=== PATIENT | male | born 1960 | race Caucasian/White ===

== ENCOUNTER 2024-03-30 17:10 | Inpatient (IN) | payer MEDICARE, SELFPAY ==
[2024-03-30] VITALS (12 sets, daily range): BP systolic 72–133; BP diastolic 36–103; PULSE 67–93; RESP 8–17; TEMP 36.3–37.6; O2SAT 93–99; BMI 24.1
--- NOTE | ~2024-03-30 | XR_ITS ---
CLINICAL HISTORY: hypotension sepsis? 1 view chest x-ray Comparison: None Findings: Consolidation within the left lower lung. Linear focus of atelectasis within the right infrahilar region. No gross evidence of pleural effusion. Normal size heart. No acute fracture. IMPRESSION: There is a focus of consolidation at the base of the left lung. This document has been electronically signed by: Nneka Ortiz MD on 03/30/2024 18:29:34
--- NOTE | 2024-03-30 17:25 | PC.NURSE ---
Addendum entered by Naida Rodriguez 03/30/24 17:28: POC rechecked 197 Original Note: poc found to be 37, IV established in left wrist d50 given.
--- NOTE | 2024-03-30 17:30 | ECG_ITS ---
Test Reason : AMS Blood Pressure : */* mmHG Vent. Rate : 79 BPM Atrial Rate : 79 BPM P-R Int : 130 ms QRS Dur : 68 ms QT Int : 396 ms P-R-T Axes : 9 -2 62 degrees QTcB Int : 454 ms Normal sinus rhythm Low voltage QRS Nonspecific T wave abnormality Abnormal ECG No previous ECGs available Referred By: Anjali Tsang Electronically Signed By: ASIF ELLISON
--- NOTE | 2024-03-30 17:31 | ED_ITS ---
HPI - Altered Mental Status General Chief Complaint: Altered Mental Status Stated Complaint: Hypotension Time Seen by Provider: 03/30/24 17:29 Source: EMS Mode of arrival: EMS Limitations: altered mental status History of Present Illness ED Provider: Dr. Anjali Tsang HPI narrative: Patient comes to the emergency room via ambulance from [facility]. According to EMS, the staff reported that at baseline, the patient is alert and oriented x3. Today, 20 minutes before EMS arrival, the patient was found unresponsive. Initially, EMS got a blood sugar of 87. When patient arrived to the ED, blood glucose was 37, patient unresponsive. Also, according to EMS, they initial blood pressure was in the 70s systolic. On arrival here was in the 110s systolic. Patient unresponsive, DNR DNI per molds form Related Data Allergies Allergy/AdvReac Type Severity Reaction Status Date / Time No Known Allergies Allergy Verified 03/30/24 17:23 Review of Systems 2 Review of Systems: Unresponsive Yes Unobtainable due to mental condition and Other PMFSH Past Medical History Medical History Hypertension Diabetes type 2 CVA (cerebral vascular accident) Social History Social History Smoked in Last 30 Days: No Use of substances other than those prescribed or required for medical reasons: No Advance Directives: Yes Advance Directives on File: Yes Advance Directives Date on File: 03/30/24 Do you have a plan to hurt others: No Plan Physical Exam ED Vital Signs: Vital Signs - 24 hr 03/30/24 17:20 03/30/24 18:02 03/30/24 19:08 Temperature 99.6 F 97.8 F Pulse Rate 93 79 71 Respiratory Rate 12 10 L 10 L Blood Pressure 119/103 H 76/45 L 91/53 L Pulse Oximetry 97 95 99 Oxygen Delivery Method Room Air Room Air Room Air 03/30/24 19:33 03/30/24 20:04 03/30/24 20:13 Temperature 97.5 F Pulse Rate 67 72 77 Respiratory Rate 8 L 12 Blood Pressure 106/65 90/51 L 101/64 Pulse Oximetry 99 Oxygen Delivery Method Room Air 03/30/24 20:21 03/30/24 20:45 03/30/24 21:20 Temperature 97.4 F 97.9 F Pulse Rate 72 72 75 Respiratory Rate 12 9 L Blood Pressure 105/36 L 104/66 111/70 Pulse Oximetry 97 Oxygen Delivery Method Room Air 03/30/24 21:45 03/30/24 23:26 03/30/24 23:43 Temperature 97.8 F 97.8 F 97.6 F Pulse Rate 68 72 69 Respiratory Rate 11 L 17 14 Blood Pressure 114/69 112/67 133/77 Pulse Oximetry 99 Oxygen Delivery Method Room Air BMI result Body Mass Index 24.1 Const Other: Appearance: Unresponsive, snoring Eyes: Pupils equal, round and reactive to light. ENT: Pharynx normal. Neck: Normal inspection. Neck supple. No lymph nodes noted. No crepitus CVS: Normal heart rate and rhythm. Pulses normal. Normal S1 and S2 Respiratory: No respiratory distress. Breath sounds normal. No Wheezing. No rales , oxygen saturation 99% on room air Abdomen: Soft and nontender. No rigidity. No distention. : Workman catheter in place Skin: Skin warm and dry. Dusky skin color. Normal skin turgor. Extremities: No lower extremity edema. No Lacerations. No Rash Neuro: Oriented X 3. No motor deficit. No sensory deficit. Moving all extremities. No slurred speech. CN 2 through 12 grossly intact Psych: calm, cooperative, normal affect Course Course Course Narrative: On arrival, patient's blood glucose 37. Patient unresponsive. Patient was given D50. Within a few minutes, patient woke up, started talking to us. Initial set of vitals: Patient's blood pressure 119/103, pulse 93, respirations 12, oxygen saturation 97% on room air All of patient's labs pending Medications Administered Discontinued Medications Generic Name Dose Route Start Last Admin Trade Name Osito PRN Reason Stop Dose Admin Ceftriaxone Sodium 1 gm 03/30/24 23:19 03/31/24 00:00 Ceftriaxone Sodium 1 Gm Vial IVPUSH 03/30/24 23:20 1 gm ONCE ONE Administration Sodium Chloride 200 mls @ 999 mls/hr 03/30/24 18:47 03/30/24 19:30 Ns IVCONT 03/30/24 18:59 Infused .Q13M ONE Infusion Magnesium Sulfate 2 gm in 50 mls @ 25 mls/hr 03/30/24 22:08 03/31/24 01:29 Magnesium Sulfate/H2o IV 03/31/24 00:07 Infused ONCE ONE Infusion Lactated Ringer's 1,000 mls @ 999 mls/hr 03/30/24 22:15 03/31/24 00:00 Lr IV 03/30/24 23:15 999 mls/hr .Q1H1M ANDREW Administration Medical Decision Making Medical Decision Making [facility] Narrative: -patient has had labile blood pressures. Patient had 2 blood pressures in the 70s, then went up to the 90s without any treatment. Chest x-ray shows consolidation of the left lower lung, patient is likely septic from pneumonia. At this time, 18:45, sepsis is suspected -patient was given a bolus of IV fluids, we are only doing a 200 mL bolus. Patient is anemic and will need blood as well, 2 units, total 1000mL of blood. Unfortunately, if we give any more fluids to the patient, this will result in hemodilution -patient's blood pressure keeps bouncing between 70s up to 90s systolic with a map of 65 I the patient becomes consistently hypotensive, we will start pressors. Patient's blood glucose improved to 98. Patient is completely awake, alert and oriented x3. I discussed with the patient that he has a low hemoglobin. Patient states that he has been told multiple times that his H and H drops. I discussed with the patient that ideally he should be getting a blood transfusion. Patient states that he has had it before, I discussed with the patient risks versus benefits, patient agreeable to proceed with the transfusion, sign the blood consent Chest x-ray shows that patient has pneumonia. However, patient has no upper respiratory symptoms. Patient is awake and alert, I discussed with the patient that he needs antibiotics and blood and antibiotics. Patient states that he only wants to receive blood. And states that he does not want to stay in the hospital. I discussed with the patient how sick he was earlier on arrival Dr. Jaeger from the Medicine team try to convince the patient to stay however patient states that he will accept the blood transfusion the antibiotics and then wants to leave, patient states that he refuses admission. We are trying to get in touch with the patient's facility to determine if patient has been assessed for capacity or if there is any healthcare proxy, there is no documentation in the papers that EMS brought. So far, patient has antibiotics and blood running. We will re-evaluate the patient in couple of hours after he gets his blood, hopefully convince him to stay. I discussed the patient with Dr. Jaeger , although the chest x-ray shows possible pneumonia. Patient has no upper respiratory symptoms at all. It is likely secondary to atelectasis rather than pneumonia. I was informed by the patient's nurses that his glucose dropped to 48. This is the 2nd time that his glucose drops. Patient is awake alert, eating. Patient was started on D5 W I discussed the above-mentioned with Dr. Jaeger, patient being admitted After taking to the patient, patient agreeable to stay Differential Diagnosis Differential Diagnoses: The differential diagnosis associated with the presentation includes (Sepsis, UTI, pneumonia) Admission/Observation Consideration of admission/observation: Escalation of care including admission/observation considered Consult Healthcare Provider Management of the patient was discussed with: Hospitalist Lab Data MDM Lab Attestation statement: I reviewed the patient's lab results. 03/30/24 17:37 03/30/24 18:26 Labs: Lab Results 03/30/24 03/30/24 03/30/24 Range/Units 17:19 17:26 17:28 WBC (4.8-10.8) X10*3/uL RBC (4.60-5.80) X10*6/uL Hgb (14.0-18.0) g/dl Hct (42.0-52.0) % MCV (80.0-98.0) fL MCH (27.0-33.0) pg MCHC (31.0-36.0) g/dl RDW (11.0-16.0) % Plt Count (160-400) X10*3/uL MPV (9.4-12.4) fL Immature Gran % (Auto) (0.0-0.4) % Neut % (Auto) (45-73) % Lymph % (Auto) (20-40) % [place] % (Auto) (2-11) % Eos % (Auto) (0-4) % Baso % (Auto) (0-2) % Lymph # (Auto) (1.2-4.9) X10*3/uL [place] # (Auto) (0.1-1.2) X10*3/uL Eos # (Auto) (0.0-0.4) X10*3/uL Baso # (Auto) (0.0-0.2) X10*3/uL Abs Immat Gran (auto) (0.00-0.03) X10*3/uL Absolute Neuts (auto) (2.0-8.3) x10*3/uL Absolute Nucleated RBC (0.0-0.012) X10*3/uL Nucleated RBC % (auto) (0.0-0.2) /100WBC Hold Purple Top Hold Blue Top Sodium (135-145) mmol/L Potassium (3.3-5.1) mmol/L Chloride (96-108) mmol/L Carbon Dioxide (22-29) mmol/L Anion Gap (12-20) BUN (9-16) mg/dL Creatinine (0.5-1.4) mg/dL Estim Creat Clear Calc Estimated GFR POC Glucose 37 L* 123 H 197 H (60-115) mg/dL Random Glucose (60-115) mg/dL Lactic Acid (0.5-2.0) mmol/L Lactic Acid F/U @ 2Hr (0.5-2.0) mmol/L Lactic Acid F/U @ 4Hr (0.5-2.0) mmol/L Calcium (8.4-10.2) mg/dL Magnesium (1.6-2.6) mg/dL Iron (45-160) mcg/dL TIBC (228-428) mcg/dL % Saturation (15-50) % Unsat Iron Binding ug/dL Total Bilirubin (0.0-1.0) mg/dL Direct Bilirubin (0.0-0.5) mg/dL AST (5-37) U/L ALT (0-40) U/L Alkaline Phosphatase (39-117) U/L Troponin I High Sens (<3.5-35.0) ng/L Total Protein (6.5-8.0) g/dL Albumin (3.5-5.0) g/dL Urine Color Urine Appearance Urine pH (5.0-9.0) Ur Specific [place] (1.005-1.025) Urine Protein (Neg-Trace) mg/dL Urine Glucose (UA) (Negative) mg/dL Urine Ketones (Negative) mg/dL Urine Blood (Negative) Urine Nitrite (Negative) Ur Leukocyte Esterase (Negative) Urine RBC (0-2) /HPF Urine WBC (0-5) /HPF Ur Squamous Epith Cells (0-2) /HPF Urine Bacteria (None Seen) Hyaline Casts (0-2) /LPF Urine Yeast Stool Occult Blood (NEGATIVE) Urine Opiates Screen (Not Detect) Ur Buprenorphine Scrn (Not Detect) ng/mL Ur Oxycodone Screen (Not Detect) ng/mL Urine Methadone Screen (Not Detect) ng/mL Urine Fentanyl Screen (Not Detect) Ur Barbiturates Screen (Not Detect) Ur Phencyclidine Scrn (Not Detect) Ur Amphetamines Screen (Not Detect) U Benzodiazepines Scrn (Not Detect) Urine Cocaine Screen (Not Detect) U Marijuana (THC) Screen (Not Detect) Ethyl Alcohol mg/dL Blood Type Antibody Screen Crossmatch 03/30/24 03/30/24 03/30/24 Range/Units 17:37 17:39 18:13 WBC 4.3 L (4.8-10.8) X10*3/uL RBC 2.16 L (4.60-5.80) X10*6/uL Hgb 7.2 L (14.0-18.0) g/dl Hct 20.8 L* (42.0-52.0) % MCV 96.3 (80.0-98.0) fL MCH 33.3 H (27.0-33.0) pg MCHC 34.6 (31.0-36.0) g/dl RDW 15.9 (11.0-16.0) % Plt Count 275 (160-400) X10*3/uL MPV 8.6 L (9.4-12.4) fL Immature Gran % (Auto) 0.5 H (0.0-0.4) % Neut % (Auto) 64.4 (45-73) % Lymph % (Auto) 24.6 (20-40) % [place] % (Auto) 9.8 (2-11) % Eos % (Auto) 0.5 (0-4) % Baso % (Auto) 0.2 (0-2) % Lymph # (Auto) 1.1 L (1.2-4.9) X10*3/uL [place] # (Auto) 0.4 (0.1-1.2) X10*3/uL Eos # (Auto) 0.0 (0.0-0.4) X10*3/uL Baso # (Auto) 0.0 (0.0-0.2) X10*3/uL Abs Immat Gran (auto) 0.02 (0.00-0.03) X10*3/uL Absolute Neuts (auto) 2.8 (2.0-8.3) x10*3/uL Absolute Nucleated RBC 0.000 (0.0-0.012) X10*3/uL Nucleated RBC % (auto) 0.0 (0.0-0.2) /100WBC Hold Purple Top SEE NOTE Hold Blue Top SEE NOTE Sodium (135-145) mmol/L Potassium (3.3-5.1) mmol/L Chloride (96-108) mmol/L Carbon Dioxide (22-29) mmol/L Anion Gap (12-20) BUN (9-16) mg/dL Creatinine (0.5-1.4) mg/dL Estim Creat Clear Calc Estimated GFR POC Glucose (60-115) mg/dL Random Glucose (60-115) mg/dL Lactic Acid 3.3 H* (0.5-2.0) mmol/L Lactic Acid F/U @ 2Hr (0.5-2.0) mmol/L Lactic Acid F/U @ 4Hr (0.5-2.0) mmol/L Calcium (8.4-10.2) mg/dL Magnesium (1.6-2.6) mg/dL Iron (45-160) mcg/dL TIBC (228-428) mcg/dL % Saturation (15-50) % Unsat Iron Binding ug/dL Total Bilirubin (0.0-1.0) mg/dL Direct Bilirubin (0.0-0.5) mg/dL AST (5-37) U/L ALT (0-40) U/L Alkaline Phosphatase (39-117) U/L Troponin I High Sens < 2.7 (<3.5-35.0) ng/L Total Protein (6.5-8.0) g/dL Albumin (3.5-5.0) g/dL Urine Color Yellow Urine Appearance Cloudy Urine pH 7.0 (5.0-9.0) Ur Specific [place] 1.020 (1.005-1.025) Urine Protein Trace (Neg-Trace) mg/dL Urine Glucose (UA) Negative (Negative) mg/dL Urine Ketones Negative (Negative) mg/dL Urine Blood Negative (Negative) Urine Nitrite Negative (Negative) Ur Leukocyte Esterase Large (3+) H (Negative) Urine RBC 0-2 (0-2) /HPF Urine WBC 6-10 (0-5) /HPF Ur Squamous Epith Cells 0-2 (0-2) /HPF Urine Bacteria None Seen (None Seen) Hyaline Casts 0-2 (0-2) /LPF Urine Yeast Present Stool Occult Blood (NEGATIVE) Urine Opiates Screen POSITIVE H (Not Detect) Ur Buprenorphine Scrn Not Detected (Not Detect) ng/mL Ur Oxycodone Screen Positive H (Not Detect) ng/mL Urine Methadone Screen Not Detected (Not Detect) ng/mL Urine Fentanyl Screen Not Detected (Not Detect) Ur Barbiturates Screen Not Detected (Not Detect) Ur Phencyclidine Scrn Not Detected (Not Detect) Ur Amphetamines Screen Not Detected (Not Detect) U Benzodiazepines Scrn Not Detected (Not Detect) Urine Cocaine Screen Not Detected (Not Detect) U Marijuana (THC) Screen POSITIVE H (Not Detect) Ethyl Alcohol mg/dL Blood Type A Negative Antibody Screen NEGATIVE Crossmatch See Detail 03/30/24 03/30/24 03/30/24 Range/Units 18:26 20:07 21:43 WBC (4.8-10.8) X10*3/uL RBC (4.60-5.80) X10*6/uL Hgb (14.0-18.0) g/dl Hct (42.0-52.0) % MCV (80.0-98.0) fL MCH (27.0-33.0) pg MCHC (31.0-36.0) g/dl RDW (11.0-16.0) % Plt Count (160-400) X10*3/uL MPV (9.4-12.4) fL Immature Gran % (Auto) (0.0-0.4) % Neut % (Auto) (45-73) % Lymph % (Auto) (20-40) % [place] % (Auto) (2-11) % Eos % (Auto) (0-4) % Baso % (Auto) (0-2) % Lymph # (Auto) (1.2-4.9) X10*3/uL [place] # (Auto) (0.1-1.2) X10*3/uL Eos # (Auto) (0.0-0.4) X10*3/uL Baso # (Auto) (0.0-0.2) X10*3/uL Abs Immat Gran (auto) (0.00-0.03) X10*3/uL Absolute Neuts (auto) (2.0-8.3) x10*3/uL Absolute Nucleated RBC (0.0-0.012) X10*3/uL Nucleated RBC % (auto) (0.0-0.2) /100WBC Hold Purple Top Hold Blue Top Sodium 138 (135-145) mmol/L Potassium 4.5 (3.3-5.1) mmol/L Chloride 103 (96-108) mmol/L Carbon Dioxide 27 (22-29) mmol/L Anion Gap 13 (12-20) BUN 24 H (9-16) mg/dL Creatinine 0.78 (0.5-1.4) mg/dL Estim Creat Clear Calc 94.4 Estimated GFR > 60 POC Glucose (60-115) mg/dL Random Glucose 98 (60-115) mg/dL Lactic Acid (0.5-2.0) mmol/L Lactic Acid F/U @ 2Hr 2.9 H* (0.5-2.0) mmol/L Lactic Acid F/U @ 4Hr (0.5-2.0) mmol/L Calcium 7.6 L (8.4-10.2) mg/dL Magnesium 1.5 L (1.6-2.6) mg/dL Iron (45-160) mcg/dL TIBC (228-428) mcg/dL % Saturation (15-50) % Unsat Iron Binding ug/dL Total Bilirubin 0.3 (0.0-1.0) mg/dL Direct Bilirubin 0.1 (0.0-0.5) mg/dL AST 32 (5-37) U/L ALT 13 (0-40) U/L Alkaline Phosphatase 115 (39-117) U/L Troponin I High Sens (<3.5-35.0) ng/L Total Protein 4.2 L (6.5-8.0) g/dL Albumin 1.6 L (3.5-5.0) g/dL Urine Color Urine Appearance Urine pH (5.0-9.0) Ur Specific [place] (1.005-1.025) Urine Protein (Neg-Trace) mg/dL Urine Glucose (UA) (Negative) mg/dL Urine Ketones (Negative) mg/dL Urine Blood (Negative) Urine Nitrite (Negative) Ur Leukocyte Esterase (Negative) Urine RBC (0-2) /HPF Urine WBC (0-5) /HPF Ur Squamous Epith Cells (0-2) /HPF Urine Bacteria (None Seen) Hyaline Casts (0-2) /LPF Urine Yeast Stool Occult Blood NEGATIVE (NEGATIVE) Urine Opiates Screen (Not Detect) Ur Buprenorphine Scrn (Not Detect) ng/mL Ur Oxycodone Screen (Not Detect) ng/mL Urine Methadone Screen (Not Detect) ng/mL Urine Fentanyl Screen (Not Detect) Ur Barbiturates Screen (Not Detect) Ur Phencyclidine Scrn (Not Detect) Ur Amphetamines Screen (Not Detect) U Benzodiazepines Scrn (Not Detect) Urine Cocaine Screen (Not Detect) U Marijuana (THC) Screen (Not Detect) Ethyl Alcohol < 10 mg/dL Blood Type Antibody Screen Crossmatch 03/30/24 03/31/24 Range/Units 22:50 01:42 WBC (4.8-10.8) X10*3/uL RBC (4.60-5.80) X10*6/uL Hgb (14.0-18.0) g/dl Hct (42.0-52.0) % MCV (80.0-98.0) fL MCH (27.0-33.0) pg MCHC (31.0-36.0) g/dl RDW (11.0-16.0) % Plt Count (160-400) X10*3/uL MPV (9.4-12.4) fL Immature Gran % (Auto) (0.0-0.4) % Neut % (Auto) (45-73) % Lymph % (Auto) (20-40) % [place] % (Auto) (2-11) % Eos % (Auto) (0-4) % Baso % (Auto) (0-2) % Lymph # (Auto) (1.2-4.9) X10*3/uL [place] # (Auto) (0.1-1.2) X10*3/uL Eos # (Auto) (0.0-0.4) X10*3/uL Baso # (Auto) (0.0-0.2) X10*3/uL Abs Immat Gran (auto) (0.00-0.03) X10*3/uL Absolute Neuts (auto) (2.0-8.3) x10*3/uL Absolute Nucleated RBC (0.0-0.012) X10*3/uL Nucleated RBC % (auto) (0.0-0.2) /100WBC Hold Purple Top Hold Blue Top Sodium (135-145) mmol/L Potassium (3.3-5.1) mmol/L Chloride (96-108) mmol/L Carbon Dioxide (22-29) mmol/L Anion Gap (12-20) BUN (9-16) mg/dL Creatinine (0.5-1.4) mg/dL Estim Creat Clear Calc Estimated GFR POC Glucose 48 L* (60-115) mg/dL Random Glucose (60-115) mg/dL Lactic Acid (0.5-2.0) mmol/L Lactic Acid F/U @ 2Hr (0.5-2.0) mmol/L Lactic Acid F/U @ 4Hr 2.3 H* (0.5-2.0) mmol/L Calcium (8.4-10.2) mg/dL Magnesium (1.6-2.6) mg/dL Iron 105 (45-160) mcg/dL TIBC 130 L (228-428) mcg/dL % Saturation 81 H (15-50) % Unsat Iron Binding < 25 ug/dL Total Bilirubin (0.0-1.0) mg/dL Direct Bilirubin (0.0-0.5) mg/dL AST (5-37) U/L ALT (0-40) U/L Alkaline Phosphatase (39-117) U/L Troponin I High Sens (<3.5-35.0) ng/L Total Protein (6.5-8.0) g/dL Albumin (3.5-5.0) g/dL Urine Color Urine Appearance Urine pH (5.0-9.0) Ur Specific [place] (1.005-1.025) Urine Protein (Neg-Trace) mg/dL Urine Glucose (UA) (Negative) mg/dL Urine Ketones (Negative) mg/dL Urine Blood (Negative) Urine Nitrite (Negative) Ur Leukocyte Esterase (Negative) Urine RBC (0-2) /HPF Urine WBC (0-5) /HPF Ur Squamous Epith Cells (0-2) /HPF Urine Bacteria (None Seen) Hyaline Casts (0-2) /LPF Urine Yeast Stool Occult Blood (NEGATIVE) Urine Opiates Screen (Not Detect) Ur Buprenorphine Scrn (Not Detect) ng/mL Ur Oxycodone Screen (Not Detect) ng/mL Urine Methadone Screen (Not Detect) ng/mL Urine Fentanyl Screen (Not Detect) Ur Barbiturates Screen (Not Detect) Ur Phencyclidine Scrn (Not Detect) Ur Amphetamines Screen (Not Detect) U Benzodiazepines Scrn (Not Detect) Urine Cocaine Screen (Not Detect) U Marijuana (THC) Screen (Not Detect) Ethyl Alcohol mg/dL Blood Type Antibody Screen Crossmatch Critical Care Time Critical Care Time Critical Care Time: Yes Total Critical Care Time: 60 Attestation: I have personally provided critical care time. Time includes review of lab data, radiology results, discussion with consultants, and monitoring for potential decompensation. Intervention performed as documented. Discharge Plan Discharge Clinical Impression: Altered mental status, Hypoglycemia, Acute hypotension, Anemia Patient Disposition: Admitted As Inpatient Print Language: Spanish Sepsis Bolus Exclusion Sepsis Bolus Exclusion CHF/Renal Failure This patient met severe sepsis criteria due to the following condition(s):: H ypotension In my clinical judgement the administration of 30 ml/kg of crystalloid would be detrimental to this patient due to the patient's following conditions:: Other (Hemodilution) Replace the 30 mls/kg with (Zero amount not acceptable and all fluids for severe sepsis must be given at GREATER than 125 mls/hr) Crystalloids amount given in mls: (rate must be at least 150cc/hr): 200 Colloids amount given in mls:: 200
[2024-03-30 17:41] LABS: MANUAL DIFF FLAG NO
[2024-03-30 17:46] LABS: Basophils Percent Auto 0.2 % (0-2); Eosinophils Percent Auto 0.5 % (0-4); Hemoglobin 7.2 g/dl (14.0-18.0); Imm Gran Abs Auto 0.02 X10*3/uL (0.00-0.03); Imm Gran Pct Auto 0.5 % (0.0-0.4); Lymphocytes Absolute Auto 1.1 X10*3/uL (1.2-4.9); Lymphocytes Percent Auto 24.6 % (20-40); Mean Corpuscular HGB Conc 34.6 g/dl (31.0-36.0); Mean Corpuscular Hemoglobin 33.3 pg (27.0-33.0); Mean Corpuscular Volume 96.3 fL (80.0-98.0); Mean Platelet Volume 8.6 fL (9.4-12.4); Monocytes Absolute Auto 0.4 X10*3/uL (0.1-1.2); Monocytes Percent Auto 9.8 % (2-11); Neutrophils Absolute Auto 2.8 x10*3/uL (2.0-8.3); Neutrophils Percent Auto 64.4 % (45-73); Platelet Count 275 X10*3/uL (160-400); Red Blood Count 2.16 X10*6/uL (4.60-5.80); Red Cell Distribution Width 15.9 % (11.0-16.0); White Blood Count 4.3 X10*3/uL (4.8-10.8)
[2024-03-30 17:50] LABS: Hematocrit 20.8 % (42.0-52.0)
[2024-03-30 17:51] LABS: Glucose, Whole Blood 123 mg/dL (60-115)
[2024-03-30 17:51] LABS: Glucose, Whole Blood 37 mg/dL (60-115)
[2024-03-30 17:52] LABS: Glucose, Whole Blood 197 mg/dL (60-115)
[2024-03-30 18:06] LABS: Troponin-I High Sensitivity < 2.7 ng/L (<3.5-35.0)
[2024-03-30 18:07] LABS: Lactic Acid 3.3 mmol/L (0.5-2.0)
--- NOTE | 2024-03-30 18:23 | PC.NURSE ---
coming from [facility] for ams, per EMS patient became hypotensive and tachycardic w/ not much other information provided from facility. upon arrival, patients poc was 37 - IV established w/ d50 pushed via IV. patient became awake and alert s/p medication. labs obtained and sent. afebrile. currently at this time patient is hypotensive however denies dizziness/shortness of breath. repeat cmp and second type and screen being obtained. patient states he has a history of blood transfusions. two IV in left arm.
[2024-03-30 18:25] LABS: Appearance Urine Cloudy; Color Urine Yellow; Glucose Urine UA Negative (Negative); Leukocyte Esterase Urine Large (3+) (Negative); Nitrite Urine Negative (Negative); UMIC TRIGGER UACC YES; Urine Blood Negative (Negative); Urine Ketones Negative (Negative); Urine Protein Trace mg/dL (Neg-Trace)
--- OUTSIDE RECORDS SUMMARY | 2024-03-30 18:28 | XMS_ITS ---
Author Name [facility] Organization Unknown History of Medication Use Medication Directions Dispensed Refills Start Date End Date Stat magnesium oxide 400 (240 Mg) MG Tab tablet Take 1 tablet (400 mg total) by mouth 2 (two) times a day. Take 2 hours apart from other medications; take with food 12/23/2023 active apixaban (ELIQUIS) 5 MG tablet Take 2 tablets (10 mg total) by mouth every 12 (twelve) hours around the clock. 12/23/2023 active senna-docusate (SENNA-S) 8.6-50 MG Take 2 tablets by mouth nightly. 12/23/2023 active cholecalciferol (VITAMIN D3) 00425 units capsule Take 1 capsule (50,000 Units total) by mouth once a week. 12/23/2023 active lisinopril (PRINIVIL,ZeSTRIL) 2.5 MG tablet Take 1 tablet (2.5 mg total) by mouth daily. 08/08/2023 active gabapentin (NEURONTIN) 400 MG capsule Take 1 capsule (400 mg total) by mouth 3 (three) times a day. 08/08/2023 active tamsulosin (FLOMAX) 0.4 MG capsule Take 1 capsule (0.4 mg total) by mouth daily. 08/08/2023 active HYDROmorphone (DILAUDID) 4 MG tablet Take 1 tablet (4 mg total) by mouth 3 times daily (every 8 hours) as needed for severe pain. Max Daily Amount: 12 mg 08/08/2023 active glipiZIDE (GLUCOTROL XL) 2.5 MG 24 hr tablet Take 1 tablet (2.5 mg total) by mouth every morning with breakfast. 08/08/2023 active PANTOprazole (PROTONIX) 40 MG EC tablet Take 1 tablet (40 mg total) by mouth every morning before breakfast. 08/08/2023 active levETIRAcetam (KEPPRA) 250 MG tablet Take 1 tablet (250 mg total) by mouth 2 (two) times a day. 08/08/2023 active apixaban (ELIQUIS) 5 MG tablet Take 1 tablet (5 mg total) by mouth every 12 (twelve) hours around the clock. Do not start before May 04, 2023. 08/08/2023 active aspirin 81 MG chewable tablet Chew 1 tablet (81 mg total) daily. 08/08/2023 active Problems Problem Status Onset Date Problem Type Date of Resoluti on Source Pulmonary embolism active 2023-04-23 ProblemAct [facility] Gastric outlet obstruction active 2023-04-23 ProblemAct [facility] Moderate malnutrition active 2023-04-27 ProblemAct [facility] Gastric mass active 2023-04-23 ProblemAct [facility] Mass of pancreas active 2023-04-23 ProblemAct [facility] DM (diabetes mellitus) active 2023-04-23 ProblemAct [facility] CHF (congestive heart failure) active 2023-04-23 ProblemAct [facility] Dyspepsia active 2023-04-23 ProblemAct [facility] Alcohol abuse active 2023-04-23 ProblemAct [facility] T CAD (coronary artery disease) active 2023-04-23 ProblemAct [facility]
[2024-03-30 18:35] LABS: Amphetamine Screen Urine Not Detected (Not Detect); Barbiturates, Urine Not Detected (Not Detect); Benzodiazepines Screen Urine Not Detected (Not Detect); Buprenorphine Scr Not Detected (Not Detect); Cannabinoid Screen Urine POSITIVE (Not Detect); Cocaine Screen Urine Not Detected (Not Detect); Fentanyl, urine Not Detected (Not Detect); Methadone Screen, Urine Not Detected (Not Detect); Opiate Screen Urine POSITIVE (Not Detect); Oxycodone Screen Urine Positive (Not Detect); Phencyclidine Screen Urine Not Detected (Not Detect)
[2024-03-30 18:50] LABS: Alanine Aminotransferase 13 U/L (0-40); Albumin Level 1.6 g/dL (3.5-5.0); Alkaline Phosphatase 115 U/L (39-117); Anion Gap 13 (12-20); Aspartate Amino Transferase 32 U/L (5-37); Bilirubin Direct 0.1 mg/dL (0.0-0.5); Bilirubin Total 0.3 mg/dL (0.0-1.0); Blood Urea Nitrogen 24 mg/dL (9-16); Calcium 7.6 mg/dL (8.4-10.2); Carbon Dioxide 27 mmol/L (22-29); Chloride 103 mmol/L (96-108); Creatinine Clr Calc Pharmacy 94.4; Estimated Glomerular Filt Rate > 60; Ethanol < 10 mg/dL; Glucose Random 98 mg/dL (60-115); Magnesium 1.5 mg/dL (1.6-2.6); Potassium 4.5 mmol/L (3.3-5.1); Sodium 138 mmol/L (135-145); Total Protein 4.2 g/dL (6.5-8.0)
[2024-03-30 18:58] LABS: Bacteria Urine None Seen (None Seen); Hyaline Casts Urine 0-2 /LPF (0-2); RBC Urine 0-2 /HPF (0-2); Squamous Epithelial Cell Urine 0-2 /HPF (0-2); UACC Culture Trigger YES
--- NOTE | 2024-03-30 19:30 | PC.NURSE ---
Dr. Tsang stated to this RN that pt will recieve 200 mL bolus of saline for sepsis protocol prior to blood transfusion
[2024-03-30 19:40] LABS: Reflex Lactate? Lactic Acid Added
--- NOTE | 2024-03-30 19:57 | PC.NURSE ---
Pts o2 sat 94% RA. During ambulation trial o2 sat dropped to 91-92%. Pt reports no discomfort and wishes to be discharged. made aware.
[2024-03-30 20:32] LABS: ~Lactic Acid-LAB USE ONLY 2.9 mmol/L (0.5-2.0)
[2024-03-30 21:53] LABS: OBS1 NEGATIVE (NEGATIVE)
[2024-03-30 21:54] LABS: OBS Int Ctl Valid YES
[2024-03-30 22:10] LABS: Reflex Lactate? 2 Y
[2024-03-30 23:16] LABS: Iron 105 mcg/dL (45-160); Percent Iron Saturation 81 % (15-50); Total Iron Binding Capacity 130 mcg/dL (228-428); Unsaturated Iron Binding < 25 ug/dL
[2024-03-30 23:19] LABS: ~Lactic Acid-LAB USE ONLY 2.3 mmol/L (0.5-2.0)
[2024-03-30] MEDS: Magnesium Sulfate/H2O 2 GM/50 ML PIGGYBACK IV (23:19)
[2024-03-30] MEDS: cefTRIAXone sodium 1 GM VIAL IVPUSH (23:46)
[2024-03-31] MEDS: Lactated Ringers 1,000 ML 999 ML IV
--- NOTE | 2024-03-31 00:05 | PC.NURSE ---
Called pts nursing facility and spoke to the nurse who states that pts health care proxy is not invoked and pt makes all of his own medical decisions at this time. made aware.
[2024-03-31 01:49] LABS: Glucose, Whole Blood 48 mg/dL (60-115)
--- NOTE | 2024-03-31 02:05 | PC.NURSE ---
at 0142 POC glucose found to be 48. pt awake, alert, no changes, pt denies complaints. MD Tsang aware. pt drank 8 oz juice and now eating tuna sandwich with breanna angel. call ferrer in reach, q1h glucose checks ordered
[2024-03-31 02:09] VITALS: BP 138/79; PULSE 57; RESP 13; TEMP 36.4
[2024-03-31 02:53] LABS: Glucose, Whole Blood 100 mg/dL (60-115)
[2024-03-31 03:02] LABS: MANUAL DIFF FLAG NO
[2024-03-31] MEDS: Dextrose 5 % and 0.9 % NaCl 1,000 ML 100 ML IVCONT ×2 (03:03→12:24)
[2024-03-31 03:05] LABS: Basophils Percent Auto 0.5 % (0-2); Eosinophils Absolute Auto 0.1 X10*3/uL (0.0-0.4); Eosinophils Percent Auto 1.1 % (0-4); Hematocrit 32.6 % (42.0-52.0); Hemoglobin 11.6 g/dl (14.0-18.0); Imm Gran Abs Auto 0.02 X10*3/uL (0.00-0.03); Imm Gran Pct Auto 0.3 % (0.0-0.4); Lymphocytes Absolute Auto 1.7 X10*3/uL (1.2-4.9); Lymphocytes Percent Auto 26.7 % (20-40); Mean Corpuscular HGB Conc 35.6 g/dl (31.0-36.0); Mean Corpuscular Hemoglobin 32.4 pg (27.0-33.0); Mean Corpuscular Volume 91.1 fL (80.0-98.0); Mean Platelet Volume 8.5 fL (9.4-12.4); Monocytes Absolute Auto 0.6 X10*3/uL (0.1-1.2); Monocytes Percent Auto 9.6 % (2-11); Neutrophils Percent Auto 61.8 % (45-73); Platelet Count 255 X10*3/uL (160-400); Red Blood Count 3.58 X10*6/uL (4.60-5.80); Red Cell Distribution Width 16.9 % (11.0-16.0); White Blood Count 6.5 X10*3/uL (4.8-10.8)
[2024-03-31] MEDS: Acetaminophen 325 MG TABLET 650 MG PO ×2 (03:07→12:22)
[2024-03-31 03:18] LABS: Anion Gap 10 (12-20); Blood Urea Nitrogen 22 mg/dL (9-16); Carbon Dioxide 30 mmol/L (22-29); Chloride 103 mmol/L (96-108); Creatinine Clr Calc Pharmacy 98.1; Estimated Glomerular Filt Rate > 60; Glucose Random 99 mg/dL (60-115); Potassium 4.9 mmol/L (3.3-5.1); Sodium 138 mmol/L (135-145)
--- NOTE | 2024-03-31 03:33 | PM.IMHP ---
History of Present Illness Date of Service: 03/31/24 <EVARISTO Colon Last Filed: 03/31/24 03:51> Attending physician on admission: Godfrey Jaeger <EVARISTO Colon Last Filed: 03/31/24 03:51> Chief Complaint: AMS, hypoglycemia <EVARISTO Colon Last Filed: 03/31/24 03:51> Patient is a 63-year-old male with a past medical history significant for HTN, T2DM and history CVA, resides at [facility] and was brought to the ED via EMS due to hypoglycemia and altered mental status. Upon arrival his point of care was 37 and he was hypotensive and lethargic. The patient reports he has not gotten any of his insulin today due to hypoglycemia. Recently did have a GI illness with significant diarrhea which he reports he was treated with antibiotics for, we do not have record of this. He denies any headache, chest pain, shortness breath, cough, fever chills, abdominal pain or urinary symptoms including dysuria, frequency or urgency. <EVARISTO Colon Last Filed: 03/31/24 03:51> Review of Systems Constitutional: Constitutional: Denies body ache(s), Denies chills, Denies fatigue, Denies fever(s) and Denies headache(s) <EVARISTO Colon Last Filed: 03/31/24 03:51> Eyes: Eyes: Denies change in vision <EVARISTO Colon Last Filed: 03/31/24 03:51> ENT: Denies headache(s), Denies nasal congestion, Denies nasal discharge and Denies sore throat <EVARISTO Colon Last Filed: 03/31/24 03:51> Cardiovascular: Cardiovascular: Denies chest pain, Denies rapid heart rate, Denies leg edema, Denies lightheadedness and Denies dyspnea <EVARISTO Colon Last Filed: 03/31/24 03:51> Respiratory: Respiratory: Denies chest congestion, Denies cough, Denies dyspnea and Denies wheezing <EVARISTO Colon Last Filed: 03/31/24 03:51> Gastrointestinal: Gastrointestinal: Denies melena, Denies hematochezia, Denies constipation, Reports diarrhea, Denies nausea and Denies vomiting <Kemi London PA-C Last Filed: 03/31/24 03:51> Genitourinary: Genitourinary: Denies dysuria, Denies urinary frequency and Denies urinary urgency <Kemi London PA-C Filed: 03/31/24 03:51> Musculoskeletal: Musculoskeletal: Denies myalgias and Denies arthralgias <JEANCARLOS Colon Filed: 03/31/24 03:51> Integumentary/Breasts: Skin/Breast: Denies rash <Kemi London PA-C Filed: 03/31/24 03:51> Neurologic: Reports as per HPI, Reports confusion and Denies headache(s) <JEANCARLOS Colon Filed: 03/31/24 03:51> Psychiatric: Psychiatric: Reports confusion <JEANCARLOS Colon Filed: 03/31/24 03:51> Endocrine: Endocrine: Denies fatigue <Kemi London PA-C Filed: 03/31/24 03:51> Hematologic/Lymphatic: Hematologic/Lymphatic: Denies easy bleeding and Denies easy bruising <JEANCARLOS Colon Last Filed: 03/31/24 03:51> Allergic/Immunologic: Allergic/Immunologic: Denies wheezing <JEANCARLOS Colon Last Filed: 03/31/24 03:51> [facility] Medical History: Medical History Hypertension Diabetes type 2 CVA (cerebral vascular accident) <Kemi London PA-C Last Filed: 03/31/24 03:51> Social History: Social History Smoked in Last 30 Days: No Use of substances other than those prescribed or required for medical reasons: No Advance Directives: Yes Advance Directives on File: Yes Advance Directives Date on File: 03/30/24 Do you have a plan to hurt others: No Plan <Kemi London PA-C - Last Filed: 03/31/24 03:51> Narrative: No smoking, alcohol or drug use, resides at [facility] <Kemi London PA-C - Last Filed: 03/31/24 03:51> Meds Allergies/Adverse reactions: Allergies Allergy/AdvReac Type Severity Reaction Status Date / Time No Known Allergies Allergy Verified 03/30/24 17:23 <Kemi London PA-C - Last Filed: 03/31/24 03:51> Active Medications: Current Medications Acetaminophen (Acetaminophen 325 Mg Tablet) 650 mg PO Q6H PRN PRN Reason: Pain, Mild 1-3,fever,headache Last Admin: 03/31/24 03:07 Dose: 650 mg Calcium Carbonate (Calcium Carbonate 750 Mg Tab.Chew) 750 mg PO Q4H PRN PRN Reason: Heartburn Glucose (Glucose Gel 15 Gm Gel..Gram.) 15 gm PO Q15M PRN; Protocol PRN Reason: per Hypoglycemia Standing Ord. Dextrose (D10) 250 mls @ 750 mls/hr IV Q15M PRN; Protocol PRN Reason: per Hypoglycemia Standing Ord. Dextrose/Sodium Chloride (D5ns) 1,000 mls @ 100 mls/hr IVCONT .Q10H ANDREW Last Admin: 03/31/24 03:03 Dose: 100 mls/hr Magnesium Hydroxide (Milk Of Magnesia 30 Ml Oral.Susp) 30 ml PO DAILY PRN PRN Reason: Constipation Melatonin (Melatonin 3 Mg Tablet) 6 mg PO BEDTIME PRN PRN Reason: Insomnia Ondansetron HCl (Ondansetron Hcl 4 Mg/2 Ml Vial) 4 mg IVPUSH Q8H PRN PRN Reason: Nausea and Vomiting Sodium Chloride (0.9 % Sodium Chloride Flush 3 Ml Syringe) 3 ml IVFLUSH QSHIFT [facility] <Kemi London PA-C - Last Filed: 03/31/24 03:51> Physical Exam Vital Signs and Narrative: Vital Signs: Last Vital Signs Temp 97.6 F 03/31/24 02:09 Pulse 57 03/31/24 02:09 Resp 13 03/31/24 02:09 BP 138/79 03/31/24 02:09 Pulse Ox 99 03/30/24 21:45 O2 Del Method Room Air 03/30/24 21:45 BMI result Body Mass Index 24.1 <Kemi London PA-C - Last Filed: 03/31/24 03:51> General: AOx3, no acute distress Resp: CTA bilaterally CVS: S1, S2, RRR GI: +BS, NT, no distention Skin: Warm, dry Neuro: Cranial nerves II-XII grossly intact bilaterally. Motor grossly intact bilaterally Extremities: No LE edema Psych: Appropriate affect <Kemi London PA-C - Last Filed: 03/31/24 03:51> Const: General: confusion <Kemi London PA-C - Last Filed: 03/31/24 03:51> Orientation/consciousness: confusion <Kemi London PA-C - Last Filed: 03/31/24 03:51> Neuro: General: confusion <Kemi London PA-C - Last Filed: 03/31/24 03:51> Results Labs CBC and Chem 7: 03/31/24 02:55 03/31/24 02:55 <Kemidmitry London PA-C - Last Filed: 03/31/24 03:51> Labs: Laboratory Results - last 24 hr 03/30/24 03/30/24 03/30/24 17:19 17:26 17:28 MCV MCH MCHC RDW Plt Count MPV Immature Gran % (Auto) Neut % (Auto) Lymph % (Auto) [place] % (Auto) Eos % (Auto) Baso % (Auto) Lymph # (Auto) [place] # (Auto) Eos # (Auto) Baso # (Auto) Abs Immat Gran (auto) Absolute Neuts (auto) Absolute Nucleated RBC Nucleated RBC % (auto) Hold Purple Top Hold Blue Top Anion Gap Estim Creat Clear Calc Estimated GFR POC Glucose 37 L* 123 H 197 H Random Glucose Lactic Acid Lactic Acid F/U @ 2Hr Lactic Acid F/U @ 4Hr Calcium Magnesium Iron TIBC % Saturation Unsat Iron Binding Total Bilirubin Direct Bilirubin AST ALT Alkaline Phosphatase Troponin I High Sens Total Protein Albumin Urine Color Urine Appearance Urine pH Ur Specific [place] Urine Protein Urine Glucose (UA) Urine Ketones Urine Blood Urine Nitrite Ur Leukocyte Esterase Urine RBC Urine WBC Ur Squamous Epith Cells Urine Bacteria Hyaline Casts Urine Yeast Stool Occult Blood Urine Opiates Screen Ur Buprenorphine Scrn Ur Oxycodone Screen Urine Methadone Screen Urine Fentanyl Screen Ur Barbiturates Screen Ur Phencyclidine Scrn Ur Amphetamines Screen U Benzodiazepines Scrn Urine Cocaine Screen U Marijuana (THC) Screen Ethyl Alcohol Blood Type Antibody Screen Crossmatch 03/30/24 03/30/24 03/30/24 17:37 17:39 18:13 MCV 96.3 MCH 33.3 H MCHC 34.6 RDW 15.9 Plt Count 275 MPV 8.6 L Immature Gran % (Auto) 0.5 H Neut % (Auto) 64.4 Lymph % (Auto) 24.6 [place] % (Auto) 9.8 Eos % (Auto) 0.5 Baso % (Auto) 0.2 Lymph # (Auto) 1.1 L [place] # (Auto) 0.4 Eos # (Auto) 0.0 Baso # (Auto) 0.0 Abs Immat Gran (auto) 0.02 Absolute Neuts (auto) 2.8 Absolute Nucleated RBC 0.000 Nucleated RBC % (auto) 0.0 Hold Purple Top SEE NOTE Hold Blue Top SEE NOTE Anion Gap Estim Creat Clear Calc Estimated GFR POC Glucose Random Glucose Lactic Acid 3.3 H* Lactic Acid F/U @ 2Hr Lactic Acid F/U @ 4Hr Calcium Magnesium Iron TIBC % Saturation Unsat Iron Binding Total Bilirubin Direct Bilirubin AST ALT Alkaline Phosphatase Troponin I High Sens < 2.7 Total Protein Albumin Urine Color Yellow Urine Appearance Cloudy Urine pH 7.0 Ur Specific [place] 1.020 Urine Protein Trace Urine Glucose (UA) Negative Urine Ketones Negative Urine Blood Negative Urine Nitrite Negative Ur Leukocyte Esterase Large (3+) H Urine RBC 0-2 Urine WBC 6-10 Ur Squamous Epith Cells 0-2 Urine Bacteria None Seen Hyaline Casts 0-2 Urine Yeast Present Stool Occult Blood Urine Opiates Screen POSITIVE H Ur Buprenorphine Scrn Not Detected Ur Oxycodone Screen Positive H Urine Methadone Screen Not Detected Urine Fentanyl Screen Not Detected Ur Barbiturates Screen Not Detected Ur Phencyclidine Scrn Not Detected Ur Amphetamines Screen Not Detected U Benzodiazepines Scrn Not Detected Urine Cocaine Screen Not Detected U Marijuana (THC) Screen POSITIVE H Ethyl Alcohol Blood Type A Negative Antibody Screen NEGATIVE Crossmatch See Detail 03/30/24 03/30/24 03/30/24 18:26 20:07 21:43 MCV MCH MCHC RDW Plt Count MPV Immature Gran % (Auto) Neut % (Auto) Lymph % (Auto) [place] % (Auto) Eos % (Auto) Baso % (Auto) Lymph # (Auto) [place] # (Auto) Eos # (Auto) Baso # (Auto) Abs Immat Gran (auto) Absolute Neuts (auto) Absolute Nucleated RBC Nucleated RBC % (auto) Hold Purple Top Hold Blue Top Anion Gap 13 Estim Creat Clear Calc 94.4 Estimated GFR > 60 POC Glucose Random Glucose 98 Lactic Acid Lactic Acid F/U @ 2Hr 2.9 H* Lactic Acid F/U @ 4Hr Calcium 7.6 L Magnesium 1.5 L Iron TIBC % Saturation Unsat Iron Binding Total Bilirubin 0.3 Direct Bilirubin 0.1 AST 32 ALT 13 Alkaline Phosphatase 115 Troponin I High Sens Total Protein 4.2 L Albumin 1.6 L Urine Color Urine Appearance Urine pH Ur Specific [place] Urine Protein Urine Glucose (UA) Urine Ketones Urine Blood Urine Nitrite Ur Leukocyte Esterase Urine RBC Urine WBC Ur Squamous Epith Cells Urine Bacteria Hyaline Casts Urine Yeast Stool Occult Blood NEGATIVE Urine Opiates Screen Ur Buprenorphine Scrn Ur Oxycodone Screen Urine Methadone Screen Urine Fentanyl Screen Ur Barbiturates Screen Ur Phencyclidine Scrn Ur Amphetamines Screen U Benzodiazepines Scrn Urine Cocaine Screen U Marijuana (THC) Screen Ethyl Alcohol < 10 Blood Type Antibody Screen Crossmatch 03/30/24 03/31/24 03/31/24 22:50 01:42 02:49 MCV MCH MCHC RDW Plt Count MPV Immature Gran % (Auto) Neut % (Auto) Lymph % (Auto) [place] % (Auto) Eos % (Auto) Baso % (Auto) Lymph # (Auto) [place] # (Auto) Eos # (Auto) Baso # (Auto) Abs Immat Gran (auto) Absolute Neuts (auto) Absolute Nucleated RBC Nucleated RBC % (auto) Hold Purple Top Hold Blue Top Anion Gap Estim Creat Clear Calc Estimated GFR POC Glucose 48 L* 100 Random Glucose Lactic Acid Lactic Acid F/U @ 2Hr Lactic Acid F/U @ 4Hr 2.3 H* Calcium Magnesium Iron 105 TIBC 130 L % Saturation 81 H Unsat Iron Binding < 25 Total Bilirubin Direct Bilirubin AST ALT Alkaline Phosphatase Troponin I High Sens Total Protein Albumin Urine Color Urine Appearance Urine pH Ur Specific [place] Urine Protein Urine Glucose (UA) Urine Ketones Urine Blood Urine Nitrite Ur Leukocyte Esterase Urine RBC Urine WBC Ur Squamous Epith Cells Urine Bacteria Hyaline Casts Urine Yeast Stool Occult Blood Urine Opiates Screen Ur Buprenorphine Scrn Ur Oxycodone Screen Urine Methadone Screen Urine Fentanyl Screen Ur Barbiturates Screen Ur Phencyclidine Scrn Ur Amphetamines Screen U Benzodiazepines Scrn Urine Cocaine Screen U Marijuana (THC) Screen Ethyl Alcohol Blood Type Antibody Screen Crossmatch 03/31/24 02:55 MCV 91.1 D MCH 32.4 MCHC 35.6 RDW 16.9 H Plt Count 255 MPV 8.5 L Immature Gran % (Auto) 0.3 Neut % (Auto) 61.8 Lymph % (Auto) 26.7 [place] % (Auto) 9.6 Eos % (Auto) 1.1 Baso % (Auto) 0.5 Lymph # (Auto) 1.7 [place] # (Auto) 0.6 Eos # (Auto) 0.1 Baso # (Auto) 0.0 Abs Immat Gran (auto) 0.02 Absolute Neuts (auto) 4.0 Absolute Nucleated RBC 0.000 Nucleated RBC % (auto) 0.0 Hold Purple Top Hold Blue Top Anion Gap 10 L Estim Creat Clear Calc 98.1 Estimated GFR > 60 POC Glucose Random Glucose 99 Lactic Acid Lactic Acid F/U @ 2Hr Lactic Acid F/U @ 4Hr Calcium 8.0 L Magnesium Iron TIBC % Saturation Unsat Iron Binding Total Bilirubin Direct Bilirubin AST ALT Alkaline Phosphatase Troponin I High Sens Total Protein Albumin Urine Color Urine Appearance Urine pH Ur Specific [place] Urine Protein Urine Glucose (UA) Urine Ketones Urine Blood Urine Nitrite Ur Leukocyte Esterase Urine RBC Urine WBC Ur Squamous Epith Cells Urine Bacteria Hyaline Casts Urine Yeast Stool Occult Blood Urine Opiates Screen Ur Buprenorphine Scrn Ur Oxycodone Screen Urine Methadone Screen Urine Fentanyl Screen Ur Barbiturates Screen Ur Phencyclidine Scrn Ur Amphetamines Screen U Benzodiazepines Scrn Urine Cocaine Screen U Marijuana (THC) Screen Ethyl Alcohol Blood Type Antibody Screen Crossmatch <EVARISTO Colon Last Filed: 03/31/24 03:51> Assessment and Plan (1) Acute metabolic encephalopathy due to hypoglycemia: Status: Acute <EVARISTO Colon Last Filed: 03/31/24 03:51> (2) Normocytic anemia: Status: Acute <EVARISTO Colon Last Filed: 03/31/24 03:51> (3) Diarrhea: Status: Acute <Kemi London PA-C - Last Filed: 03/31/24 03:51> (4) Lactic acidosis: Status: Acute <Kemi London PA-C - Last Filed: 03/31/24 03:51> (5) Wound of skin: Status: Acute <Kemi London PA-C - Last Filed: 03/31/24 03:51> (6) Hypomagnesemia: Status: Acute <EVARISTO Colon Last Filed: 03/31/24 03:51> Patient is a 63-year-old male with a past medical history significant for HTN, T2DM and history CVA, resides at [facility] and was brought to the ED via EMS due to hypoglycemia and altered mental status. Workup in ED significant for normocytic anemia, and patient received 2 units PRBC. Acute metabolic encephalopathy secondary to hypoglycemia improved however returned therefore patient will be admitted. Acute metabolic encephalopathy secondary to hypoglycemia, unknown source, insulin versus infection - initially patient improved while in the ED and was being monitored and hypoglycemia returned to 48 - pt now on D5NS - monitor POC Q1H - check AM coritisol - chest x-ray with possible consolidation left lower lung, patient without fever, cough or leukocytosis, unlikely pneumonia - stool testing: c diff and GI panel - monitor CBC and BMP Lactic acidosis - no sepsis - likely secondary to hypoglycemia Normocytic anemia - iron level normal, TIBC low, iron saturation increased - fecal occult blood negative - patient given 2 units PRBC with improvement of hemoglobin from 7.2 to 11.6 - monitor CBC - outpatient follow-up Hypomagnesemia - secondary to GI losses - Mag repleted - stool testing as above Coccyx wound - wound care consult HTN - continue home meds when appropriate T2DM - diabetic diet - monitor POC q.1h as above - add sliding scale insulin when appropriate DNR/DNI VTE prophylaxis: Pneumoboots as patient is anemic and received blood transfusion Patient with acute metabolic encephalopathy secondary to hypoglycemia with unknown source, complicated by normocytic anemia requiring blood transfusion, requiring admission for at least 2 midnights stay for further monitoring and workup. <Kemi London PA-C - Last Filed: 03/31/24 03:51> Patient is a 63-year-old male with a past medical history significant for HTN, T2DM and history CVA, resides at [facility] and was brought to the ED via EMS due to hypoglycemia and altered mental status. Workup in ED significant for normocytic anemia, and patient received 2 units PRBC. Acute metabolic encephalopathy secondary to hypoglycemia improved however returned therefore patient will be admitted. Acute metabolic encephalopathy secondary to hypoglycemia, unknown source, insulin versus infection - initially patient improved while in the ED and was being monitored and hypoglycemia returned to 48 - pt now on D5NS - monitor POC Q1H - check AM coritisol - chest x-ray with possible consolidation left lower lung, patient without fever, cough or leukocytosis, unlikely pneumonia - stool testing: c diff and GI panel - monitor CBC and BMP Lactic acidosis - no sepsis - likely secondary to hypoglycemia Normocytic anemia - iron level normal, TIBC low, iron saturation increased - fecal occult blood negative - patient given 2 units PRBC with improvement of hemoglobin from 7.2 to 11.6 - monitor CBC - outpatient follow-up Hypomagnesemia - secondary to GI losses - Mag repleted - stool testing as above Coccyx wound - wound care consult HTN - continue home meds when appropriate T2DM - diabetic diet - monitor POC q.1h as above - add sliding scale insulin when appropriate DNR/DNI VTE prophylaxis: lovenox Patient with acute metabolic encephalopathy secondary to hypoglycemia with unknown source, complicated by normocytic anemia requiring blood transfusion, requiring admission for at least 2 midnights stay for further monitoring and workup. <Godfrey Jaeger MD - Last Filed: 03/31/24 03:56> Quality Stroke Does the patient have a stroke diagnosis?: No <Kemi London PA-C - Last Filed: 03/31/24 03:51> VTE Prior VTE?: No <Kemi London PA-C - Last Filed: 03/31/24 03:51> VTE Risk Level:: Medical - moderate - high <Kemi London PA-C - Last Filed: 03/31/24 03:51> VTE Device Contraindication: Treatment Not Indicated <Kemi London PA-C - Last Filed: 03/31/24 03:51> VTE Drug Contraindication: N/A - Med Ordered <Kemi London PA-C - Last Filed: 03/31/24 03:51>
[2024-03-31 04:53] LABS: Glucose, Whole Blood 128 mg/dL (60-115)
[2024-03-31 05:46] VITALS: BP 140/84; PULSE 63; RESP 17; TEMP 36.6; O2SAT 100
[2024-03-31 05:51] LABS: Glucose, Whole Blood 117 mg/dL (60-115)
--- NOTE | 2024-03-31 06:15 | PC.NURSE ---
pharmacy was called to notify that patient current med list is in ED chart from [facility]. 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
[2024-03-31 06:28] LABS: Cortisol Random 9.1 ug/dL
--- NOTE | 2024-03-31 07:47 | PHA.MEDREC ---
Pharmacy Consult ? Medication Reconciliation Pharmacy has completed the medication reconciliation. Utilized list from [facility]
[2024-03-31 08:36] LABS: Glucose, Whole Blood 153 mg/dL (60-115)
[2024-03-31 08:38] VITALS: BP 140/84
[2024-03-31] MEDS: lisinopriL 2.5 MG TABLET PO (08:38)
[2024-03-31] MEDS: Gabapentin 600 MG TABLET PO ×3 (08:39→20:26)
[2024-03-31] MEDS: Multivitamin TABLET 1 TAB PO (08:39)
[2024-03-31] MEDS: Thiamine HCL 100 MG TABLET PO (08:39)
[2024-03-31] MEDS: Apixaban 5 MG TABLET PO ×2 (08:39→20:26)
[2024-03-31] MEDS: Folic Acid 1 MG TABLET PO (08:39)
[2024-03-31] MEDS: DULoxetine HCl 60 MG CAPSULE.DR PO (08:39)
[2024-03-31] MEDS: Tamsulosin HCL 0.4 MG CAPSULE PO ×2 (08:39→20:26)
[2024-03-31] MEDS: oxyCODONE HCl Immed Release 5 MG TABLET PO ×2 (08:39→15:11)
[2024-03-31 08:41] LABS: Estimated Average Glucose 143 mg/dL; Hemoglobin A1C 148.3859 umol/L; Hemoglobin A1c % 6.6 % (<6.0); Total Hemoglobin (HGBA1C) 3083.1928 umol/L
[2024-03-31 10:12] LABS: Glucose, Whole Blood 156 mg/dL (60-115)
--- NOTE | 2024-03-31 10:54 | PC.NURSE ---
PT arrived from ED. A&Ox Person and Date, States he was at [facility]. Lungs clear, weak legs bilaterally, no chest pain, States he has [employer] at time. F/C with clear yellow urine. POC to be done q2 hours per med for the first 4-6 hours. Stage II on coccyx with foam dressing. Call [facility].
[2024-03-31 11:00] VITALS: BP 141/72; PULSE 52; RESP 18; TEMP 36.6; O2SAT 97
[2024-03-31 11:00] LABS: Glucose, Whole Blood 151 mg/dL (60-115)
[2024-03-31 11:08] VITALS: BMI 24.4
--- NOTE | 2024-03-31 11:08 | PM.EVENT ---
Event Note Date of Service: 03/31/24 Event Note: Seen and evaluated this morning denies any cough, dyspnea fever or chills Glu stable in 100s since last night HbA1c kf 6.6 DC Insulin Start Metformin only at discharge if no contra monitor . Time Spent With Patient Time: Total time managing care of this patient today ____ minutes.
[2024-03-31 12:14] LABS: Glucose, Whole Blood 155 mg/dL (60-115)
--- NOTE | 2024-03-31 13:46 | HO.WOUND ---
Wound Consult: Initial 63yr old?male admitted to [facility] on 03/31/23 - See progress notes and H&P for detailed history.? Wound consult placed for Coccyx wound POA.? Chart review and Photo review below. Sacrum Etiology: ??Unstageable Pressure Injury Present on Admission Wound Bed: 4 lesions noted with adherent yellow slough obscuring wound bed full thickness tissue loss Drainage / Odor: unknown at this time Edges: ? irregular Donna wound: ? MASD - dark hyperpigmented tissue No Induration, Fluctuance or Warmth noted Goals of Treatment: ? Off Load Pressure and Triad to protect from friction and allow for autolytic debridement Recommendations: 1. Turn and Reposition every 2 hours and as needed for patient comfort.? Use pillows or wedges to support off loading positions. 2. Off Load all bony prominences with use of pillows and heel boots if needed.? Apply Preventative foams where needed. ? 3. Monitor for incontinence and moisture control, use barrier creams when needed for prevention and treatment. 4. Provide adequate and supplemental nutrition.? 5. Order low air loss mattress. 6. When applicable maintain blood glucose levels per Providers order. 7. Sacrum - Off Load Pressure with Q2hr turns? - Cleanse with PH balance spray or wipes, pat dry. ?Apply thin layer of Triad to wound bed. Do not remove all of paste between applications as this may cause further skin damage.? Cover with foam dressing to aid in off loading and protection from friction. Change every 3 days and PRN. Re-consult wound care Nurse for wound deterioration or wound changes.
--- NOTE | 2024-03-31 14:29 | P.CDIM_ITS ---
PROVIDER RESPONSE TEXT: To clarify, the appropriate diagnosis supported by the clinical indicators: Acute QUERY TEXT: PHYSICIAN'S DOCUMENTATION REQUEST Date of Query: 03/31/2024 11:20 AM EST Patient Name: Conner Templeton Admit Date: 03/31/2024 Dear Martinez Martins MD, A review of the medical record indicates additional documentation may be needed. Please review below and update the documentation accordingly. Clinical Indicators: H&P: Lactic acidosis no sepsis Likely secondary to hypoglycemia. LA 3.3 Clarify which of the following accurately represents the acuity of the Lactic acidosis: Possible options might include: Acute Acute on chronic Chronic stable condition Other (explain) Clinically unable to determine (explain) Thank you, Belén Pickett, CCS, CDIS Use of terms such as suspected, likely, concern for, or probable (associated with a specific diagnosi s that is being evaluated, monitored, or treated as if it exists) are acceptable and can be coded in the inpatient se tting, when documented at the time of discharge. Please use your independent medical judgment in providing your response. THIS QUERY IS PART OF THE PERMANENT MEDICAL RECORD
[2024-03-31 15:22] VITALS: BP 138/79; PULSE 78; RESP 18; TEMP 36.2; O2SAT 98
[2024-03-31 15:46] LABS: Glucose, Whole Blood 227 mg/dL (60-115)
[2024-03-31 20:00] VITALS: BP 131/78; PULSE 60; RESP 16; TEMP 36.2; O2SAT 99
[2024-03-31 20:15] LABS: Glucose, Whole Blood 193 mg/dL (60-115)
[2024-03-31] MEDS: Atorvastatin Calcium 80 MG TABLET PO (20:26)
[2024-03-31] MEDS: 0.9 % Sodium Chloride Flush 3 ML SYRINGE IVFLUSH (20:26)
[2024-03-31 23:34] LABS: Glucose, Whole Blood 150 mg/dL (60-115)
[2024-04-01 03:18] VITALS: BP 110/68; PULSE 84; RESP 18; TEMP 36.6; O2SAT 99
[2024-04-01 03:24] LABS: Glucose, Whole Blood 120 mg/dL (60-115)
[2024-04-01] MEDS: oxyCODONE HCl Immed Release 5 MG TABLET PO ×2 (05:22→11:28)
[2024-04-01 07:22] VITALS: BP 121/72; PULSE 70; RESP 14; TEMP 36.8; O2SAT 97
[2024-04-01 07:29] LABS: Glucose, Whole Blood 107 mg/dL (60-115)
[2024-04-01 07:46] LABS: Anion Gap 10 (12-20); Blood Urea Nitrogen 14 mg/dL (9-16); Calcium 7.2 mg/dL (8.4-10.2); Carbon Dioxide 24 mmol/L (22-29); Chloride 108 mmol/L (96-108); Creatinine Clr Calc Pharmacy 124.8; Estimated Glomerular Filt Rate > 60; Glucose Random 120 mg/dL (60-115); Potassium 4.8 mmol/L (3.3-5.1); Sodium 137 mmol/L (135-145)
[2024-04-01] MEDS: Gabapentin 600 MG TABLET PO (09:05)
[2024-04-01] MEDS: lisinopriL 2.5 MG TABLET PO (09:05)
[2024-04-01] MEDS: Multivitamin TABLET 1 TAB PO (09:05)
[2024-04-01] MEDS: Tamsulosin HCL 0.4 MG CAPSULE PO (09:06)
[2024-04-01] MEDS: Finasteride 5 MG TABLET PO (09:06)
[2024-04-01] MEDS: DULoxetine HCl 60 MG CAPSULE.DR PO (09:06)
[2024-04-01] MEDS: Apixaban 5 MG TABLET PO (09:06)
[2024-04-01] MEDS: Folic Acid 1 MG TABLET PO (09:06)
[2024-04-01] MEDS: Thiamine HCL 100 MG TABLET PO (09:06)
[2024-04-01 10:54] VITALS: BMI 24.4
--- NOTE | 2024-04-01 11:01 | MHC.CLN ---
NUTRITION DIET=DIABETIC 2000 KCAL. INCREASED NUTRITION NEEDS DUE TO UNSTAGEABLE AREA TO SACRUM. ADDING ENSURE MAX BID (300 KCALS, 60 G PROTEIN) TO PROMOTE WOUND HEALING. FOLLOW FOR PO INTAKE AND SKIN INTEGRITY. SEE CLINICAL NUTRITION ASSESSMENT 04/01/24.
--- NOTE | 2024-04-01 11:32 | PM.DS ---
DS: Providers Provider Date of Service: 04/01/24 Date of admission: 03/31/24 01:59 Date of discharge: 04/01/24 Primary care physician: Unknown Physician Consults: 03/31/24 03:31 Consult to Wound Care Routine Reason for consultation: Coccyx Pressure Injury Has provider been notified: Yes DS: Diagnosis Discharge Diagnosis (1) Acute metabolic encephalopathy due to hypoglycemia: Status: Acute (2) Normocytic anemia: Status: Acute (3) Diarrhea: Status: Acute (4) Lactic acidosis: Status: Acute (5) Wound of skin: Status: Acute (6) Hypomagnesemia: Status: Acute (7) Hypoglycemia: Status: Acute (8) Acute hypotension: Status: Acute (9) Pneumonia: Status: Acute DS: Summary Hospital Course Hospital Course: Admission note HPI Patient is a 63-year-old male with a past medical history significant for HTN, T2DM and history CVA, resides at [facility] and was brought to the ED via EMS due to hypoglycemia and altered mental status. Upon arrival his point of care was 37 and he was hypotensive and lethargic. The patient reports he has not gotten any of his insulin today due to hypoglycemia. Recently did have a GI illness with significant diarrhea which he reports he was treated with antibiotics for, we do not have record of this. He denies any headache, chest pain, shortness breath, cough, fever chills, abdominal pain or urinary symptoms including dysuria, frequency or urgency. Hospital course The patient was treated for the following: Acute metabolic encephalopathy secondary to hypoglycemia related to insulin usage and likely Pneumonia infection BLood sugar stabilized after IV fluids with dextrose and holding insulin. No recurrent episodes 24 hours after stopping the fluids as he tolerated diet well. Cortisol level within normal. He was started on Levofloxacin as antibiotics for possible pneumonia as reported on CXR with likely left lower lobe infiltrates. Blood cultures remains negative at time of discharge. To discontinue Insulin as HbA1c of 6.4. Start Metformin bid for now and monitor blood sugar as outpatient. He was found to have Lactic acidosis likely related to dehydration. responded well to IV fluids. Noted to have Normocytic anemia with iron level normal, TIBC low, iron saturation increased and fecal occult blood negative. given 2 units PRBC with improvement of hemoglobin from 7.2 to 11.6. To repeat CBC as outpatient and follow with PCP if any GI work up needed. start Omeprazole as well. Noted to have Hypomagnesemia secondary to GI losses. Mg repleted with good response. Diarrhea resolved. C.Diff negative. Likely associated with pneumonia. Coccyx wound evaluated by wound care nurse whose recommendations in discharge instructions. Discharge plan Continue Levaquin for 6 more days for pneumonia Start Metformin for diabetes control Discontinue Insulin Wound care for sacral wounds Increase physical activity as tolerated The patient made quicker than expected recovery and will not need 2 overnight hospital stay. Time Attestation Discharge Coordination Time (in mins): 39 Quality: Safe Use of Opioids Does Pt have an Active Cancer Diagnosis on the Problem List?: No Quality: Stroke Does the patient have a stroke diagnosis?: No Physical Exam Vital Signs: Vital Signs: Last Vital Signs Temp 98.3 F 04/01/24 07:22 Pulse 70 04/01/24 07:22 Resp 14 04/01/24 07:22 BP 121/72 04/01/24 07:22 Pulse Ox 97 04/01/24 07:22 O2 Del Method Room Air 04/01/24 07:22 BMI result Body Mass Index 24.4 Const: Other: Constitutional : Awake, interactive, not in distress Neck : Normal inspection, Supple Cardiovascular : RRR, no JVP, no lower extremity edema Respiratory : good bilateral air entry, no crackles, wheezes or rhonchi Gastrointestinal: soft, lax, Normal bowel sounds, Non tender Skin : Warm, Dry, unstagable coccyx wound Neurological : Alert & oriented to self and place, No focal deficit DS: Data Data Completed and Pending Labs on day of discharge: Laboratory Results - last 24 hr 03/31/24 03/31/24 03/31/24 12:08 15:41 20:09 Sodium Potassium Chloride Carbon Dioxide Anion Gap BUN Creatinine Estim Creat Clear Calc Estimated GFR POC Glucose 155 H 227 H 193 H Random Glucose Calcium 03/31/24 04/01/24 04/01/24 23:13 03:20 06:23 Sodium 137 Potassium 4.8 Chloride 108 Carbon Dioxide 24 Anion Gap 10 L BUN 14 Creatinine 0.59 Estim Creat Clear Calc 124.8 Estimated GFR > 60 POC Glucose 150 H 120 H Random Glucose 120 H Calcium 7.2 L D 04/01/24 07:25 Sodium Potassium Chloride Carbon Dioxide Anion Gap BUN Creatinine Estim Creat Clear Calc Estimated GFR POC Glucose 107 Random Glucose Calcium Preliminary micro results at discharge 03/30/24 17:37 Blood Culture - Preliminary Blood - Venous No growth after 24 hours. 03/30/24 17:37 Blood Culture - Preliminary Blood - Venous No growth after 24 hours. 03/30/24 18:13 Urine Culture - Preliminary Urine Catheterized - Workman Catheter Culture too young to evaluate. Imaging Chest x-ray: Radiologist's impression: IMPRESSION: There is a focus of consolidation at the base of the left lung. This document has been electronically signed by: Nneka Ortiz MD on 03/30/2024 18:29:34 Discharge Plan Discharge Anticipated Discharge Date/Time: 04/01/24 11:24 Patient Disposition: er [facility] Discharge Diagnosis: Hypoglycemia Diarrhea Referrals: Jose Mehta [place] [Outside] - 1 Week Physician,Olivia J [Physician] - 1 Week Discharge Medications: New metformin 500 mg tablet 500 mg PO BID Qty: 60 0RF levofloxacin 750 mg Tablet 750 mg PO Q24H Qty: 6 0RF omeprazole 20 mg capsule,delayed release(DR/EC) 20 mg PO DAILY Qty: 90 0RF Continued tamsulosin 0.4 mg capsule 0.4 mg PO BID finasteride 5 mg tablet 5 mg PO DAILY duloxetine 60 mg capsule,delayed release(DR/EC) 60 mg PO DAILY multivitamin Tablet 1 tab PO DAILY carisoprodol [Soma] 350 mg Tablet 350 mg PO QID PRN (Reason: Muscle Spasm) atorvastatin 80 mg Tablet 80 mg PO BEDTIME acetaminophen 325 mg Tablet 650 mg PO Q4H PRN (Reason: Fever Or Pain) gabapentin 600 mg Tablet 600 mg PO TID thiamine HCl (vitamin B1) 100 mg Tablet 100 mg PO DAILY folic acid 1 mg Tablet 1 mg PO DAILY lisinopril 2.5 mg Tablet 2.5 mg PO DAILY oxycodone 5 mg Tablet 5 mg PO Q6H PRN (Reason: Breakthrough Pain, Moderate) Creon 6,000-19,000 -30,000 unit Capsule,Delayed Release(Dr/Ec) 1 cap PO QIDWMHS apixaban 5 mg Tablet 5 mg PO BID Discontinued insulin lispro 100 unit/mL solution 0 sliding scale dose subcut TID insulin lispro [Humalog Pen] 100 unit/mL Insulin Pen 0 sliding scale dose SUBCUT USEASDIRECTD Rx Instructions: 180 - 209 = 3 UNITS 210 - 239 = 5 UNITS 240 - 239 = 7 UNITS 270 - 299 = 8 UNITS IF GREATER THAN 300 CALL No Action levofloxacin 500 mg tablet 500 mg PO DAILY Qty: 4 0RF Discharge Orders: Discharge Order (Routine); Ordered 04/01/24 Ordered By: Martinez Martins Diet: Advance to usual diet Activity on Discharge: As tolerated Stand Alone Forms: Patient Portal Discharge page Print Language: Australian Other Ambulatory Orders: Complete Blood Count Auto Diff (Routine) Timeframe: 1 Week Facility: [facility] - Location: Laboratory Ordered By: Martinez Martins Activity Restrictions/Additional Instructions: Wound care Recommendations: 1. Turn and Reposition every 2 hours and as needed for patient comfort.? Use pillows or wedges to support off loading positions. 2. Off Load all bony prominences with use of pillows and heel boots if needed.? Apply Preventative foams where needed. ? 3. Monitor for incontinence and moisture control, use barrier creams when needed for prevention and treatment. 4. Provide adequate and supplemental nutrition.? 5. Order low air loss mattress. 6. When applicable maintain blood glucose levels per Providers order. 7. Sacrum - Off Load Pressure with Q2hr turns? - Cleanse with PH balance spray or wipes, pat dry. ?Apply thin layer of Triad to wound bed. Do not remove all of paste between applications as this may cause further skin damage.? Cover with foam dressing to aid in off loading and protection from friction. Change every 3 days and PRN. Care Plan Goals: Continue Levaquin for 6 more days for pneumonia Start Metformin for diabetes control Discontinue Insulin Wound care for sacral wounds Increase physical activity as tolerated Health Concerns: Pneumonia Low blood sugar Plan of Treatment: Stop insulin Wound care Antibiotic Assessment: as above Discharge Date/Time: 04/01/24 12:29
[2024-04-01] MEDS: levoFLOXacin 750 MG TABLET PO (11:34)
[2024-04-01 11:35] LABS: Glucose, Whole Blood 188 mg/dL (60-115)
--- NOTE | 2024-04-01 11:51 | MHC.CM.PN ---
IMM 04/01/24 Patient from [facility] for STR. He will return to [facility] via BLS. 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
--- NOTE | 2024-04-01 12:22 | PC.NURSE ---
11:30 POC 191 sliding scale 2u given per MD - MD held scheduled 5U
== END 2024-04-01 12:29 | disposition skilled nursing facility (03) | DRG 637 ==
LOC: HO.ED 03-31 02:02 → HO.EDOVER 03-31 02:12 → HO.S3 03-31 09:31
PROVIDERS: Admitting Provider Student in an Organized Health Care Education/Training Program; Emergency Provider Emergency Medicine; PCP Family Medicine; Visit Provider Student in an Organized Health Care Education/Training Program
DX: E11.649 Type 2 diabetes mellitus with hypoglycemia without coma (principal); G93.41 Metabolic encephalopathy; J18.9 Pneumonia, unspecified organism; E87.21 Acute metabolic acidosis; D64.9 Anemia, unspecified; E83.42 Hypomagnesemia; Z66 Do not resuscitate; L89.150 Pressure ulcer of sacral region, unstageable; Z86.73 Personal history of transient ischemic attack (TIA), and cerebral infarction without residual deficits; Z87.891 Personal history of nicotine dependence; Z79.4 Long term (current) use of insulin; Z79.01 Long term (current) use of anticoagulants; Z79.899 Other long term (current) drug therapy
CPT/HCPCS: 36415; 71045; 80048; 80076; 80307; 81001; 82272; 82533; 82947; 83036; 83540; 83605; 83735; 84484; 84681; 85025; 86850; 86900; 86901; 86923; 87040; 87086; 87088; 93005; 99285; J0696; J3475; J7120; P9016

== ENCOUNTER → 2024-03-30 17:30 | Outpatient (BNV) | payer MEDICARE, SELFPAY | PROVIDERS: Admitting Provider Student in an Organized Health Care Education/Training Program; Emergency Provider Emergency Medicine; Visit Provider Internal Medicine | DX: R94.31 Abnormal electrocardiogram [ECG] [EKG] (principal) | CPT/HCPCS: 93010 ==

== ENCOUNTER → 2024-03-30 18:07 | Outpatient (BNV) | payer MEDICARE, MEDICAID, SELFPAY | PROVIDERS: Emergency Provider Emergency Medicine; Visit Provider Radiology Diagnostic Radiology | DX: I95.9 Hypotension, unspecified (principal) | CPT/HCPCS: 71045 ==

== ENCOUNTER → 2024-03-31 01:59 | Outpatient (BNV) | payer MEDICARE, MEDICAID, SELFPAY | PROVIDERS: Admitting Provider Student in an Organized Health Care Education/Training Program; Emergency Provider Emergency Medicine; Visit Provider Physician Assistant | DX: G93.41 Metabolic encephalopathy (principal); E16.2 Hypoglycemia, unspecified; D64.9 Anemia, unspecified; R19.7 Diarrhea, unspecified; E87.20 Acidosis, unspecified; T14.8XXA Other injury of unspecified body region, initial encounter; E83.42 Hypomagnesemia | CPT/HCPCS: 99223; 99499 ==

== ENCOUNTER 2024-04-02 23:06 | Emergency (ER) | payer MEDICARE, MEDICAID, SELFPAY ==
[2024-04-02 23:29] VITALS: BP 90/61; BP 96/62; PULSE 84; PULSE 98; RESP 12; O2SAT 100; BMI 22.0
[2024-04-02 23:32] LABS: Glucose, Whole Blood 109 mg/dL (60-115)
[2024-04-02 23:37] VITALS: BP 90/61; PULSE 76; RESP 14; TEMP 36.6; O2SAT 99
[2024-04-03 00:32] LABS: MANUAL DIFF FLAG NO
[2024-04-03 00:36] LABS: Basophils Percent Auto 0.1 % (0-2); Eosinophils Percent Auto 0.1 % (0-4); Hematocrit 30.9 % (42.0-52.0); Hemoglobin 10.9 g/dl (14.0-18.0); Imm Gran Abs Auto 0.02 X10*3/uL (0.00-0.03); Imm Gran Pct Auto 0.3 % (0.0-0.4); Lymphocytes Absolute Auto 0.7 X10*3/uL (1.2-4.9); Lymphocytes Percent Auto 8.5 % (20-40); Mean Corpuscular HGB Conc 35.3 g/dl (31.0-36.0); Mean Corpuscular Hemoglobin 32.8 pg (27.0-33.0); Mean Corpuscular Volume 93.1 fL (80.0-98.0); Mean Platelet Volume 8.5 fL (9.4-12.4); Monocytes Absolute Auto 0.4 X10*3/uL (0.1-1.2); Monocytes Percent Auto 4.7 % (2-11); Neutrophils Absolute Auto 6.7 x10*3/uL (2.0-8.3); Neutrophils Percent Auto 86.3 % (45-73); Platelet Count 235 X10*3/uL (160-400); Red Blood Count 3.32 X10*6/uL (4.60-5.80); Red Cell Distribution Width 16.6 % (11.0-16.0); White Blood Count 7.7 X10*3/uL (4.8-10.8)
[2024-04-03 00:55] LABS: Appearance Urine Turbid; Color Urine Yellow; Glucose Urine UA Negative (Negative); Leukocyte Esterase Urine Large (3+) (Negative); Nitrite Urine Negative (Negative); PH 5.5 (5.0-9.0); UMIC TRIGGER UACC YES; Urine Blood Moderate (2+) (Negative); Urine Ketones Negative (Negative); Urine Protein 100 (2+) mg/dL (Neg-Trace)
[2024-04-03 00:58] LABS: Alanine Aminotransferase 8 U/L (0-40); Albumin Level 1.5 g/dL (3.5-5.0); Anion Gap 10 (12-20); Aspartate Amino Transferase 28 U/L (5-37); Bilirubin Total 0.3 mg/dL (0.0-1.0); Blood Urea Nitrogen 15 mg/dL (9-16); Calcium 7.2 mg/dL (8.4-10.2); Carbon Dioxide 24 mmol/L (22-29); Chloride 107 mmol/L (96-108); Estimated Glomerular Filt Rate > 60; Glucose Random 80 mg/dL (60-115); Potassium 4.3 mmol/L (3.3-5.1); Sodium 137 mmol/L (135-145); Total Protein 4.2 g/dL (6.5-8.0)
[2024-04-03 01:10] LABS: Bacteria Urine None Seen (None Seen); RBC Urine >20 /HPF (0-2); Squamous Epithelial Cell Urine 0-2 /HPF (0-2); UACC Culture Trigger YES; WBC Urine >50 /HPF (0-5)
[2024-04-03 01:29] LABS: Glucose, Whole Blood 62 mg/dL (60-115)
--- NOTE | 2024-04-03 01:32 | PC.NURSE ---
Blood glucose continues to gradually decline. Current POC 62. Chicken sandwich and orange juice provided to pt. Pt encouraged to eat.
[2024-04-03 02:16] LABS: Alkaline Phosphatase 119 U/L (39-117)
[2024-04-03 02:21] LABS: Glucose, Whole Blood 55 mg/dL (60-115)
[2024-04-03] MEDS: Dextrose 50 % 25 GM/50 ML SYRINGE IVPUSH (03:02)
--- NOTE | 2024-04-03 03:26 | ED.GENADULT ---
HPI - General Adult General Chief complaint: General Medical Stated complaint: ams hypoglycemia Time Seen by Provider: 04/03/24 02:19 Source: patient Limitations: no limitations History of Present Illness ED Provider: Melanie Workman PA-C HPI narrative: 63-year-old male with a history of BPH with chronic indwelling Workman, diabetes, hypertension, prior CVA, hypothyroidism, prior alcohol abuse, presents from [facility] with the hypoglycemia. When EMS arrived patient's point of care was 44 he was administered 12.5 g of D10, his blood sugar improved to 1 70s. His current point of care is 110. The patient was mentating at his baseline he is not altered. Patient states he takes his metformin as directed. Related Data Home Medications ?Medication ?Instructions ?Recorded ?Confirmed acetaminophen 325 mg tablet 650 mg PO Q4H PRN Fever Or Pain 03/31/24 03/31/24 apixaban 5 mg tablet 5 mg PO BID 03/31/24 03/31/24 atorvastatin 80 mg tablet 80 mg PO BEDTIME 03/31/24 03/31/24 carisoprodol 350 mg tablet (Soma) 350 mg PO QID PRN Muscle Spasm 03/31/24 03/31/24 duloxetine 60 mg capsule,delayed 60 mg PO DAILY 03/31/24 03/31/24 release finasteride 5 mg tablet 5 mg PO DAILY 03/31/24 03/31/24 folic acid 1 mg tablet 1 mg PO DAILY 03/31/24 03/31/24 gabapentin 600 mg tablet 600 mg PO TID 03/31/24 03/31/24 oeywyx-zxkjtrag-xuzbaru 1 cap PO QIDWMHS 03/31/24 03/31/24 6,000-19,000-30,000 unit capsule,delayed rel (Creon) lisinopril 2.5 mg tablet 2.5 mg PO DAILY 03/31/24 03/31/24 multivitamin 1 tab PO DAILY 03/31/24 03/31/24 oxycodone 5 mg tablet 5 mg PO Q6H PRN Breakthrough Pain, 03/31/24 03/31/24 Moderate tamsulosin 0.4 mg capsule 0.4 mg PO BID 03/31/24 03/31/24 thiamine HCl (vitamin B1) 100 mg 100 mg PO DAILY 03/31/24 03/31/24 tablet Previous Rx's ?Medication ?Instructions ?Recorded levofloxacin 750 mg tablet 750 mg PO Q24H #6 tabs 04/01/24 metformin 500 mg tablet 500 mg PO BID #60 tabs 04/01/24 omeprazole 20 mg capsule,delayed 20 mg PO DAILY #90 caps 04/01/24 release levofloxacin 500 mg tablet 500 mg PO DAILY #4 tabs 04/03/24 Allergies Allergy/AdvReac Type Severity Reaction Status Date / Time No Known Allergies Allergy Verified 04/02/24 23:34 Review of Systems Review of Systems: Yes all other systems are reviewed and are negative Constitutional: Constitutional: Denies fatigue and Denies fever(s) ENT: Denies dizziness Cardiovascular: Cardiovascular: Denies chest pain, Denies syncope, Denies palpitations and Denies dyspnea Respiratory: Respiratory: Denies cough and Denies dyspnea Gastrointestinal: Gastrointestinal: Denies abdominal pain, Denies nausea and Denies vomiting Neurologic: Denies dizziness and Denies syncope Endocrine: Endocrine: Denies fatigue and Denies palpitations [facility] Past Medical History Attestation statement: The following information was validated with the patient. Medical History Hypertension Diabetes type 2 CVA (cerebral vascular accident) Social History Social History Household Members: Other Household Members Other:: facility Housing: [facility] Do you presently have visiting nurse or other home services: Yes Patient Tobacco Use Status: Former Tobacco user Smoked in Last 30 Days: No Use of substances other than those prescribed or required for medical reasons: No Advance Directives: Yes Advance Directives Information Provided: Yes Advance Directives on File: No Advance Directives Date on File: 03/30/24 Do you have a plan to hurt others: No Plan Physical Exam ED Vital Signs: Vital Signs - 24 hr 04/02/24 23:29 04/02/24 23:37 Temperature 97.8 F Pulse Rate 84 76 Respiratory Rate 12 14 Blood Pressure 90/61 90/61 Pulse Oximetry 100 99 Oxygen Delivery Method Room Air Room Air BMI result Body Mass Index 22.0 Const Other: Alert Orientation/consciousness: patient oriented x3 Resp Effort & Inspection: normal respiratory effort Cardio Other: Normal peripheral perfusion Skin Other: Warm dry no rash Neuro General: patient oriented x3, no focal motor deficits and CN's II-XI intact bilaterally Psych Other: Somewhat hostile Course Reevaluation(s) Reevaluation #1: Patient received 12.5 g of D10 IV via EMS prior to arrival, on arrival he was 44. He was alert and awake here he initially was 170, he ate and drank here, his sugars began to drop, then he was given 25 g of dex, patient declines admission Medications Administered Discontinued Medications Generic Name Dose Route Start Last Admin Trade Name Osito PRN Reason Stop Dose Admin Dextrose 25 gm 04/03/24 02:21 04/03/24 03:02 Dextrose 25 % 2.5 Gm/10 Ml Syringe IVPUSH 04/03/24 02:22 Not Given ONCE ONE Dextrose 25 gm 04/03/24 03:00 04/03/24 03:02 Dextrose 50 % 25 Gm/50 Ml Syringe IVPUSH 04/03/24 03:01 25 gm ONCE ONE Administration Levofloxacin 750 mg 04/03/24 03:42 04/03/24 04:12 Levofloxacin 750 Mg Tablet PO 04/03/24 03:43 750 mg ONCE ONE Administration Medical Decision Making Medical Decision Making MDM Narrative: 63-year-old male with a history of BPH with chronic indwelling Workman, diabetes, hypertension, prior CVA, hypothyroidism, prior alcohol abuse, presents from [facility] with the hypoglycemia. When EMS arrived patient's point of care was 44 he was administered 12.5 g of D10, his blood sugar improved to 1 70s. His current point of care is 110. The patient was mentating at his baseline he is not altered. Patient states he takes his metformin as directed. Problem: Diabetes, prior alcohol abuse History: Per patient I have considered the following differential diagnoses: Failure to thrive, poor nutrition, alteration in hepatic gluconeogenesis, medication reaction Plan: Patient has been seen with similar presentation recently he was admitted and released. His episodes of hypoglycemia are of undetermined etiology at this point. Given his prior alcohol abuse, it could be dysfunction of his gluconeogenesis. The patient ate and drank here he has also received IV dextrose, his sugars remain labile but are stable. I offered admission the patient declines. He is alert and oriented he can make his own decisions. I have independently reviewed the following tests: Labs: No leukocytosis, stable anemia, no electrolyte abnormality, urine infected Lab Data 04/03/24 00:29 04/03/24 00:29 Labs: Lab Results 04/02/24 04/03/24 04/03/24 Range/Units 23:21 00:29 00:49 WBC 7.7 (4.8-10.8) X10*3/uL RBC 3.32 L (4.60-5.80) X10*6/uL Hgb 10.9 L (14.0-18.0) g/dl Hct 30.9 L (42.0-52.0) % MCV 93.1 (80.0-98.0) fL MCH 32.8 (27.0-33.0) pg MCHC 35.3 (31.0-36.0) g/dl RDW 16.6 H (11.0-16.0) % Plt Count 235 (160-400) X10*3/uL MPV 8.5 L (9.4-12.4) fL Immature Gran % (Auto) 0.3 (0.0-0.4) % Neut % (Auto) 86.3 H (45-73) % Lymph % (Auto) 8.5 L (20-40) % [place] % (Auto) 4.7 (2-11) % Eos % (Auto) 0.1 (0-4) % Baso % (Auto) 0.1 (0-2) % Lymph # (Auto) 0.7 L (1.2-4.9) X10*3/uL [place] # (Auto) 0.4 (0.1-1.2) X10*3/uL Eos # (Auto) 0.0 (0.0-0.4) X10*3/uL Baso # (Auto) 0.0 (0.0-0.2) X10*3/uL Abs Immat Gran (auto) 0.02 (0.00-0.03) X10*3/uL Absolute Neuts (auto) 6.7 (2.0-8.3) x10*3/uL Absolute Nucleated RBC 0.000 (0.0-0.012) X10*3/uL Nucleated RBC % (auto) 0.0 (0.0-0.2) /100WBC Sodium 137 (135-145) mmol/L Potassium 4.3 (3.3-5.1) mmol/L Chloride 107 (96-108) mmol/L Carbon Dioxide 24 (22-29) mmol/L Anion Gap 10 L (12-20) BUN 15 (9-16) mg/dL Creatinine 0.73 (0.5-1.4) mg/dL Estim Creat Clear Calc 99.0 Estimated GFR > 60 POC Glucose 109 (60-115) mg/dL Random Glucose 80 (60-115) mg/dL Calcium 7.2 L (8.4-10.2) mg/dL Total Bilirubin 0.3 (0.0-1.0) mg/dL AST 28 (5-37) U/L ALT 8 (0-40) U/L Alkaline Phosphatase 119 H (39-117) U/L Total Protein 4.2 L (6.5-8.0) g/dL Albumin 1.5 L (3.5-5.0) g/dL Urine Color Yellow Urine Appearance Turbid Urine pH 5.5 (5.0-9.0) Ur Specific [place] 1.020 (1.005-1.025) Urine Protein 100 (2+) H (Neg-Trace) mg/dL Urine Glucose (UA) Negative (Negative) mg/dL Urine Ketones Negative (Negative) mg/dL Urine Blood Moderate (2+) H (Negative) Urine Nitrite Negative (Negative) Ur Leukocyte Esterase Large (3+) H (Negative) Urine RBC >20 H (0-2) /HPF Urine WBC >50 H (0-5) /HPF Ur Squamous Epith Cells 0-2 (0-2) /HPF Urine Bacteria None Seen (None Seen) Hyaline Casts 3-5 (0-2) /LPF Urine Yeast Present 04/03/24 04/03/24 04/03/24 Range/Units 01: 02:17 03:36 WBC (4.8-10.8) X10*3/uL RBC (4.60-5.80) X10*6/uL Hgb (14.0-18.0) g/dl Hct (42.0-52.0) % MCV (80.0-98.0) fL MCH (27.0-33.0) pg MCHC (31.0-36.0) g/dl RDW (11.0-16.0) % Plt Count (160-400) X10*3/uL MPV (9.4-12.4) fL Immature Gran % (Auto) (0.0-0.4) % Neut % (Auto) (45-73) % Lymph % (Auto) (20-40) % [place] % (Auto) (2-11) % Eos % (Auto) (0-4) % Baso % (Auto) (0-2) % Lymph # (Auto) (1.2-4.9) X10*3/uL [place] # (Auto) (0.1-1.2) X10*3/uL Eos # (Auto) (0.0-0.4) X10*3/uL Baso # (Auto) (0.0-0.2) X10*3/uL Abs Immat Gran (auto) (0.00-0.03) X10*3/uL Absolute Neuts (auto) (2.0-8.3) x10*3/uL Absolute Nucleated RBC (0.0-0.012) X10*3/uL Nucleated RBC % (auto) (0.0-0.2) /100WBC Sodium (135-145) mmol/L Potassium (3.3-5.1) mmol/L Chloride (96-108) mmol/L Carbon Dioxide (22-29) mmol/L Anion Gap (12-20) BUN (9-16) mg/dL Creatinine (0.5-1.4) mg/dL Estim Creat Clear Calc Estimated GFR POC Glucose 62 55 L* 182 H (60-115) mg/dL Random Glucose (60-115) mg/dL Calcium (8.4-10.2) mg/dL Total Bilirubin (0.0-1.0) mg/dL AST (5-37) U/L ALT (0-40) U/L Alkaline Phosphatase (39-117) U/L Total Protein (6.5-8.0) g/dL Albumin (3.5-5.0) g/dL Urine Color Urine Appearance Urine pH (5.0-9.0) Ur Specific [place] (1.005-1.025) Urine Protein (Neg-Trace) mg/dL Urine Glucose (UA) (Negative) mg/dL Urine Ketones (Negative) mg/dL Urine Blood (Negative) Urine Nitrite (Negative) Ur Leukocyte Esterase (Negative) Urine RBC (0-2) /HPF Urine WBC (0-5) /HPF Ur Squamous Epith Cells (0-2) /HPF Urine Bacteria (None Seen) Hyaline Casts (0-2) /LPF Urine Yeast Discharge Plan Discharge Clinical Impression: Urinary tract infection associated with indwelling urethral catheter, Hypoglycemia Patient Disposition: Home, Self-Care Instructions: Hypoglycemia in a Person with Diabetes (ED), Catheter-associated Urinary Tract Infection (ED) Additional Instructions: You were noted to have low blood sugar here in the emergency department, you were given IV dextrose, this is a sugar. You were also found to have a urinary tract infection. It was recommended that you stay for hospital admission. You declined admission. Take the Levaquin as directed, this is an antibiotic. You received your 1st dose in the emergency department, you do not require anymore antibiotic until tomorrow morning at 5:00 a.m.,04/04/2024. You need to monitor your blood sugar at home. You need to follow up with your primary care provider on Thursday. Prescriptions: New levofloxacin 500 mg tablet 500 mg PO DAILY Qty: 4 0RF No Action tamsulosin 0.4 mg capsule 0.4 mg PO BID finasteride 5 mg tablet 5 mg PO DAILY duloxetine 60 mg capsule,delayed release(DR/EC) 60 mg PO DAILY multivitamin Tablet 1 tab PO DAILY carisoprodol [Soma] 350 mg Tablet 350 mg PO QID PRN (Reason: Muscle Spasm) atorvastatin 80 mg Tablet 80 mg PO BEDTIME acetaminophen 325 mg Tablet 650 mg PO Q4H PRN (Reason: Fever Or Pain) gabapentin 600 mg Tablet 600 mg PO TID thiamine HCl (vitamin B1) 100 mg Tablet 100 mg PO DAILY folic acid 1 mg Tablet 1 mg PO DAILY lisinopril 2.5 mg Tablet 2.5 mg PO DAILY oxycodone 5 mg Tablet 5 mg PO Q6H PRN (Reason: Breakthrough Pain, Moderate) Creon 6,000-19,000 -30,000 unit Capsule,Delayed Release(Dr/Ec) 1 cap PO QIDWMHS apixaban 5 mg Tablet 5 mg PO BID metformin 500 mg tablet 500 mg PO BID Qty: 60 0RF levofloxacin 750 mg Tablet 750 mg PO Q24H Qty: 6 0RF omeprazole 20 mg capsule,delayed release(DR/EC) 20 mg PO DAILY Qty: 90 0RF Interventions: ED Discharge Assessment Last Done: 04/03/24 12:09 Discharge Date/Time: 04/03/24 12:09 Print Language: Amharic
[2024-04-03 03:40] LABS: Glucose, Whole Blood 182 mg/dL (60-115)
[2024-04-03] MEDS: levoFLOXacin 750 MG TABLET PO (04:12)
[2024-04-03 04:33] VITALS: BP 139/81; PULSE 88; RESP 20; TEMP 36.3; O2SAT 98
[2024-04-03 08:36] VITALS: BP 125/83; PULSE 96; RESP 20; TEMP 36.8; O2SAT 100
[2024-04-03 12:09] VITALS: BP 125/83; PULSE 96; RESP 20; TEMP 36.8; O2SAT 100
== END 2024-04-03 12:09 | disposition home or self-care (01) ==
PROVIDERS: Emergency Provider Emergency Medicine; PCP Family Medicine
DX: E11.649 Type 2 diabetes mellitus with hypoglycemia without coma (principal); T83.518A Infection and inflammatory reaction due to other urinary catheter, initial encounter; N39.0 Urinary tract infection, site not specified; Y73.8 Miscellaneous gastroenterology and urology devices associated with adverse incidents, not elsewhere classified; Y92.129 Unspecified place in nursing home as the place of occurrence of the external cause; I10 Essential (primary) hypertension; Z86.73 Personal history of transient ischemic attack (TIA), and cerebral infarction without residual deficits; Z87.891 Personal history of nicotine dependence; Z96.0 Presence of urogenital implants; Z79.84 Long term (current) use of oral hypoglycemic drugs; Z79.01 Long term (current) use of anticoagulants; Z79.02 Long term (current) use of antithrombotics/antiplatelets; Z79.899 Other long term (current) drug therapy
CPT/HCPCS: 36415; 80053; 81001; 82947; 85025; 87086; 87088; 96374; 99284

== ENCOUNTER 2024-04-11 13:25 | Inpatient (IN) | payer MEDICARE, MEDICAID, SELFPAY ==
[2024-04-11] VITALS (14 sets, daily range): BP systolic 73–126; BP diastolic 40–74; PULSE 109–121; RESP 21–28; TEMP 35.5–36.5; O2SAT 91–95; BMI 21.6
--- NOTE | ~2024-04-11 | XR_ITS ---
EXAMINATION: XR CHEST 1 VIEW HISTORY: Mental status change COMPARISON: Comparison is made with the prior examination dated 03/30/2024. FINDINGS: Two AP portable views of the chest performed at 3:44 PM is submitted. There are low lung volumes. Again seen is elevation of the left hemidiaphragm. There are airspace opacities throughout both lungs which may represent pulmonary edema, diffuse pneumonia, or ARDS. There are small bilateral pleural effusions. No pneumothorax. The heart is normal in size. There is degenerative disc disease of the spine. XR/XR chest 1V IMPRESSION: Low lung volumes. Airspace opacities throughout both lungs which may represent pulmonary edema, diffuse pneumonia, or ARDS. Small bilateral pleural effusions. Electronically signed by: Jose Davila MD 04/11/2024 04:01 PM ALEXANDRA
--- NOTE | ~2024-04-11 | CT_ITS ---
CLINICAL HISTORY: GI bleed, CT abdomen and pelvis without contrast Comparison: None Findings: Please same-day CT chest report for discussion of lung bases. There are multiple stones within the gallbladder. Spleen, adrenal glands, liver and kidneys are unremarkable. No hydronephrosis. There is atrophy of the distal pancreas. Diffuse calcifications in the pancreatic head suggesting previous episodes of pancreatitis /Chronic pancreatitis. Stomach is distended with fluid and gas. Small bowel loops are normal caliber. There are few scattered diverticula of the colon without evidence of diverticulitis. Appendix not visualized. Body wall anasarca is present. Circumferential wall thickening of the distal rectum present. There is a small amount of fecal material within the rectum. There is a Workman catheter within the urinary bladder which appears diffusely thick-walled and decompressed. The bones are intact. IMPRESSION: 1. Circumferential wall thickening of the distal rectum, which could be due to proctitis. 2. Cholelithiasis. 3. Thick-walled decompressed urinary bladder which may be artifact versus cystitis. Workman catheter present. This document has been electronically signed by: Rick Palacios MD on 04/11/2024 20:21:08
--- NOTE | ~2024-04-11 | CT_ITS ---
CLINICAL HISTORY: ards CT chest without contrast Comparison: CR/SR - XR CHEST 1V - 04/11/24 15:44 EST CR - XR CHEST 1V - 03/30/24 18:09 EST Findings: Heart size is normal. Coronary artery calcifications are present. The visualized thyroid and mediastinum are unremarkable. There are geographic areas of ground-glass opacity in the right upper lobe, right middle lobe and lingula. There is slight central predominance of the areas of opacity. There is complete collapse of the left lower lobe and partial collapse of the right lower lobe. Moderate bilateral pleural effusions present, left greater than right, and no pneumothorax. Asymmetric elevation of the left hemidiaphragm present. The upper abdomen is unremarkable. Diffuse idiopathic skeletal hyperostosis of the thoracic spine. No acute fracture deformity. IMPRESSION: 1. Geographic areas of ground-glass opacity in the right upper, right middle and left upper lobes, increased or new in comparison to 03/30/2024 Differential includes infection, pulmonary edema, hypersensitivity pneumonitis or cryptogenic organizing pneumonia. 2. Moderate bilateral pleural effusions with partial collapse of the right lower lobe and complete collapse of the left lower lobe. This document has been electronically signed by: Rick Palacios MD on 04/11/2024 20:17:05
--- NOTE | ~2024-04-11 | CT_ITS ---
CLINICAL HISTORY: Mental status change CT head without contrast Comparison: None Findings: No intracranial hemorrhage, midline shift or mass effect. Focal low-attenuation, likely encephalomalacia in the right frontal lobe Mild cerebral atrophy. There is focal encephalomalacia in the left parietal occipital lobe near the falx, with collection of high attenuation material and punctate calcifications centrally in the area of encephalomalacia, series 6, image 105. The visualized paranasal sinuses and mastoid air cells are normal. The orbits are within normal limits. There is no acute fracture. IMPRESSION: 1. No definite acute intracranial findings. 2. Focal low-attenuation in the subcortical white matter of the right frontal lobe, likely encephalomalacia. 3. Focal encephalomalacia in the medial left parietal occipital lobe, with collection high attenuation material and punctate calcification centrally, which may be residua from previous intracranial hemorrhage. This document has been electronically signed by: Rick Palacios MD on 04/11/2024 20:28:35
--- NOTE | 2024-04-11 13:38 | ECG_ITS ---
Test Reason : AMS Blood Pressure : */* mmHG Vent. Rate : 124 BPM Atrial Rate : 124 BPM P-R Int : 130 ms QRS Dur : 76 ms QT Int : 306 ms P-R-T Axes : 25 -1 135 degrees QTcB Int : 439 ms Sinus tachycardia Low voltage QRS Nonspecific T wave abnormality Abnormal ECG When compared with ECG of 30-Mar-2024 17:47, Vent. rate has increased by 45 bpm Nonspecific T wave abnormality now evident in Inferior leads Referred By: Jada Sims Electronically Signed By: WILLIAN FRAIRE MD
[2024-04-11] MEDS: SODIUM CHLORIDE 2103 ML IV (14:50)
[2024-04-11] MEDS: Hum Prothrombin Cplx(PCC)4Fact 2,000 UNIT in Container,Empty 0 ML 480 UNIT IV (14:55)
[2024-04-11 15:03] LABS: MANUAL DIFF FLAG NO
[2024-04-11 15:05] LABS: Basophils Percent Auto 0.1 % (0-2); Eosinophils Percent Auto 0.1 % (0-4); Hemoglobin 7.2 g/dl (14.0-18.0); Imm Gran Abs Auto 0.08 X10*3/uL (0.00-0.03); Imm Gran Pct Auto 0.9 % (0.0-0.4); Lymphocytes Absolute Auto 1.1 X10*3/uL (1.2-4.9); Lymphocytes Percent Auto 12.4 % (20-40); Mean Corpuscular HGB Conc 35.6 g/dl (31.0-36.0); Mean Corpuscular Hemoglobin 32.1 pg (27.0-33.0); Mean Corpuscular Volume 90.2 fL (80.0-98.0); Mean Platelet Volume 9.6 fL (9.4-12.4); Monocytes Absolute Auto 0.4 X10*3/uL (0.1-1.2); Monocytes Percent Auto 4.1 % (2-11); Neutrophils Absolute Auto 7.4 x10*3/uL (2.0-8.3); Neutrophils Percent Auto 82.4 % (45-73); Platelet Count 179 X10*3/uL (160-400); Red Blood Count 2.24 X10*6/uL (4.60-5.80); Red Cell Distribution Width 16.7 % (11.0-16.0)
--- NOTE | 2024-04-11 15:10 | PC.NURSE ---
Central line placed by MD Sims with good blood return. Labs obtained and sent to lab. Fluids started, refer to MAR for sepsis fluids. BP remains hypotensive, 80s/40s. BP cycling q5 min to monitor. 16fr ku replaced with 16fr temp sensing ku- core temp 96.2, pt placed on bare hugger d/t hypothermia. Pt remains only responsive to painful stimuli. Cleaned up and repositioned with techs at bedside. Stage 2 pressure ulcer noted to sacrum, red/blanchable, no drainage noted. Pt remains on 5L Oxymask d/t low O2 levels. Desat into mid 80s on 4L, placed back on 5L, tachypneic 23-27rr. 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 Type and screen obtained by tech- plan for 2 unit PRBCs. Call ferrer within reach, all needs met at this time.
[2024-04-11 15:18] LABS: Prothrombin Time 70.4 SEC (10.9-12.4)
[2024-04-11 15:19] LABS: Hematocrit 20.2 % (42.0-52.0)
[2024-04-11 15:24] LABS: Ethanol < 10 mg/dL
[2024-04-11 15:26] LABS: B Type Natriuretic Peptide 80 pg/mL (<100)
[2024-04-11 15:29] LABS: Troponin-I High Sensitivity 15.9 ng/L (<3.5-35.0)
[2024-04-11 15:32] LABS: Lactic Acid 6.6 mmol/L (0.5-2.0)
[2024-04-11 15:38] LABS: Alanine Aminotransferase 153 U/L (0-40); Albumin Level 1.3 g/dL (3.5-5.0); Anion Gap 20 (12-20); Aspartate Amino Transferase 1032 U/L (5-37); Bilirubin Direct 0.8 mg/dL (0.0-0.5); Bilirubin Total 0.9 mg/dL (0.0-1.0); Blood Urea Nitrogen 24 mg/dL (9-16); Calcium 6.5 mg/dL (8.4-10.2); Carbon Dioxide 17 mmol/L (22-29); Chloride 110 mmol/L (96-108); Creatinine Clr Calc Pharmacy 36.5; Estimated Glomerular Filt Rate 34; Glucose Random 67 mg/dL (60-115); Lipase 10 U/L (8-78); Potassium 4.6 mmol/L (3.3-5.1); Sodium 142 mmol/L (135-145); Total Protein 3.2 g/dL (6.5-8.0)
--- NOTE | 2024-04-11 16:22 | ED.GENADULT ---
HPI - General Adult General Chief complaint: General Medical Stated complaint: ?ALTERED (UNREADABLE CMED REPORT) Time Seen by Provider: 04/11/24 13:37 Source: EMS and old records reviewed Mode of arrival: EMS Limitations: altered mental status History of Present Illness ED Provider: DR. Sims HPI narrative: 63-year-old male from [facility] came in for evaluation of change mental status, increased lethargy after eating a chocolate bar contain mushroom was given to the patient by his family. On arrival patient is non historian, ill looking, pale, found to be hypotensive initially and it tachycardic. Patient was moved to bed 20 for further evaluation. MOLST form is accompanied by the patient and he is DNR/DNI/no use of noninvasive ventilation. Related Data Home Medications ?Medication ?Instructions ?Recorded ?Confirmed acetaminophen 325 mg tablet 650 mg PO Q4H PRN Fever Or Pain 03/31/24 03/31/24 apixaban 5 mg tablet 5 mg PO BID 03/31/24 03/31/24 atorvastatin 80 mg tablet 80 mg PO BEDTIME 03/31/24 03/31/24 carisoprodol 350 mg tablet (Soma) 350 mg PO QID PRN Muscle Spasm 03/31/24 03/31/24 duloxetine 60 mg capsule,delayed 60 mg PO DAILY 03/31/24 03/31/24 release finasteride 5 mg tablet 5 mg PO DAILY 03/31/24 03/31/24 folic acid 1 mg tablet 1 mg PO DAILY 03/31/24 03/31/24 gabapentin 600 mg tablet 600 mg PO TID 03/31/24 03/31/24 yfctop-efjwfuey-yzwxzjy 1 cap PO QIDWMHS 03/31/24 03/31/24 6,000-19,000-30,000 unit capsule,delayed rel (Creon) lisinopril 2.5 mg tablet 2.5 mg PO DAILY 03/31/24 03/31/24 multivitamin 1 tab PO DAILY 03/31/24 03/31/24 oxycodone 5 mg tablet 5 mg PO Q6H PRN Breakthrough Pain, 03/31/24 03/31/24 Moderate tamsulosin 0.4 mg capsule 0.4 mg PO BID 03/31/24 03/31/24 thiamine HCl (vitamin B1) 100 mg 100 mg PO DAILY 03/31/24 03/31/24 tablet Previous Rx's ?Medication ?Instructions ?Recorded levofloxacin 750 mg tablet 750 mg PO Q24H #6 tabs 04/01/24 metformin 500 mg tablet 500 mg PO BID #60 tabs 04/01/24 omeprazole 20 mg capsule,delayed 20 mg PO DAILY #90 caps 04/01/24 release levofloxacin 500 mg tablet 500 mg PO DAILY #4 tabs 04/03/24 Allergies Allergy/AdvReac Type Severity Reaction Status Date / Time No Known Allergies Allergy Verified 04/11/24 14:15 Review of Systems Review of Systems: Yes Unobtainable due to mental status [facility] Past Medical History Medical History Normocytic anemia Wound of skin Anemia Hypertension Diabetes type 2 CVA (cerebral vascular accident) Social History Social History Household Members: Other Household Members Other:: facility Housing: [facility] Do you presently have visiting nurse or other home services: Yes Patient Tobacco Use Status: Former Tobacco user Advance Directives: Yes Advance Directives on File: Yes Advance Directives Date on File: 03/30/24 Physical Exam ED Vital Signs: Vital Signs - 24 hr 04/11/24 14:14 04/11/24 15:15 04/11/24 16:00 Temperature 95.9 F L Pulse Rate 121 H 116 H Respiratory Rate 28 H 21 H Blood Pressure 73/40 L 126/74 91/52 L Pulse Oximetry 92 91 L Oxygen Delivery Method Nasal Cannula Nasal Cannula Oxygen Flow Rate 2 2 04/11/24 16:35 Temperature 96.4 F L Pulse Rate 116 H Respiratory Rate 25 H Blood Pressure 94/58 L Pulse Oximetry Oxygen Delivery Method Oxygen Flow Rate BMI result Body Mass Index 21.6 Vital signs have been reviewed and appear to be correct. Blood pressure low. Heart rate elevated. Respiratory rate normal. Temperature normal. Oxygen saturation normal. Appearance: Pale, ill-looking appearance Head: Normal external exam. Normocephalic. Atraumatic. No Hewitt signs noted. No raccoon eyes noted Eyes: PERRLA. EOMI. Conjunctiva and sclera normal. Eyelids normal. ENT: TM's Normal. Pharynx normal. Uvula midline. Moist mucous membranes. No trismus noted. No drooling noted. No muffled voice noted. Neck: Normal inspection. Neck supple. FROM. No adenopathy. Thyroid Normal. No meningeal signs. No neck mass noted. CVS: Normal heart rate and rhythm. Heart sound normal. No murmurs noted. Pulses normal throughout. Respiratory: No respiratory distress. Painless inspiration. Breath sounds normal. No wheezes/rales/rhonchi noted. Chest nontender. No accessory muscle usage noted or decreased air movement noted. Abdomen: Soft and nontender. Bowel sounds normal in all 4 quadrants. No distention noted. No organomegaly noted. No visible injury noted. Rectal exam: Black stool positive for melena. Back: No CVA tenderness. Full range of motion noted. Skin: Skin warm and dry. Normal skin color. Normal skin turgor. No rashes/lesions/lacerations noted. Extremities: No lower extremity edema. Extremities exhibit normal range of motion. Extremities nontender. Neuro: Oriented X 3. Cranial nerve exam: II-XII are grossly intact No motor deficit. No sensory deficit. Reflexes normal. Course Reevaluation(s) Reevaluation #1: This is a critically ill patient who presented with hypotension, GI bleed, coagulopathy, ZURDO after eating emotional chocolate bar offered by his family. 1. For hypotension: IV fluids, 2 units of RBCs transfusion (blood transfusion consent was obtained by 2 doctors consen patient is unable to sign a consent himself). 2. Consider CT of the abdomen pelvis without contrast. 3. Case discussed with Dr. Manrique since the patient is DNR/DNI we can keep the patient in the ED. 4. Patient had a very difficult IV access due to hypotension multiple attempts to insert IV access was unsuccessful I was able to insert right femoral catheter. Pressure was applied and the bleed is control. Because coagulopathy patient is having right groin hematoma that we will keep monitoring. 5. 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 6. Lactic acidosis is secondary to severe anemia/hypotension. and hypoperfusion no infection is suspected at this point. 7. ZURDO likely secondary to hypotension and hypovolemia. Case signed out to Dr. Smart. Time: 16:26 Medications Administered Discontinued Medications Generic Name Dose Route Start Last Admin Trade Name Freq PRN Reason Stop Dose Admin Prothrombin Complex Concent ( 80 mls @ 480 mls/hr 04/11/24 14:47 04/11/24 14:55 Human) 2,000 unit/ IV IV 04/11/24 14:56 480 mls/hr Miscellaneous Supplies .Q10M ONE Administration Sodium Chloride 2,103 mls @ 2,103 mls/hr 04/11/24 14:47 04/11/24 14:50 Ns 30 ml/kg infuse over 1 hr (2103 ml) 04/11/24 15:46 2,103 mls/hr IV Administration .Q1H STA Medical Decision Making Differential Diagnosis Differential Diagnoses: The differential diagnosis associated with the presentation includes (GI bleed, hypotension, coagulopathy, hepatic toxicity, severe anemia, electrolyte derangement.) Admission/Observation Consideration of admission/observation: Escalation of care including admission/observation considered Consult Healthcare Provider Management of the patient was discussed with: Setter Off (Dr. Green) Lab Data MDM Lab Attestation statement: I reviewed the patient's lab results. 04/11/24 14:52 04/11/24 14:52 Labs: Lab Results 04/11/24 04/11/24 04/11/24 Range/Units 14:52 14:53 14:58 WBC 9.0 (4.8-10.8) X10*3/uL RBC 2.24 L D (4.60-5.80) X10*6/uL Hgb 7.2 L D (14.0-18.0) g/dl Hct 20.2 L* D (42.0-52.0) % MCV 90.2 (80.0-98.0) fL MCH 32.1 (27.0-33.0) pg MCHC 35.6 (31.0-36.0) g/dl RDW 16.7 H (11.0-16.0) % Plt Count 179 (160-400) X10*3/uL MPV 9.6 (9.4-12.4) fL Immature Gran % (Auto) 0.9 H (0.0-0.4) % Neut % (Auto) 82.4 H (45-73) % Lymph % (Auto) 12.4 L (20-40) % [place] % (Auto) 4.1 (2-11) % Eos % (Auto) 0.1 (0-4) % Baso % (Auto) 0.1 (0-2) % Lymph # (Auto) 1.1 L (1.2-4.9) X10*3/uL [place] # (Auto) 0.4 (0.1-1.2) X10*3/uL Eos # (Auto) 0.0 (0.0-0.4) X10*3/uL Baso # (Auto) 0.0 (0.0-0.2) X10*3/uL Abs Immat Gran (auto) 0.08 H (0.00-0.03) X10*3/uL Absolute Neuts (auto) 7.4 (2.0-8.3) x10*3/uL Absolute Nucleated RBC 0.000 (0.0-0.012) X10*3/uL Nucleated RBC % (auto) 0.0 (0.0-0.2) /100WBC PT 70.4 H (10.9-12.4) SEC INR 6.0 H* (0.9-1.1) Sodium 142 (135-145) mmol/L Potassium 4.6 (3.3-5.1) mmol/L Chloride 110 H (96-108) mmol/L Carbon Dioxide 17 L (22-29) mmol/L Anion Gap 20 (12-20) BUN 24 H (9-16) mg/dL Creatinine 2.00 H (0.5-1.4) mg/dL Estim Creat Clear Calc 36.5 Estimated GFR 34 Random Glucose 67 (60-115) mg/dL Lactic Acid 6.6 H* (0.5-2.0) mmol/L Calcium 6.5 L D (8.4-10.2) mg/dL Total Bilirubin 0.9 (0.0-1.0) mg/dL Direct Bilirubin 0.8 H (0.0-0.5) mg/dL AST 1032 H (5-37) U/L ALT 153 H (0-40) U/L Troponin I High Sens 15.9 D (<3.5-35.0) ng/L B-Natriuretic Peptide 80 (<100) pg/mL Total Protein 3.2 L (6.5-8.0) g/dL Albumin 1.3 L (3.5-5.0) g/dL Lipase 10 (8-78) U/L Salicylates < 5.0 L (15-30) mg/dL Acetaminophen 8 (<30) mcg/mL Ethyl Alcohol < 10 mg/dL Influenza Type A (PCR) NEGATIVE (Negative) Influenza Type B (PCR) NEGATIVE (Negative) RSV RNA Qual (PCR) NEGATIVE (Negative) SARS-CoV-2 RNA (RT-PCR) NEGATIVE (Negative) Blood Type A Negative Antibody Screen NEGATIVE Crossmatch See Detail Radiology Impression Discussion of test interpretation with radiology: I have reviewed the radiologist's reading. Critical Care Time Critical Care Time Critical Care Time: Yes Total Critical Care Time: 60 Attestation: The patient was critically ill with a high probability of imminent or life-threatening deterioration. I spent greater than 30 minutes of discontinuous time evaluating the patient, delivering critical care at the bedside, discussing evaluating data with consultants. Critical care time does not include time spent performing separately billable procedures or teaching. Time spent performing critical care was 60 minutes. Discharge Plan Discharge Clinical Impression: Coagulopathy, Melena, Hypotension, Severe anemia, Acidosis, lactic, ZURDO (acute kidney injury) Patient Disposition: Still a Patient Prescriptions: No Action tamsulosin 0.4 mg capsule 0.4 mg PO BID finasteride 5 mg tablet 5 mg PO DAILY duloxetine 60 mg capsule,delayed release(DR/EC) 60 mg PO DAILY multivitamin Tablet 1 tab PO DAILY carisoprodol [Soma] 350 mg Tablet 350 mg PO QID PRN (Reason: Muscle Spasm) atorvastatin 80 mg Tablet 80 mg PO BEDTIME acetaminophen 325 mg Tablet 650 mg PO Q4H PRN (Reason: Fever Or Pain) gabapentin 600 mg Tablet 600 mg PO TID thiamine HCl (vitamin B1) 100 mg Tablet 100 mg PO DAILY folic acid 1 mg Tablet 1 mg PO DAILY lisinopril 2.5 mg Tablet 2.5 mg PO DAILY oxycodone 5 mg Tablet 5 mg PO Q6H PRN (Reason: Breakthrough Pain, Moderate) Creon 6,000-19,000 -30,000 unit Capsule,Delayed Release(Dr/Ec) 1 cap PO QIDWMHS apixaban 5 mg Tablet 5 mg PO BID metformin 500 mg tablet 500 mg PO BID Qty: 60 0RF levofloxacin 750 mg Tablet 750 mg PO Q24H Qty: 6 0RF omeprazole 20 mg capsule,delayed release(DR/EC) 20 mg PO DAILY Qty: 90 0RF levofloxacin 500 mg tablet 500 mg PO DAILY Qty: 4 0RF Print Language: Bots[place]an
[2024-04-11 16:24] LABS: Acetaminophen LAB 8 mcg/mL (<30); Salicylate < 5.0 mg/dL (15-30)
[2024-04-11 16:36] LABS: Influenza A PCR NEGATIVE (Negative); Influenza B PCR NEGATIVE (Negative); Resp Syncy Virus RNA Qual PCR NEGATIVE (Negative); SARS COV2 PCR INHOUSE NEGATIVE (Negative)
[2024-04-11] MEDS: Phytonadione (Vit K1) 10 MG in 0.9 % Sodium Chloride 50 ML 51 MG IV (16:40)
[2024-04-11 17:02] LABS: Reflex Lactate? Lactic Acid Added
[2024-04-11 17:50] LABS: Alkaline Phosphatase 139 U/L (39-117)
[2024-04-11] MEDS: Piperacillin Sodium/Tazobactam 3.375 GM in 0.9 % Sodium Chloride 50 ML IV (18:10)
[2024-04-11] MEDS: Pantoprazole Sodium 40 MG/10 ML VIAL 80 MG IVPUSH (18:32)
[2024-04-11] MEDS: vancomycin HCL 1,000 MG in 0.9 % Sodium Chloride 250 ML 270 MG IV (18:36)
[2024-04-11 18:51] LABS: Glucose, Whole Blood 70 mg/dL (60-115)
[2024-04-11 19:23] LABS: ~Lactic Acid-LAB USE ONLY 8.9 mmol/L (0.5-2.0)
[2024-04-11] MEDS: Dextrose 5 % and 0.9 % NaCl 1,000 ML 125 ML IVCONT (19:29)
[2024-04-11 19:48] LABS: VBG Base Excess -8.8 mmol/L; VBG HCO3 14 mmol/L (22-26); VBG pCO2 20 mmHg; VBG pH 7.44 (7.32-7.43); VBG pO2 100 mmHg
[2024-04-11 19:49] LABS: Venous Blood Gas Refer to POC result
[2024-04-11] MEDS: Pantoprazole Sodium 80 MG in 0.9 % Sodium Chloride 80 ML 10 MG IV (19:53)
[2024-04-11 19:56] LABS: Ammonia 260 umol/L (13-55)
[2024-04-11 20:14] LABS: Alanine Aminotransferase 138 U/L (0-40); Albumin Level 1.3 g/dL (3.5-5.0); Alkaline Phosphatase 134 U/L (39-117); Anion Gap 24 (12-20); Aspartate Amino Transferase 870 U/L (5-37); Blood Urea Nitrogen 24 mg/dL (9-16); Carbon Dioxide 14 mmol/L (22-29); Chloride 110 mmol/L (96-108); Creatinine Clr Calc Pharmacy 41.9; Estimated Glomerular Filt Rate 40; Glucose Random 98 mg/dL (60-115); Potassium 4.9 mmol/L (3.3-5.1); Sodium 143 mmol/L (135-145); Total Protein 3.1 g/dL (6.5-8.0)
--- NOTE | 2024-04-11 20:20 | MHC.EDTECH ---
This tech took over care of pt at 1900,patient is on the bear hugger at this time,core temp 97.2,vitals taken,RN aware,occult stool,and urine collected and sent to lab,family at bedside,call carissa in reach
[2024-04-11 20:26] LABS: Thyroid Stimulating Hormone 1.08 uIU/mL (0.32-4.0)
[2024-04-11 20:37] LABS: OBS Int Ctl Valid YES; OBS1 POSITIVE (NEGATIVE)
[2024-04-11 20:44] LABS: Appearance Urine Hazy; Color Urine Yellow; Glucose Urine UA 100 mg/dL (Negative); Leukocyte Esterase Urine Small (1+) (Negative); Nitrite Urine Positive (Negative); Specific Gravity - Urine >= 1.030 (1.005-1.025); UMIC TRIGGER UACC YES; Urine Blood Moderate (2+) (Negative); Urine Ketones 15 mg/dL (Negative); Urine Protein 100 (2+) mg/dL (Neg-Trace)
--- NOTE | 2024-04-11 20:49 | PC.NURSE ---
This RN assumed care of patient at 20:50.
[2024-04-11 20:57] LABS: Reflex Lactate? 2 Y
[2024-04-11 21:22] LABS: Amphetamine Screen Urine Not Detected (Not Detect); Barbiturates, Urine Not Detected (Not Detect); Benzodiazepines Screen Urine Not Detected (Not Detect); Buprenorphine Scr Not Detected (Not Detect); Cannabinoid Screen Urine Not Detected (Not Detect); Cocaine Screen Urine Not Detected (Not Detect); Fentanyl, urine Not Detected (Not Detect); Methadone Screen, Urine Not Detected (Not Detect); Opiate Screen Urine Not Detected (Not Detect); Oxycodone Screen Urine Positive (Not Detect); Phencyclidine Screen Urine Not Detected (Not Detect)
[2024-04-11 21:28] LABS: Bacteria Urine 3+ (None Seen); Hyaline Casts Urine 0-2 /LPF (0-2); RBC Urine 0-2 /HPF (0-2); Squamous Epithelial Cell Urine 0-2 /HPF (0-2); UACC Culture Trigger YES
--- NOTE | 2024-04-11 21:39 | PHA.MEDREC ---
Pharmacy Consult ? Medication Reconciliation Pharmacy has completed the medication reconciliation.Med rec complete, utilized shelter list from [facility]
[2024-04-11 21:43] LABS: ~Lactic Acid-LAB USE ONLY 6.4 mmol/L (0.5-2.0)
[2024-04-11] MEDS: Octreotide Acetate 100 MCG/ML AMPUL IVPUSH (21:48)
--- NOTE | 2024-04-11 22:08 | PC.NURSE ---
Dr. Arias at bedside, MD inserted 14 Fr NG tube, placement confirmed by MD-auscultation and black colored GI content, tube connected to intermittent suction with 1100 mL of immediate output. Patient opening his eyes when called by name during NG tube placement, head of the bed elevated, patient tolerating NG tube well. 1 unit of PRBC's started and infusing without issues. Per , RN to pause D5 NS for 2 hours to infuse Albumin.
--- NOTE | 2024-04-11 22:13 | PM.EVENT ---
Event Note Date of Service: 04/11/24 Event Note: GI Consult-Full note dictated-History via ER staff and EM 1. Elevated LfT's-probable component of shock liver---observe, supportive care, FFP/VitK for elevated PT/INR, avoid hepatotoxins, check Hep A, B, and C 2. UGI Bleed--probable gastritis, exacerbated by coagulopathy--IV PPI infusion, FFP/VitK as above, PRBC's as needed. Hold on EGD for now given his overall condition Thanks Time Spent With Patient Time: Total time managing care of this patient today ____ minutes.
[2024-04-11] MEDS: Albumin Human 25 % 100 ML IV ×2 (22:22→23:41)
[2024-04-11] MEDS: Lactulose 20 GM/30 ML SOLUTION 30 GM NG-TUBE (22:23)
--- NOTE | 2024-04-11 23:12 | PC.NURSE ---
this rn assumed care of pt @ 190 pt noted to be responding to painful stimuli only dr figueroa aware repeat blood work obttained from femoral line pt family meember at bedside pt medicated according to mar dr figueroa made this rn aware he would like pt to be moved out of 20 into rm 4 or 5 due to level of care needed for pt this rn made chargeback specialist and cc aware pt moved to ed 5 @ 2034
[2024-04-11] MEDS: Lactulose 320 GM/480 ML SOLUTION 200 GM PR (23:16)
[2024-04-11] MEDS: Octreotide Acetate 500 MCG in 0.9 % Sodium Chloride 500 ML 50.1 MCG IVCONT (23:56)
[2024-04-12] VITALS (10 sets, daily range): BP systolic 109–148; BP diastolic 57–85; PULSE 96–114; RESP 15–19; TEMP 34.9–36.6; O2SAT 5–99
[2024-04-12 00:31] LABS: Lactic Acid 4.5 mmol/L (0.5-2.0)
--- NOTE | 2024-04-12 01:25 | P.HPHOSP_ITS ---
History of Present Illness Date of Service: 04/12/24 Chief Complaint: AMS This is a 63-year-old male with pertinent history of CVA on Eliquis, alcohol use disorder, insulin-dependent diabetes mellitus with neuropathy, hypertension, mood disorder, BPH, chronic opioid use who was brought to the emergency department for evaluation of altered mentation. Patient is a resident [facility] and was sent for evaluation of altered mentation. Patient was seen eating a chocolate bar containing mushroom and initial thought was that altered mentation was due to that. Upon further history, family endorsed alcohol use and patient's ammonia level was checked which was elevated at 260. He was also found to be anemic and with elevated transaminases, kidney function. Stool occult tested positive for blood. Upon inserting of NG tube about 1 L bloody gastric content obtained. He was given empiric IV antibiotics, initiated on IV Protonix and IV octreotide and given 2 unit PRBC in the ER. Also received vitamin K and PCC in the ER. Was placed on 5 L supplemental oxygen and imaging was concerning for bilateral pneumonia. Case was discussed with poison control and did not think that chocolate containing mushroom mood cause encephalopathy and elevated transaminases. Patient only withdraws to painful stimulus at the time of my evaluation. Not responding to verbal stimulus. Unable to obtain history or review of systems. Review of Systems 2 Review of Systems: Yes Unobtainable due to mental status PMFSH Medical History Normocytic anemia Wound of skin Anemia Hypertension Diabetes type 2 CVA (cerebral vascular accident) Pertinent family history: Unable to obtain Social History Household Members: Other Household Members Other:: facility Housing: [facility] Do you presently have visiting nurse or other home services: Yes Patient Tobacco Use Status: Former Tobacco user Advance Directives: Yes Advance Directives on File: Yes Advance Directives Date on File: 03/30/24 Do you have a plan to hurt others: No Plan Meds Allergies Allergy/AdvReac Type Severity Reaction Status Date / Time No Known Allergies Allergy Verified 04/11/24 14:15 Active Medications: Current Medications Pantoprazole Sodium 80 mg/ (Sodium Chloride) 100 mls @ 10 mls/hr IV .Q10H [facility]RE[facility] Last Admin: 04/11/24 19:53 Dose: 8 mg/hr, 10 mls/hr Dextrose/Sodium Chloride (D5ns) 1,000 mls @ 125 mls/hr IVCONT .Q8H [facility] Last Admin: 04/11/24 19:29 Dose: 125 mls/hr Octreotide Acetate 500 mcg/ (Sodium Chloride) 501 mls @ 50.1 mls/hr IVCONT .Q10H [facility] Last Admin: 04/11/24 23:56 Dose: 50 mcg/hr, 50.1 mls/hr Home Medications ?Medication ?Instructions ?Recorded ?Confirmed ?Last Taken ?Type acetaminophen 325 mg tablet 975 mg PO Q6H PRN Pain (Scale 03/31/24 04/11/24 Unknown History Score 1-3) apixaban 5 mg tablet 5 mg PO BID 03/31/24 04/11/24 Unknown History atorvastatin 80 mg tablet 80 mg PO BEDTIME 03/31/24 04/11/24 Unknown History carisoprodol 350 mg tablet (Soma) 350 mg PO QID Muscle Spasm 03/31/24 04/11/24 Unknown History duloxetine 60 mg capsule,delayed 60 mg PO DAILY 03/31/24 04/11/24 Unknown History release finasteride 5 mg tablet 5 mg PO DAILY 03/31/24 04/11/24 Unknown History folic acid 1 mg tablet 1 mg PO DAILY 03/31/24 04/11/24 Unknown History gabapentin 600 mg tablet 600 mg PO TID 03/31/24 04/11/24 Unknown History cxqugd-[id number]-mjzycek 1 cap PO QIDWMHS 03/31/24 04/11/24 Unknown History 6,000-19,000-30,000 unit capsule,delayed rel (Creon) multivitamin 1 tab PO DAILY 03/31/24 04/11/24 Unknown History oxycodone 5 mg tablet 5 mg PO Q6H PRN Pain (Scale Score 03/31/24 04/11/24 Unknown History 4-6) tamsulosin 0.4 mg capsule 0.4 mg PO BID 03/31/24 04/11/24 Unknown History thiamine HCl (vitamin B1) 100 mg 100 mg PO DAILY 03/31/24 04/11/24 Unknown History tablet Saccharomyces boulardii 250 mg 250 mg PO BID 04/11/24 04/11/24 Unknown History capsule acetaminophen 650 mg rectal 650 mg KS Q4H PRN PAIN OR FEVER 04/11/24 04/11/24 Unknown History suppository bisacodyl 10 mg rectal suppository 10 mg KS DAILY PRN BOWEL MANAGEMENT 04/11/24 04/11/24 Unknown History insulin lispro 100 unit/mL 0 unit subcut QIDACHS 04/11/24 04/11/24 Unknown History subcutaneous cartridge (Humalog U-100 Insulin) loperamide 2 mg tablet 2 mg PO QID PRN Diarrhea 04/11/24 04/11/24 Unknown History magnesium hydroxide 400 mg/5 mL 30 ml PO DAILY PRN BOWEL MANAGEMENT 04/11/24 04/11/24 Unknown History oral suspension (Milk of Magnesia) metformin 500 mg tablet,extended 500 mg PO DAILY 04/11/24 04/11/24 Unknown History release 24 hr naloxone 4 mg/actuation nasal 4 mg intranasal Q3M PRN 04/11/24 04/11/24 Unknown History spray (Narcan) SEDATION/UNRESPONSIVE sodium phosphates 19 gram-7 118 ml KS DAILY PRN BOWEL 04/11/24 04/11/24 Unknown History gram/118 mL enema (Fleet Enema) MANAGEMENT Physical Exam 2 Vital Signs and Narrative: Vital Signs: Last Vital Signs Temp 97.5 F 04/12/24 00:48 Pulse 107 H 04/12/24 00:48 Resp 15 04/12/24 00:48 BP 114/57 L 04/12/24 00:48 Pulse Ox 5 L 04/12/24 00:48 O2 Del Method Oxymask 04/12/24 00:48 O2 Flow Rate 5 04/12/24 00:48 BMI result Body Mass Index 21.6 Middle-aged male lying in bed on supplemental oxygen Neck supple, no JVD Regular rate and rhythm, S1-S2 heard Bilateral crackles present Abdomen with distention Patient only moves to painful stimulus, not responding to verbal stimulus Results Labs 04/11/24 14:52 04/11/24 19:40 Labs: Laboratory Results - last 24 hr 04/11/24 04/11/24 04/11/24 14:52 14:53 14:58 MCV 90.2 MCH 32.1 MCHC 35.6 RDW 16.7 H Plt Count 179 MPV 9.6 Immature Gran % (Auto) 0.9 H Neut % (Auto) 82.4 H Lymph % (Auto) 12.4 L [place] % (Auto) 4.1 Eos % (Auto) 0.1 Baso % (Auto) 0.1 Lymph # (Auto) 1.1 L [place] # (Auto) 0.4 Eos # (Auto) 0.0 Baso # (Auto) 0.0 Abs Immat Gran (auto) 0.08 H Absolute Neuts (auto) 7.4 Absolute Nucleated RBC 0.000 Nucleated RBC % (auto) 0.0 PT 70.4 H INR 6.0 H* VBG pH VBG pCO2 VBG pO2 VBG HCO3 VBG O2 Saturation VBG Base Excess Anion Gap 20 Estim Creat Clear Calc 36.5 Estimated GFR 34 POC Glucose Random Glucose 67 Lactic Acid 6.6 H* Lactic Acid F/U @ 2Hr Lactic Acid F/U @ 4Hr Calcium 6.5 L D Total Bilirubin 0.9 Direct Bilirubin 0.8 H AST 1032 H ALT 153 H Alkaline Phosphatase 139 H Ammonia Total Creatine Kinase Troponin I High Sens 15.9 D B-Natriuretic Peptide 80 Total Protein 3.2 L Albumin 1.3 L Lipase 10 TSH Urine Color Urine Appearance Urine pH Ur Specific [place] Urine Protein Urine Glucose (UA) Urine Ketones Urine Blood Urine Nitrite Ur Leukocyte Esterase Urine RBC Urine WBC Ur Squamous Epith Cells Urine Bacteria Hyaline Casts Urine Yeast Stool Occult Blood Salicylates < 5.0 L Urine Opiates Screen Ur Buprenorphine Scrn Ur Oxycodone Screen Urine Methadone Screen Urine Fentanyl Screen Acetaminophen 8 Ur Barbiturates Screen Ur Phencyclidine Scrn Ur Amphetamines Screen U Benzodiazepines Scrn Urine Cocaine Screen U Marijuana (THC) Screen Ethyl Alcohol < 10 Influenza Type A (PCR) NEGATIVE Influenza Type B (PCR) NEGATIVE RSV RNA Qual (PCR) NEGATIVE SARS-CoV-2 RNA (RT-PCR) NEGATIVE Blood Type A Negative Antibody Screen NEGATIVE Crossmatch See Detail 04/11/24 04/11/24 04/11/24 18:35 18:44 19:40 MCV MCH MCHC RDW Plt Count MPV Immature Gran % (Auto) Neut % (Auto) Lymph % (Auto) [place] % (Auto) Eos % (Auto) Baso % (Auto) Lymph # (Auto) [place] # (Auto) Eos # (Auto) Baso # (Auto) Abs Immat Gran (auto) Absolute Neuts (auto) Absolute Nucleated RBC Nucleated RBC % (auto) PT INR VBG pH VBG pCO2 VBG pO2 VBG HCO3 VBG O2 Saturation VBG Base Excess Anion Gap 24 H Estim Creat Clear Calc 41.9 Estimated GFR 40 POC Glucose 70 Random Glucose 98 Lactic Acid Lactic Acid F/U @ 2Hr 8.9 H* Lactic Acid F/U @ 4Hr Calcium 6.0 L* D Total Bilirubin 1.0 Direct Bilirubin AST 870 H ALT 138 H Alkaline Phosphatase 134 H Ammonia 260 H Total Creatine Kinase 109 Troponin I High Sens B-Natriuretic Peptide Total Protein 3.1 L Albumin 1.3 L Lipase TSH 1.08 Urine Color Urine Appearance Urine pH Ur Specific [place] Urine Protein Urine Glucose (UA) Urine Ketones Urine Blood Urine Nitrite Ur Leukocyte Esterase Urine RBC Urine WBC Ur Squamous Epith Cells Urine Bacteria Hyaline Casts Urine Yeast Stool Occult Blood Salicylates Urine Opiates Screen Ur Buprenorphine Scrn Ur Oxycodone Screen Urine Methadone Screen Urine Fentanyl Screen Acetaminophen Ur Barbiturates Screen Ur Phencyclidine Scrn Ur Amphetamines Screen U Benzodiazepines Scrn Urine Cocaine Screen U Marijuana (THC) Screen Ethyl Alcohol Influenza Type A (PCR) Influenza Type B (PCR) RSV RNA Qual (PCR) SARS-CoV-2 RNA (RT-PCR) Blood Type Antibody Screen Crossmatch 04/11/24 04/11/24 04/11/24 19:44 20:20 21:12 MCV MCH MCHC RDW Plt Count MPV Immature Gran % (Auto) Neut % (Auto) Lymph % (Auto) [place] % (Auto) Eos % (Auto) Baso % (Auto) Lymph # (Auto) [place] # (Auto) Eos # (Auto) Baso # (Auto) Abs Immat Gran (auto) Absolute Neuts (auto) Absolute Nucleated RBC Nucleated RBC % (auto) PT INR VBG pH 7.44 H VBG pCO2 20 VBG pO2 100 VBG HCO3 14 L VBG O2 Saturation TNP VBG Base Excess -8.8 Anion Gap Estim Creat Clear Calc Estimated GFR POC Glucose Random Glucose Lactic Acid Lactic Acid F/U @ 2Hr Lactic Acid F/U @ 4Hr 6.4 H* Calcium Total Bilirubin Direct Bilirubin AST ALT Alkaline Phosphatase Ammonia Total Creatine Kinase Troponin I High Sens B-Natriuretic Peptide Total Protein Albumin Lipase TSH Urine Color Yellow Urine Appearance Hazy Urine pH 5.0 Ur Specific [place] >= 1.030 H Urine Protein 100 (2+) H Urine Glucose (UA) 100 H Urine Ketones 15 Urine Blood Moderate (2+) H Urine Nitrite Positive H Ur Leukocyte Esterase Small (1+) H Urine RBC 0-2 Urine WBC 11-20 H Ur Squamous Epith Cells 0-2 Urine Bacteria 3+ Hyaline Casts 0-2 Urine Yeast Present Stool Occult Blood POSITIVE Salicylates Urine Opiates Screen Not Detected Ur Buprenorphine Scrn Not Detected Ur Oxycodone Screen Positive H Urine Methadone Screen Not Detected Urine Fentanyl Screen Not Detected Acetaminophen Ur Barbiturates Screen Not Detected Ur Phencyclidine Scrn Not Detected Ur Amphetamines Screen Not Detected U Benzodiazepines Scrn Not Detected Urine Cocaine Screen Not Detected U Marijuana (THC) Screen Not Detected Ethyl Alcohol Influenza Type A (PCR) Influenza Type B (PCR) RSV RNA Qual (PCR) SARS-CoV-2 RNA (RT-PCR) Blood Type Antibody Screen Crossmatch 04/11/24 23:52 MCV MCH MCHC RDW Plt Count MPV Immature Gran % (Auto) Neut % (Auto) Lymph % (Auto) [place] % (Auto) Eos % (Auto) Baso % (Auto) Lymph # (Auto) [place] # (Auto) Eos # (Auto) Baso # (Auto) Abs Immat Gran (auto) Absolute Neuts (auto) Absolute Nucleated RBC Nucleated RBC % (auto) PT INR VBG pH VBG pCO2 VBG pO2 VBG HCO3 VBG O2 Saturation VBG Base Excess Anion Gap Estim Creat Clear Calc Estimated GFR POC Glucose Random Glucose Lactic Acid 4.5 H* Lactic Acid F/U @ 2Hr Lactic Acid F/U @ 4Hr Calcium Total Bilirubin Direct Bilirubin AST ALT Alkaline Phosphatase Ammonia Total Creatine Kinase Troponin I High Sens B-Natriuretic Peptide Total Protein Albumin Lipase TSH Urine Color Urine Appearance Urine pH Ur Specific [place] Urine Protein Urine Glucose (UA) Urine Ketones Urine Blood Urine Nitrite Ur Leukocyte Esterase Urine RBC Urine WBC Ur Squamous Epith Cells Urine Bacteria Hyaline Casts Urine Yeast Stool Occult Blood Salicylates Urine Opiates Screen Ur Buprenorphine Scrn Ur Oxycodone Screen Urine Methadone Screen Urine Fentanyl Screen Acetaminophen Ur Barbiturates Screen Ur Phencyclidine Scrn Ur Amphetamines Screen U Benzodiazepines Scrn Urine Cocaine Screen U Marijuana (THC) Screen Ethyl Alcohol Influenza Type A (PCR) Influenza Type B (PCR) RSV RNA Qual (PCR) SARS-CoV-2 RNA (RT-PCR) Blood Type Antibody Screen Crossmatch Imaging Radiologist's Impressions: Impressions Chest X-Ray 04/11/24 13:38 IMPRESSION: Low lung volumes. Airspace opacities throughout both lungs which may represent pulmonary edema, diffuse pneumonia, or ARDS. Small bilateral pleural effusions. Electronically signed by: Jose Davila MD 04/11/2024 04:01 PM [facility] Assessment and Plan (1) Acute hepatic encephalopathy: Status: Acute (2) ZURDO (acute kidney injury): Status: Acute (3) Acidosis, lactic: Status: Acute (4) Acute GI bleeding: Status: Acute (5) Acute blood loss anemia: Status: Acute Plan This is a 63-year-old male with pertinent history of CVA on Eliquis, alcohol use disorder, [id number] diabetes mellitus with neuropathy, hypertension, mood disorder, BPH, chronic opioid use who was brought to the emergency department for evaluation of altered mentation. #. Acute blood loss anemia due to GI bleed in a patient with supra therapeutic INR: Will admit patient with cardiac monitoring. Initiated on IV Protonix, IV octreotide in the ER. No cirrhosis or ascites on imaging. Consulted Gastroenterology, appreciate assistance. Patient given vitamin K, PCC and 2 unit PRBC in the ER. Monitor INR. Hold Eliquis. Closely monitoring H&H #. Acute hepatic encephalopathy: Initiated on p.o. lactulose via NG tube in the ER. Repeat ammonia in am. Monitor mentation #. Severe sepsis and acute hypoxemic respiratory failure due to multifocal pneumonia: Imaging with bilateral ground-glass opacity. Consulted pulmonology, appreciate assistance. ?Aspiration, initiated on IV Unasyn. Resuscitated with IV crystalloids. Blood culture obtained #. Acute lactic acidosis due to sepsis #. Elevated transaminases: ?shock liver/alcoholic hepatitis. Check hepatitis panel. GI on board. Steroids contraindicated in setting of GI bleed #. Acute kidney injury stage II: Monitor with crystalloid resuscitation. Avoid nephrotoxins #. History of CVA: Hold Eliquis and statin #. Wxo-jyzhonk-hoklcstle diabetes mellitus: Initiating Accu-Cheks with sliding scale insulin every 6 hours #. Hypertension: Hold antihypertensives in the setting of severe sepsis #. Mood disorder: Hold mood stabilizers in the setting of encephalopathy Med rec pending DVT prophylaxis: Mechanical DNR/DNI. MOLST form present on admission Admit as inpatient and will require two night minimum hospital stay for monitoring of H&H, INR, mentation, kidney function, IV antibiotics (as above), which is not possible in a lesser acute setting. Specialist consult pending Quality Stroke Does the patient have a stroke diagnosis?: No VTE Prior VTE?: No VTE Risk Level:: Medical - moderate - high VTE Device Contraindication: N/A - Device Ordered VTE Drug Contraindication: Treatment Not Indicated
[2024-04-12 02:08] LABS: Reflex Lactate? Lactic Acid Added
[2024-04-12 02:14] LABS: Bilirubin Direct 0.7 mg/dL (0.0-0.5)
[2024-04-12] MEDS: Lactulose 20 GM/30 ML SOLUTION NG-TUBE ×3 (02:59→16:00)
[2024-04-12] MEDS: Albumin Human 25 % 100 ML 133.33 ML IV (03:01)
[2024-04-12] MEDS: Ampicillin Sodium/Sulbactam Na 3 GM in 0.9 % Sodium Chloride 100 ML IV ×3 (03:09→15:53)
[2024-04-12 03:33] LABS: MANUAL DIFF FLAG NO
[2024-04-12 03:35] LABS: Basophils Percent Auto 0.1 % (0-2); Eosinophils Percent Auto 0.1 % (0-4); Hematocrit 21.9 % (42.0-52.0); Hemoglobin 7.6 g/dl (14.0-18.0); Imm Gran Abs Auto 0.07 X10*3/uL (0.00-0.03); Imm Gran Pct Auto 0.6 % (0.0-0.4); Lymphocytes Absolute Auto 0.8 X10*3/uL (1.2-4.9); Lymphocytes Percent Auto 7.3 % (20-40); Mean Corpuscular HGB Conc 34.7 g/dl (31.0-36.0); Mean Corpuscular Hemoglobin 32.2 pg (27.0-33.0); Mean Corpuscular Volume 92.8 fL (80.0-98.0); Mean Platelet Volume 9.2 fL (9.4-12.4); Monocytes Absolute Auto 0.4 X10*3/uL (0.1-1.2); Monocytes Percent Auto 3.5 % (2-11); Neutrophils Absolute Auto 9.9 x10*3/uL (2.0-8.3); Neutrophils Percent Auto 88.4 % (45-73); Platelet Count 104 X10*3/uL (160-400); Red Blood Count 2.36 X10*6/uL (4.60-5.80); Red Cell Distribution Width 16.1 % (11.0-16.0); White Blood Count 11.2 X10*3/uL (4.8-10.8)
[2024-04-12 03:39] LABS: ~Lactic Acid-LAB USE ONLY 1.9 mmol/L (0.5-2.0)
[2024-04-12 03:45] LABS: Glucose, Whole Blood 196 mg/dL (60-115)
[2024-04-12] MEDS: Insulin Lispro 100 UNIT/ML 3 ML VIAL SUBCUT ×3 (03:53→16:01)
[2024-04-12 03:59] LABS: Alanine Aminotransferase 99 U/L (0-40); Albumin Level 2.3 g/dL (3.5-5.0); Alkaline Phosphatase 101 U/L (39-117); Anion Gap 22 (12-20); Aspartate Amino Transferase 584 U/L (5-37); Bilirubin Total 1.4 mg/dL (0.0-1.0); Blood Urea Nitrogen 27 mg/dL (9-16); Calcium 6.7 mg/dL (8.4-10.2); Carbon Dioxide 14 mmol/L (22-29); Chloride 112 mmol/L (96-108); Creatinine Clr Calc Pharmacy 33.8; Estimated Glomerular Filt Rate 31; Glucose Random 243 mg/dL (60-115); Sodium 143 mmol/L (135-145); Total Protein 3.9 g/dL (6.5-8.0)
[2024-04-12] MEDS: Albumin Human 25 % 100 ML 133 ML IV (04:02)
[2024-04-12] MEDS: Pantoprazole Sodium 80 MG in 0.9 % Sodium Chloride 80 ML 100 MG IV (05:07)
[2024-04-12] MEDS: Dextrose 5 % and 0.9 % NaCl 1,000 ML 125 ML IVCONT (05:17)
--- NOTE | 2024-04-12 05:47 | PC.NURSE ---
Patient responding to verbal stimuli, opening his eyes and moaning when called by name. Patient appears comfortable, 16 Fr temp sensing F/C is in place, patent. Patient medicated per MAR, repositioned from back to right side and propped with pillows. VSS.
[2024-04-12 06:06] LABS: Ammonia 289 umol/L (13-55)
[2024-04-12 06:32] LABS: INTERNATIONAL NORM RATIO 2.3 (0.9-1.1); Prothrombin Time 26.3 SEC (10.9-12.4)
[2024-04-12 07:24] LABS: HBc Num1 0.04 S/CO (0.00-0.79); HBsAGNum1 0.38 S/CO (0.00-0.99); Hepatitis A Antibody IgM 0.15 Index (0-0.79); Hepatitis B Core Antibody Nonreactive (Nonreactive); Hepatitis B Surface Antigen Negative (Negative); ~HepC Num1 0.04 S/CO (0.00-0.79); ~Hepatitis A Antibody IgM Nonreactive (Nonreactive); ~Hepatitis B Surface Antibody NONREACTIVE (Nonreactive); ~Hepatitis C Antibody Nonreactive (Nonreactive)
--- NOTE | 2024-04-12 08:30 | PC.NURSE ---
Assumed care of pt at 0700. Pt resting in bed quietly, alert to painful stimui only, not responding to commands, respirations even and unlabored, pt remains at 5L on oxymask, maintaining O2 sat 92-94%, no signs of distress. NG tube aspirated with dark brown stomach contents, patent/flushes easily. Pt nsr on linseed oil order filler, tachycardic, HR- 100s. 16fr temp sensing ku intact, draining clear/yellow urine, 50ml output in drainage bag. Pt checked for incontinence, repositioned to left side. Medicated per MAR, refer to MAR for medications running/rates. Call ferrer within reach, all needs met at this time.
--- NOTE | 2024-04-12 09:16 | P.CONPL_ITS ---
History of Present Illness History of Present Illness Consult date: 04/12/24 Chief complaint: AMS Narrative: This is an inpatient pulmonary consultation. The patient is nonresponsive at this time all the information is gathered from the chart. This is a 63-year-old male with pertinent history of CVA on Eliquis, alcohol use disorder, insulin- dependent diabetes mellitus with neuropathy, hypertension, mood disorder, BPH, chronic opioid use who was brought to the emergency department for evaluation of altered mentation. Patient is a resident [facility] and was sent for evaluation of altered mentation. Patient was seen eating a chocolate bar containing mushroom and initial thought was that altered mentation was due to that. Upon further history, family endorsed alcohol use and patient's ammonia level was checked which was elevated at 260. He was also found to be anemic and with elevated transaminases, kidney function. Stool occult tested positive for blood. Upon inserting of NG tube about 1 L bloody gastric content obtained. He was given empiric IV antibiotics, initiated on IV Protonix and IV octreotide and given 2 unit PRBC in the ER. Also received vitamin K and PCC in the ER. Was placed on 5 L supplemental oxygen and imaging was concerning for bilateral pneumonia. Case was discussed with poison control and did not think that chocolate containing mushroom mood cause encephalopathy and elevated transaminases. Patient only withdraws to painful stimulus at the time of my evaluation. Not responding to verbal stimulus. Unable to obtain history or review of systems. I did personally review his CT scan of the chest demonstrating ground-glass opacities in the upper lung areas these are likely secondary to aspiration pneumonitis while in a supine position. Also has significant pleural effusions left more than right increased cardiac size with evidence of calcifications of the coronary arteries. Review of Systems 2 Review of Systems: Yes Unobtainable due to mental status PMFSH Past Medical History Medical History (Updated 04/12/24 @ 09:23 by Jeremiah Montanez MD) Pleural effusion, bacterial Aspiration pneumonitis Normocytic anemia Wound of skin Anemia Hypertension Diabetes type 2 CVA (cerebral vascular accident) Social History Social History Household Members: Other Household Members Other:: facility Housing: Snf Do you presently have visiting nurse or other home services: Yes Patient Tobacco Use Status: Former Tobacco user Advance Directives: Yes Advance Directives on File: Yes Advance Directives Date on File: 03/30/24 Do you have a plan to hurt others: No Plan Nutrition Risks: On aspiration precautions Meds Allergies Allergy/AdvReac Type Severity Reaction Status Date / Time No Known Allergies Allergy Verified 04/11/24 14:15 Active Medications: Current Medications Calcium Carbonate (Calcium Carbonate 750 Mg Tab.Chew) 750 mg PO Q4H PRN PRN Reason: Heartburn Glucose (Glucose Gel 15 Gm Gel..Gram.) 15 gm PO Q15M PRN; Protocol PRN Reason: per Hypoglycemia Standing Ord. Pantoprazole Sodium 80 mg/ (Sodium Chloride) 100 mls @ 10 mls/hr IV .Q10H [facility] Last Admin: 04/12/24 05:07 Dose: 80 mg/hr, 100 mls/hr Dextrose/Sodium Chloride (D5ns) 1,000 mls @ 125 mls/hr IVCONT .Q8H [facility] Last Admin: 04/12/24 05:17 Dose: 125 mls/hr Octreotide Acetate 500 mcg/ (Sodium Chloride) 501 mls @ 50.1 mls/hr IVCONT .Q10H [facility] Last Admin: 04/11/24 23:56 Dose: 50 mcg/hr, 50.1 mls/hr Ampicillin Sodium/Sulbactam (Sodium 3 gm/ Sodium Chloride) 100 mls @ 200 mls/hr IV Q6H [facility] Last Admin: 04/12/24 08:46 Dose: 200 mls/hr Dextrose (D10) 250 mls @ 750 mls/hr IV Q15M PRN; Protocol PRN Reason: per Hypoglycemia Standing Ord. Insulin Human Lispro (Insulin Lispro 100 Unit/Ml 3 Ml Vial) 0 unit SUBCUT Q6H [facility]; Protocol Last Admin: 04/12/24 03:53 Dose: 2 unit Lactulose (Lactulose 20 Gm/30 Ml Solution) 20 gm NG-TUBE TID [facility] Last Admin: 04/12/24 08:46 Dose: 20 gm Magnesium Hydroxide (Milk Of Magnesia 30 Ml Oral.Susp) 30 ml PO DAILY PRN PRN Reason: Constipation Melatonin (Melatonin 3 Mg Tablet) 6 mg PO BEDTIME PRN PRN Reason: Insomnia Ondansetron HCl (Ondansetron Hcl 4 Mg/2 Ml Vial) 4 mg IVPUSH Q8H PRN PRN Reason: Nausea and Vomiting Sodium Chloride (0.9 % Sodium Chloride Flush 3 Ml Syringe) 3 ml IVFLUSH QSHIFT [facility] Home Medications ?Medication ?Instructions ?Recorded ?Confirmed ?Last Taken ?Type acetaminophen 325 mg tablet 975 mg PO Q6H PRN Pain (Scale 03/31/24 04/11/24 Unknown History Score 1-3) apixaban 5 mg tablet 5 mg PO BID 03/31/24 04/11/24 Unknown History atorvastatin 80 mg tablet 80 mg PO BEDTIME 03/31/24 04/11/24 Unknown History carisoprodol 350 mg tablet (Soma) 350 mg PO QID Muscle Spasm 03/31/24 04/11/24 Unknown History duloxetine 60 mg capsule,delayed 60 mg PO DAILY 03/31/24 04/11/24 Unknown History release finasteride 5 mg tablet 5 mg PO DAILY 03/31/24 04/11/24 Unknown History folic acid 1 mg tablet 1 mg PO DAILY 03/31/24 04/11/24 Unknown History gabapentin 600 mg tablet 600 mg PO TID 03/31/24 04/11/24 Unknown History bvruoz-lcpgrank-mckimyd 1 cap PO QIDWMHS 03/31/24 04/11/24 Unknown History 6,000-19,000-30,000 unit capsule,delayed rel (Creon) multivitamin 1 tab PO DAILY 03/31/24 04/11/24 Unknown History oxycodone 5 mg tablet 5 mg PO Q6H PRN Pain (Scale Score 03/31/24 04/11/24 Unknown History 4-6) tamsulosin 0.4 mg capsule 0.4 mg PO BID 03/31/24 04/11/24 Unknown History thiamine HCl (vitamin B1) 100 mg 100 mg PO DAILY 03/31/24 04/11/24 Unknown History tablet Saccharomyces boulardii 250 mg 250 mg PO BID 04/11/24 04/11/24 Unknown History capsule acetaminophen 650 mg rectal 650 mg ID Q4H PRN PAIN OR FEVER 04/11/24 04/11/24 Unknown History suppository bisacodyl 10 mg rectal suppository 10 mg ID DAILY PRN BOWEL MANAGEMENT 04/11/24 04/11/24 Unknown History insulin lispro 100 unit/mL 0 unit subcut QIDACHS 04/11/24 04/11/24 Unknown History subcutaneous cartridge (Humalog U-100 Insulin) loperamide 2 mg tablet 2 mg PO QID PRN Diarrhea 04/11/24 04/11/24 Unknown History magnesium hydroxide 400 mg/5 mL 30 ml PO DAILY PRN BOWEL MANAGEMENT 04/11/24 04/11/24 Unknown History oral suspension (Milk of Magnesia) metformin 500 mg tablet,extended 500 mg PO DAILY 04/11/24 04/11/24 Unknown History release 24 hr naloxone 4 mg/actuation nasal 4 mg intranasal Q3M PRN 04/11/24 04/11/24 Unknown History spray (Narcan) SEDATION/UNRESPONSIVE sodium phosphates 19 gram-7 118 ml ID DAILY PRN BOWEL 04/11/24 04/11/24 Unknown History gram/118 mL enema (Fleet Enema) MANAGEMENT Physical Exam 2 Vital Signs: Vital Signs: Last Vital Signs Temp 96.6 F L 04/12/24 07:59 Pulse 104 H 04/12/24 08:56 Resp 18 04/12/24 08:56 BP 127/79 04/12/24 08:56 Pulse Ox 92 04/12/24 08:56 O2 Del Method Oxymask 04/12/24 08:56 O2 Flow Rate 5 04/12/24 08:56 BMI result Body Mass Index 21.6 Const: General: patient obtunded Nutritional Appearance: cachectic, thin and underweight Orientation/consciousness: patient obtunded HEENT: Head: Yes normocephalic Eyes: Pupils: Irregular pupils (minimally reactive) Neck: Neck: Yes supple Resp: Auscultation: diminished lung sounds Cardio: Heart sounds: S1 normal heart sound present and S2 normal heart sound present GI: Palpation (GI): Soft to palpation Skin: General skin exam: dry skin Neuro: General: patient obtunded Extrem: Right upper extremity: no cyanosis Results Laboratory Findings 04/12/24 02:58 04/12/24 02:58 ABG, PT/INR, D-dimer: PT/INR, D-dimer PT 26.3 SEC (10.9-12.4) H D 04/12/24 05:52 INR 2.3 (0.9-1.1) H D 04/12/24 05:52 Abnormal lab findings: Abnormal Labs 04/11/24 04/11/24 04/11/24 14:52 14:58 18:35 WBC RBC 2.24 L D Hgb 7.2 L D Hct 20.2 L* D RDW 16.7 H Plt Count MPV Immature Gran % (Auto) 0.9 H Neut % (Auto) 82.4 H Lymph % (Auto) 12.4 L Lymph # (Auto) 1.1 L Abs Immat Gran (auto) 0.08 H Absolute Neuts (auto) PT 70.4 H INR 6.0 H* VBG pH VBG HCO3 Chloride 110 H Carbon Dioxide 17 L Anion Gap BUN 24 H Creatinine 2.00 H POC Glucose Random Glucose Lactic Acid 6.6 H* Lactic Acid F/U @ 2Hr 8.9 H* Lactic Acid F/U @ 4Hr Calcium 6.5 L D Total Bilirubin Direct Bilirubin 0.8 H AST 1032 H ALT 153 H Alkaline Phosphatase 139 H Ammonia Total Protein 3.2 L Albumin 1.3 L Ur Specific Aroda Urine Protein Urine Glucose (UA) Urine Blood Urine Nitrite Ur Leukocyte Esterase Urine WBC Salicylates < 5.0 L Ur Oxycodone Screen Crossmatch See Detail 04/11/24 04/11/24 04/11/24 19:40 19:44 20:20 WBC RBC Hgb Hct RDW Plt Count MPV Immature Gran % (Auto) Neut % (Auto) Lymph % (Auto) Lymph # (Auto) Abs Immat Gran (auto) Absolute Neuts (auto) PT INR VBG pH 7.44 H VBG HCO3 14 L Chloride 110 H Carbon Dioxide 14 L Anion Gap 24 H BUN 24 H Creatinine 1.74 H POC Glucose Random Glucose Lactic Acid Lactic Acid F/U @ 2Hr Lactic Acid F/U @ 4Hr Calcium 6.0 L* D Total Bilirubin Direct Bilirubin 0.7 H AST 870 H ALT 138 H Alkaline Phosphatase 134 H Ammonia 260 H Total Protein 3.1 L Albumin 1.3 L Ur Specific Aroda >= 1.030 H Urine Protein 100 (2+) H Urine Glucose (UA) 100 H Urine Blood Moderate (2+) H Urine Nitrite Positive H Ur Leukocyte Esterase Small (1+) H Urine WBC 11-20 H Salicylates Ur Oxycodone Screen Positive H Crossmatch 04/11/24 04/11/24 04/12/24 21:12 23:52 02:58 WBC 11.2 H RBC 2.36 L Hgb 7.6 L Hct 21.9 L RDW 16.1 H Plt Count 104 L D MPV 9.2 L Immature Gran % (Auto) 0.6 H Neut % (Auto) 88.4 H Lymph % (Auto) 7.3 L Lymph # (Auto) 0.8 L Abs Immat Gran (auto) 0.07 H Absolute Neuts (auto) 9.9 H PT INR VBG pH VBG HCO3 Chloride 112 H Carbon Dioxide 14 L Anion Gap 22 H BUN 27 H Creatinine 2.16 H POC Glucose Random Glucose 243 H Lactic Acid 4.5 H* Lactic Acid F/U @ 2Hr Lactic Acid F/U @ 4Hr 6.4 H* Calcium 6.7 L D Total Bilirubin 1.4 H Direct Bilirubin AST 584 H ALT 99 H Alkaline Phosphatase Ammonia Total Protein 3.9 L Albumin 2.3 L Ur Specific Aroda Urine Protein Urine Glucose (UA) Urine Blood Urine Nitrite Ur Leukocyte Esterase Urine WBC Salicylates Ur Oxycodone Screen Crossmatch 04/12/24 04/12/24 03:40 05:52 WBC RBC Hgb Hct RDW Plt Count MPV Immature Gran % (Auto) Neut % (Auto) Lymph % (Auto) Lymph # (Auto) Abs Immat Gran (auto) Absolute Neuts (auto) PT 26.3 H D INR 2.3 H D VBG pH VBG HCO3 Chloride Carbon Dioxide Anion Gap BUN Creatinine POC Glucose 196 H Random Glucose Lactic Acid Lactic Acid F/U @ 2Hr Lactic Acid F/U @ 4Hr Calcium Total Bilirubin Direct Bilirubin AST ALT Alkaline Phosphatase Ammonia 289 H Total Protein Albumin Ur Specific Aroda Urine Protein Urine Glucose (UA) Urine Blood Urine Nitrite Ur Leukocyte Esterase Urine WBC Salicylates Ur Oxycodone Screen Crossmatch Assessment and Plan (1) Pneumonia: Qualifiers: Pneumonia type: aspiration pneumonia Laterality: bilateral Lung location: unspecified part of lung Aspiration pneumonia type: unspecified Q ualified Code(s): J69.0 - Pneumonitis due to inhalation of food and vomit Status: Acute (2) Aspiration pneumonitis: Status: Acute (3) Acidosis, lactic: Status: Acute (4) Pleural effusion, bacterial: Status: Acute Plan The patient is showing signs of multiorgan system failure. He is not protecting his airway as he is obtunded his altered mental status. He is currently DNR, otherwise he will require intubation for protection. The patient carries a very poor prognosis. Recommendations: Goals of care should be discussed with the family in view of his significant comorbidities and presentation. In view of his very poor prognosis and comorbidities he is not likely to do well even with aggressive medical therapies. Repeat blood gas. Lactic acidosis likely secondary to liver failure, renal failure and also sepsis Broad-spectrum coverage to treat for aspiration pneumonia Thoracentesis warranted for both diagnostic and therapeutic purposes. Left side would be the appropriate area to intervene DNR/DNI Procedures Date of Service Date of Service: 04/12/24
[2024-04-12 09:19] LABS: ABG Base Excess -8.5 mmol/L; ABG HCO3 14 mmol/L (22-26); ABG pCO2 23 mmHg (32-45); ABG pO2 64 mmHg (83-108)
[2024-04-12] MEDS: Octreotide Acetate 500 MCG in 0.9 % Sodium Chloride 500 ML 50.1 MCG IVCONT (09:21)
[2024-04-12 09:27] LABS: Glucose, Whole Blood 241 mg/dL (60-115)
[2024-04-12] MEDS: Sodium Bicarbonate 8.4% 150 MEQ in Dextrose 5 % 850 ML 100 MEQ IV (10:11)
[2024-04-12 10:34] LABS: VBG Base Excess -8.5 mmol/L; VBG HCO3 15 mmol/L (22-26); VBG pCO2 24 mmHg; VBG pH 7.39 (7.32-7.43); VBG pO2 105 mmHg
[2024-04-12 10:36] LABS: Venous Blood Gas Refer to POC result
--- NOTE | 2024-04-12 10:51 | HO.PM.IMPN ---
Subjective Subjective Date of Service: 04/12/24 Review of Systems Review of Systems: Yes Unobtainable due to mental condition Physical Exam Vital Signs: Vital Signs: Last Vital Signs Temp 96.6 F L 04/12/24 07:59 Pulse 104 H 04/12/24 08:56 Resp 18 04/12/24 08:56 BP 127/79 04/12/24 08:56 Pulse Ox 92 04/12/24 08:56 O2 Del Method Oxymask 04/12/24 08:56 O2 Flow Rate 5 04/12/24 08:56 BMI result Body Mass Index 21.6 comatous, ill appearing, pupils sluggis, shallow breathing, ngt in place Objective Data Active Medications Calcium Carbonate (Calcium Carbonate 750 Mg Tab.Chew) 750 mg PO Q4H PRN PRN Reason: Heartburn Glucose (Glucose Gel 15 Gm Gel..Gram.) 15 gm PO Q15M PRN; Protocol PRN Reason: per Hypoglycemia Standing Ord. Pantoprazole Sodium 80 mg/ (Sodium Chloride) 100 mls @ 10 mls/hr IV .Q10H [facility] Last Admin: 04/12/24 05:07 Dose: 80 mg/hr, 100 mls/hr Documented By: DOLORES Octreotide Acetate 500 mcg/ (Sodium Chloride) 501 mls @ 50.1 mls/hr IVCONT .Q10H [facility] Last Admin: 04/12/24 09:21 Dose: 50 mcg/hr, 50.1 mls/hr Documented By: ALF Ampicillin Sodium/Sulbactam (Sodium 3 gm/ Sodium Chloride) 100 mls @ 200 mls/hr IV Q6H [facility] Last Infusion: 04/12/24 10:11 Dose: Infused Documented By: ALF Dextrose (D10) 250 mls @ 750 mls/hr IV Q15M PRN; Protocol PRN Reason: per Hypoglycemia Standing Ord. Sodium Bicarbonate 150 meq/ (Dextrose) 1,000 mls @ 100 mls/hr IV .Q10H [facility] Last Admin: 04/12/24 10:11 Dose: 100 mls/hr Documented By: ALF Insulin Human Lispro (Insulin Lispro 100 Unit/Ml 3 Ml Vial) 0 unit SUBCUT Q6H ANDREW; Protocol Last Admin: 04/12/24 09:27 Dose: 4 unit Documented By: ALF Lactulose (Lactulose 20 Gm/30 Ml Solution) 20 gm NG-TUBE TID [facility] Last Admin: 04/12/24 08:46 Dose: 20 gm Documented By: ALF Magnesium Hydroxide (Milk Of Magnesia 30 Ml Oral.Susp) 30 ml PO DAILY PRN PRN Reason: Constipation Melatonin (Melatonin 3 Mg Tablet) 6 mg PO BEDTIME PRN PRN Reason: Insomnia Ondansetron HCl (Ondansetron Hcl 4 Mg/2 Ml Vial) 4 mg IVPUSH Q8H PRN PRN Reason: Nausea and Vomiting Sodium Chloride (0.9 % Sodium Chloride Flush 3 Ml Syringe) 3 ml IVFLUSH QSHIFT [facility] Last Admin: 04/12/24 09:44 Dose: Not Given Documented By: ALF Non-Admin Reason: IV Running Labs 04/12/24 02:58 04/12/24 02:58 Labs: Laboratory Results - last 24 hr 04/11/24 04/11/24 04/11/24 14:52 14:53 14:58 MCV 90.2 MCH 32.1 MCHC 35.6 RDW 16.7 H Plt Count 179 MPV 9.6 Immature Gran % (Auto) 0.9 H Neut % (Auto) 82.4 H Lymph % (Auto) 12.4 L Adams % (Auto) 4.1 Eos % (Auto) 0.1 Baso % (Auto) 0.1 Lymph # (Auto) 1.1 L Adams # (Auto) 0.4 Eos # (Auto) 0.0 Baso # (Auto) 0.0 Abs Immat Gran (auto) 0.08 H Absolute Neuts (auto) 7.4 Absolute Nucleated RBC 0.000 Nucleated RBC % (auto) 0.0 PT 70.4 H INR 6.0 H* O2 Saturation ABG pH at Pt Temp ABG pCO2 at Pt Temp ABG pO2 at Pt Temp ABG HCO3 ABG Base Excess (Actual) VBG pH VBG pCO2 VBG pO2 VBG HCO3 VBG O2 Saturation VBG Base Excess Anion Gap 20 Estim Creat Clear Calc 36.5 Estimated GFR 34 POC Glucose Random Glucose 67 Lactic Acid 6.6 H* Lactic Acid F/U @ 2Hr Lactic Acid F/U @ 4Hr Calcium 6.5 L D Total Bilirubin 0.9 Direct Bilirubin 0.8 H AST 1032 H ALT 153 H Alkaline Phosphatase 139 H Ammonia Total Creatine Kinase Troponin I High Sens 15.9 D B-Natriuretic Peptide 80 Total Protein 3.2 L Albumin 1.3 L Lipase 10 TSH Urine Color Urine Appearance Urine pH Ur Specific [place] Urine Protein Urine Glucose (UA) Urine Ketones Urine Blood Urine Nitrite Ur Leukocyte Esterase Urine RBC Urine WBC Ur Squamous Epith Cells Urine Bacteria Hyaline Casts Urine Yeast Stool Occult Blood Salicylates < 5.0 L Urine Opiates Screen Ur Buprenorphine Scrn Ur Oxycodone Screen Urine Methadone Screen Urine Fentanyl Screen Acetaminophen 8 Ur Barbiturates Screen Ur Phencyclidine Scrn Ur Amphetamines Screen U Benzodiazepines Scrn Urine Cocaine Screen U Marijuana (THC) Screen Ethyl Alcohol < 10 Hepatitis A IgM Ab Hep Bs Antigen Hep Bs Antibody Hep B Core Total Ab Hepatitis C Ab (EIA) Influenza Type A (PCR) NEGATIVE Influenza Type B (PCR) NEGATIVE RSV RNA Qual (PCR) NEGATIVE SARS-CoV-2 RNA (RT-PCR) NEGATIVE Blood Type A Negative Antibody Screen NEGATIVE Crossmatch See Detail 04/11/24 04/11/24 04/11/24 18:35 18:44 19:40 MCV MCH MCHC RDW Plt Count MPV Immature Gran % (Auto) Neut % (Auto) Lymph % (Auto) Adams % (Auto) Eos % (Auto) Baso % (Auto) Lymph # (Auto) Adams # (Auto) Eos # (Auto) Baso # (Auto) Abs Immat Gran (auto) Absolute Neuts (auto) Absolute Nucleated RBC Nucleated RBC % (auto) PT INR O2 Saturation ABG pH at Pt Temp ABG pCO2 at Pt Temp ABG pO2 at Pt Temp ABG HCO3 ABG Base Excess (Actual) VBG pH VBG pCO2 VBG pO2 VBG HCO3 VBG O2 Saturation VBG Base Excess Anion Gap 24 H Estim Creat Clear Calc 41.9 Estimated GFR 40 POC Glucose 70 Random Glucose 98 Lactic Acid Lactic Acid F/U @ 2Hr 8.9 H* Lactic Acid F/U @ 4Hr Calcium 6.0 L* D Total Bilirubin 1.0 Direct Bilirubin 0.7 H AST 870 H ALT 138 H Alkaline Phosphatase 134 H Ammonia 260 H Total Creatine Kinase 109 Troponin I High Sens B-Natriuretic Peptide Total Protein 3.1 L Albumin 1.3 L Lipase TSH 1.08 Urine Color Urine Appearance Urine pH Ur Specific [place] Urine Protein Urine Glucose (UA) Urine Ketones Urine Blood Urine Nitrite Ur Leukocyte Esterase Urine RBC Urine WBC Ur Squamous Epith Cells Urine Bacteria Hyaline Casts Urine Yeast Stool Occult Blood Salicylates Urine Opiates Screen Ur Buprenorphine Scrn Ur Oxycodone Screen Urine Methadone Screen Urine Fentanyl Screen Acetaminophen Ur Barbiturates Screen Ur Phencyclidine Scrn Ur Amphetamines Screen U Benzodiazepines Scrn Urine Cocaine Screen U Marijuana (THC) Screen Ethyl Alcohol Hepatitis A IgM Ab Hep Bs Antigen Hep Bs Antibody Hep B Core Total Ab Hepatitis C Ab (EIA) Influenza Type A (PCR) Influenza Type B (PCR) RSV RNA Qual (PCR) SARS-CoV-2 RNA (RT-PCR) Blood Type Antibody Screen Crossmatch 04/11/24 04/11/24 04/11/24 19:44 20:20 21:12 MCV MCH MCHC RDW Plt Count MPV Immature Gran % (Auto) Neut % (Auto) Lymph % (Auto) Adams % (Auto) Eos % (Auto) Baso % (Auto) Lymph # (Auto) Adams # (Auto) Eos # (Auto) Baso # (Auto) Abs Immat Gran (auto) Absolute Neuts (auto) Absolute Nucleated RBC Nucleated RBC % (auto) PT INR O2 Saturation ABG pH at Pt Temp ABG pCO2 at Pt Temp ABG pO2 at Pt Temp ABG HCO3 ABG Base Excess (Actual) VBG pH 7.44 H VBG pCO2 20 VBG pO2 100 VBG HCO3 14 L VBG O2 Saturation TNP VBG Base Excess -8.8 Anion Gap Estim Creat Clear Calc Estimated GFR POC Glucose Random Glucose Lactic Acid Lactic Acid F/U @ 2Hr Lactic Acid F/U @ 4Hr 6.4 H* Calcium Total Bilirubin Direct Bilirubin AST ALT Alkaline Phosphatase Ammonia Total Creatine Kinase Troponin I High Sens B-Natriuretic Peptide Total Protein Albumin Lipase TSH Urine Color Yellow Urine Appearance Hazy Urine pH 5.0 Ur Specific [place] >= 1.030 H Urine Protein 100 (2+) H Urine Glucose (UA) 100 H Urine Ketones 15 Urine Blood Moderate (2+) H Urine Nitrite Positive H Ur Leukocyte Esterase Small (1+) H Urine RBC 0-2 Urine WBC 11-20 H Ur Squamous Epith Cells 0-2 Urine Bacteria 3+ Hyaline Casts 0-2 Urine Yeast Present Stool Occult Blood POSITIVE Salicylates Urine Opiates Screen Not Detected Ur Buprenorphine Scrn Not Detected Ur Oxycodone Screen Positive H Urine Methadone Screen Not Detected Urine Fentanyl Screen Not Detected Acetaminophen Ur Barbiturates Screen Not Detected Ur Phencyclidine Scrn Not Detected Ur Amphetamines Screen Not Detected U Benzodiazepines Scrn Not Detected Urine Cocaine Screen Not Detected U Marijuana (THC) Screen Not Detected Ethyl Alcohol Hepatitis A IgM Ab Hep Bs Antigen Hep Bs Antibody Hep B Core Total Ab Hepatitis C Ab (EIA) Influenza Type A (PCR) Influenza Type B (PCR) RSV RNA Qual (PCR) SARS-CoV-2 RNA (RT-PCR) Blood Type Antibody Screen Crossmatch 04/11/24 04/12/24 04/12/24 23:52 02:58 03:40 MCV 92.8 MCH 32.2 MCHC 34.7 RDW 16.1 H Plt Count 104 L D MPV 9.2 L Immature Gran % (Auto) 0.6 H Neut % (Auto) 88.4 H Lymph % (Auto) 7.3 L Adams % (Auto) 3.5 Eos % (Auto) 0.1 Baso % (Auto) 0.1 Lymph # (Auto) 0.8 L Adams # (Auto) 0.4 Eos # (Auto) 0.0 Baso # (Auto) 0.0 Abs Immat Gran (auto) 0.07 H Absolute Neuts (auto) 9.9 H Absolute Nucleated RBC 0.000 Nucleated RBC % (auto) 0.0 PT INR O2 Saturation ABG pH at Pt Temp ABG pCO2 at Pt Temp ABG pO2 at Pt Temp ABG HCO3 ABG Base Excess (Actual) VBG pH VBG pCO2 VBG pO2 VBG HCO3 VBG O2 Saturation VBG Base Excess Anion Gap 22 H Estim Creat Clear Calc 33.8 Estimated GFR 31 POC Glucose 196 H Random Glucose 243 H Lactic Acid 4.5 H* Lactic Acid F/U @ 2Hr 1.9 Lactic Acid F/U @ 4Hr Calcium 6.7 L D Total Bilirubin 1.4 H Direct Bilirubin AST 584 H ALT 99 H Alkaline Phosphatase 101 Ammonia Total Creatine Kinase Troponin I High Sens B-Natriuretic Peptide Total Protein 3.9 L Albumin 2.3 L Lipase TSH Urine Color Urine Appearance Urine pH Ur Specific [place] Urine Protein Urine Glucose (UA) Urine Ketones Urine Blood Urine Nitrite Ur Leukocyte Esterase Urine RBC Urine WBC Ur Squamous Epith Cells Urine Bacteria Hyaline Casts Urine Yeast Stool Occult Blood Salicylates Urine Opiates Screen Ur Buprenorphine Scrn Ur Oxycodone Screen Urine Methadone Screen Urine Fentanyl Screen Acetaminophen Ur Barbiturates Screen Ur Phencyclidine Scrn Ur Amphetamines Screen U Benzodiazepines Scrn Urine Cocaine Screen U Marijuana (THC) Screen Ethyl Alcohol Hepatitis A IgM Ab Hep Bs Antigen Hep Bs Antibody Hep B Core Total Ab Hepatitis C Ab (EIA) Influenza Type A (PCR) Influenza Type B (PCR) RSV RNA Qual (PCR) SARS-CoV-2 RNA (RT-PCR) Blood Type Antibody Screen Crossmatch 04/12/24 04/12/24 04/12/24 05:52 09:08 09:22 MCV MCH MCHC RDW Plt Count MPV Immature Gran % (Auto) Neut % (Auto) Lymph % (Auto) Adams % (Auto) Eos % (Auto) Baso % (Auto) Lymph # (Auto) Adams # (Auto) Eos # (Auto) Baso # (Auto) Abs Immat Gran (auto) Absolute Neuts (auto) Absolute Nucleated RBC Nucleated RBC % (auto) PT 26.3 H D INR 2.3 H D O2 Saturation 93.0 ABG pH at Pt Temp 7.40 ABG pCO2 at Pt Temp 23 L ABG pO2 at Pt Temp 64 L ABG HCO3 14 L ABG Base Excess (Actual) -8.5 VBG pH VBG pCO2 VBG pO2 VBG HCO3 VBG O2 Saturation VBG Base Excess Anion Gap Estim Creat Clear Calc Estimated GFR POC Glucose 241 H Random Glucose Lactic Acid Lactic Acid F/U @ 2Hr Lactic Acid F/U @ 4Hr Calcium Total Bilirubin Direct Bilirubin AST ALT Alkaline Phosphatase Ammonia 289 H Total Creatine Kinase Troponin I High Sens B-Natriuretic Peptide Total Protein Albumin Lipase TSH Urine Color Urine Appearance Urine pH Ur Specific [place] Urine Protein Urine Glucose (UA) Urine Ketones Urine Blood Urine Nitrite Ur Leukocyte Esterase Urine RBC Urine WBC Ur Squamous Epith Cells Urine Bacteria Hyaline Casts Urine Yeast Stool Occult Blood Salicylates Urine Opiates Screen Ur Buprenorphine Scrn Ur Oxycodone Screen Urine Methadone Screen Urine Fentanyl Screen Acetaminophen Ur Barbiturates Screen Ur Phencyclidine Scrn Ur Amphetamines Screen U Benzodiazepines Scrn Urine Cocaine Screen U Marijuana (THC) Screen Ethyl Alcohol Hepatitis A IgM Ab Nonreactive Hep Bs Antigen Negative Hep Bs Antibody NONREACTIVE Hep B Core Total Ab Nonreactive Hepatitis C Ab (EIA) Nonreactive Influenza Type A (PCR) Influenza Type B (PCR) RSV RNA Qual (PCR) SARS-CoV-2 RNA (RT-PCR) Blood Type Antibody Screen Crossmatch 04/12/24 10:26 MCV MCH MCHC RDW Plt Count MPV Immature Gran % (Auto) Neut % (Auto) Lymph % (Auto) Adams % (Auto) Eos % (Auto) Baso % (Auto) Lymph # (Auto) Adams # (Auto) Eos # (Auto) Baso # (Auto) Abs Immat Gran (auto) Absolute Neuts (auto) Absolute Nucleated RBC Nucleated RBC % (auto) PT INR O2 Saturation ABG pH at Pt Temp ABG pCO2 at Pt Temp ABG pO2 at Pt Temp ABG HCO3 ABG Base Excess (Actual) VBG pH 7.39 VBG pCO2 24 VBG pO2 105 VBG HCO3 15 L VBG O2 Saturation TNP VBG Base Excess -8.5 Anion Gap Estim Creat Clear Calc Estimated GFR POC Glucose Random Glucose Lactic Acid Lactic Acid F/U @ 2Hr Lactic Acid F/U @ 4Hr Calcium Total Bilirubin Direct Bilirubin AST ALT Alkaline Phosphatase Ammonia Total Creatine Kinase Troponin I High Sens B-Natriuretic Peptide Total Protein Albumin Lipase TSH Urine Color Urine Appearance Urine pH Ur Specific [place] Urine Protein Urine Glucose (UA) Urine Ketones Urine Blood Urine Nitrite Ur Leukocyte Esterase Urine RBC Urine WBC Ur Squamous Epith Cells Urine Bacteria Hyaline Casts Urine Yeast Stool Occult Blood Salicylates Urine Opiates Screen Ur Buprenorphine Scrn Ur Oxycodone Screen Urine Methadone Screen Urine Fentanyl Screen Acetaminophen Ur Barbiturates Screen Ur Phencyclidine Scrn Ur Amphetamines Screen U Benzodiazepines Scrn Urine Cocaine Screen U Marijuana (THC) Screen Ethyl Alcohol Hepatitis A IgM Ab Hep Bs Antigen Hep Bs Antibody Hep B Core Total Ab Hepatitis C Ab (EIA) Influenza Type A (PCR) Influenza Type B (PCR) RSV RNA Qual (PCR) SARS-CoV-2 RNA (RT-PCR) Blood Type Antibody Screen Crossmatch Assessment and Plan (1) Acute hepatic encephalopathy: Status: Acute Plan 63M PMH 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, alcohol dependence with fatty liver and chronic pancreatitis, dm, htn, mood disorder, bph, chronic opiate dependence presented with ams Acute metabolic encephalopathy Multifactorial Acute hepatic encephalopathy due to acute shock liver in a background of alcoholic fatty liver disease likely due to hypotension NG tube for lactulose Severe sepsis and acute hypoxic respiratory failure due to multifocal pneumonia Continue IV Unasyn, follow up blood cultures Severe protein calorie malnutrition due to chronic pancreatitis from alcohol dependence Acute kidney injury IV fluids, monitor Acute metabolic acidosis Bicarb, monitor History of CVA When taking p.o. continue Eliquis and statin Diabetes Insulin Acute blood loss anemia Continue PPI, octreotide, monitor status post vitamin K, PC, 2 units PRBC No EGD for now as unstable DNR/DNI - grave prognosis dvt prophylaxis -mechanical due to bleed reason for continued hospitalization:hypoxia, ams Quality Stroke Does the patient have a stroke diagnosis?: No VTE Prior VTE?: No VTE Risk Level:: Medical - moderate - high VTE Device Contraindication: N/A - Device Ordered VTE Drug Contraindication: Treatment Not Indicated
[2024-04-12 10:56] LABS: Cortisol Random 52.4 ug/dL
--- NOTE | 2024-04-12 11:22 | PC.NURSE ---
Pt biba from [facility] for increased lethargy/AMS starting this morning. Per staff at [facility], pt had a chocolate edible and developed hypotension, increased lethargy, and AMS. En route to ED, ems was unable to palpate peripheral pulses, only carotid artery palpable, not responding to questions/following commands, poc 70s--> EMS gave oral glucose. Upon arrival pt lethargic, responding to painful stimuli only, extremities cold to touch, no palpable peripheral pulses, able to feel carotid artery on palpation, cap refill >3 seconds, greyish hue to skin color/diaphoretic. Pt found to be hypotensive, 70s/40s, hypothermic, tachycardic, and tachypneic. Sepsis alert called @ 1355, MD Sims immediately to bedside. This RN and BROOKLYNN Stubbs at bedside to obtain IV access with ultrasound with no luck. Plan for central line insertion. Pt arrived on 2L NC, O2 desat to mid 80s. Placed on 5L Oxymask, maintaining O2 sat low 90s, respirations even and unlabored, bilateral crackles heard throughout all lung pierre. Pt has 16fr ku cath draining dark yellow urine with sediment- plan to remove and change ku cath/obtain urine sample and send to lab. Pt incontinent of black/mucous like stool, sample obtained and sent to lab.
--- NOTE | 2024-04-12 12:27 | PC.NURSE ---
Melinda admitted that she did not end the transfusion yesterday in [facility] (which actually ended at 1806). There was confusion due to the fact that Neda, the night nurse attempted to end transfusion, but only documented end amount instead. I was able to end transfusion in [facility] to accurately depict volume and time with the help of IT. first transfusion was ended by Melinda Harris at 1806
--- NOTE | 2024-04-12 13:47 | MHC.CM.PN ---
CM attempted to meet with Patient at bedside but he was sleeping soundly and not easily woken by calling his name. CM left the original IMM at bedside for Patient's review and a copy will be placed on the chart. Patient comes from [facility] @ [facility] ([facility]) and the tentative plan is to return there at dc. CM has initiated and will follow for dc planning.
[2024-04-12 15:44] LABS: Glucose, Whole Blood 224 mg/dL (60-115)
[2024-04-12 16:27] LABS: Hematocrit 19.6 % (42.0-52.0)
--- NOTE | 2024-04-12 16:29 | W.MHC.ACPN ---
Advanced Care Planning Note Advanced Care Planning Note Discussed with: family member(s) Time spent (in minutes): 18 Narrative: Discussed with family at bedside and healthcare proxy over the phone and she could not be at bedside. We discussed diagnosis and multi organ failure, sepsis, chronic pancreatitis, poor prognosis decision made to make patient comfort measures only. Problems Discussed (1) Acute hepatic encephalopathy:
[2024-04-12] MEDS: Morphine Sulfate 2 MG/ML CARTRIDGE IVPUSH (16:59)
--- NOTE | 2024-04-12 17:50 | PC.NURSE ---
Pt incontinent of large amount of black/mucous like stool. MD Jaramillo made aware of amount of stool/actively bleeding. MD at bedside to assess patient. Pt cleaned up and repositioned. Pt transitioned to TELEPHONE CLERK by health care proxy. 2mg Morphine given for comfort. IV fluids/drips discontinued. Family remains at bedside, call ferrer within reach.
[2024-04-13] VITALS: PULSE 115; RESP 24; O2SAT 30
[2024-04-13] MEDS: Morphine Sulfate 2 MG/ML CARTRIDGE IVPUSH (00:06)
[2024-04-13] MEDS: 0.9 % Sodium Chloride Flush 3 ML SYRINGE IVFLUSH (00:08)
--- NOTE | 2024-04-13 01:04 | PM.EVENT ---
Event Note Date of Service: 04/13/24 Event Note: I was called to patient's bedside to pronounce the patient. No spontaneous movements were present. There was no response to verbal or tactile stimulus. Pupils were mid dilated and fixed. No breath sounds were appreciated over either lung field. No carotid pulses were palpable. No heart sounds were auscultated over entire precordium. Patient was on comfort measures only. Patient pronounced on 04/13/2024 at 01:00. Carolann (sister) called and condolences offered. certificate completed. Time Spent With Patient Time: Total time managing care of this patient today ____ minutes.
--- NOTE | 2024-04-13 04:20 | CONS_ITS ---
DATE OF SERVICE: 04/11/2024 REASON FOR CONSULTATION: GI bleeding and elevated LFTs. History has been provided by the ER staff and the medical record as the patient is unable to give any history due to encephalopathy. HISTORY OF PRESENT ILLNESS: The patient is a 63-year-old male transferred from a residential for evaluation of melena and hypotension. He has been residing at the residential for multiple medical problems including previous stroke, previous alcohol use disorder, insulin-dependent diabetes mellitus with neuropathy, mood disorder, and hypertension. He apparently developed a change in mental status with associated evidence of black stools. He apparently had eaten a chocolate bar containing mushroom type ingredients. Upon transfer to the ER, he was noted to be hypotensive and had melena on exam. He was quite lethargic. He was on Eliquis and did receive reversal agent in the form of prothrombin complex in the ER. He also received transfusion of packed red blood cells. MEDICATIONS: On transfer from the residential included acetaminophen, Eliquis, atorvastatin, Soma, duloxetine, finasteride, folic acid, gabapentin, Creon, lisinopril, multivitamins, oxycodone p.r.n., tamsulosin, and thiamine. PAST MEDICAL HISTORY: Notable for previous CVA with resultant weakness, history of alcohol abuse, history of diabetes mellitus, history of hypertension, mood disorder, enlarged prostate, previous opioid and alcohol abuse. SOCIAL HISTORY: As above. FAMILY HISTORY: Noncontributory. REVIEW OF SYSTEMS: Not obtainable due to poor mental status. PHYSICAL EXAMINATION: GENERAL: The patient is lethargic and not responsive to verbal stimuli. Elderly male, but in no distress. HEENT: Anicteric sclerae. Moist mucous membranes. CHEST: Reveals diminished breath sounds bilaterally. CARDIAC: Normal S1, S2. ABDOMEN: Soft, nondistended, and nontender. LABORATORY DATA: White blood cell count 9.0, hemoglobin 7.2 compared to hemoglobin of 10.9 back on April 03, MCV 90, platelets 179,000. PT 70.4 with INR of 6.0. Normal electrolytes except for serum CO2 of 17. BUN 24, creatinine 2.0 compared to a BUN of 15 and creatinine 0.7 on April 03. Lactic acid level 6.6. Total bilirubin 0.9, AST 1032, ALT 153, alkaline phosphatase 139, and lipase of 10. Stool was heme positive. He had a CT scan of the abdomen and pelvis describing gallstones and possible proctitis. IMPRESSION: The patient is a 63-year-old male presenting from the residential with evidence of melena and markedly elevated liver enzyme with severe coagulopathy. At the present time he does not show any signs of active bleeding and his abdominal exam is benign. In regard to the patient's presentation with the markedly elevated liver enzyme and coagulopathy, I suspect this is related to a component of shock liver due to his hypotension. His obtunded mental status could certainly be related to hepatic encephalopathy as well, and an ammonia level will be checked. His imaging studies do not seem to indicate any type of biliary obstruction or liver mass that would account for the markedly elevated liver enzyme and coagulopathy. In this regard, I would give him IV vitamin K, FFP, and supportive care. Any source of sepsis should be investigated and treated accordingly in regard to reversing the hypotension and sepsis type picture with the elevated lactic acid. I would check hepatitis A, B, and C studies to rule out any possibility of viral hepatitis, albeit unlikely. He should not be placed on any hepatotoxic drugs. In regard to the evidence of upper gastrointestinal bleeding, this most likely reflects bleeding from gastritis, esophagitis, and/or even ulcer disease that has been exacerbated by his severe coagulopathy. At this point, I do not see any signs of active bleeding and given his overall state, I will hold off an endoscopy for the time being. I would start him on IV PPI infusion, and continue supportive care with vitamin K and FFP. I would give him packed red blood cells as needed as well. I would not recommend an upper endoscopy at this time unless there are signs of an urgent need for that with active bleeding and the family is agreeable to that as well. Given the patient's age, multiple comorbidities, and the current clinical picture, I would think his prognosis is quite poor. Thank you for the consultation. MD GERMAINE Quintanilla/DOMINICK / [id number]
--- NOTE | 2024-04-13 06:57 | P.DN_ITS ---
Discharge Sum: Prov Provider Primary care physician: Tyrone Ibarra MD Consults: 04/12/24 01:34 Consult to Gastroenterology Routine Consulting Provider: Indra Cameron Reason for consultation: GI bleed 04/12/24 01:40 Consult to Pulmonology Routine Consulting [place] [facility] [place] [facility] Reason for consultation: bilateral ggo Discharge Sum: Diag Contributing Factors (1) Acute hepatic encephalopathy: Discharge Sum: Summary Date and Time Date of admission: from initial hpi: 63-year-old male with pertinent history of CVA on Eliquis, alcohol use disorder, insulin-dependent diabetes mellitus with neuropathy, hypertension, mood disorder, BPH, chronic opioid use who was brought to the emergency department for evaluation of altered mentation. Patient is a resident [place] [facility] and was sent for evaluation of altered mentation. Patient was seen eating a chocolate bar containing mushroom and initial thought was that altered mentation was due to that. Upon further history, family endorsed alcohol use and patient's ammonia level was checked which was elevated at 260. He was also found to be anemic and with elevated transaminases, kidney function. Stool occult tested positive for blood. Upon inserting of NG tube about 1 L bloody gastric content obtained. He was given empiric IV antibiotics, initiated on IV Protonix and IV octreotide and given 2 unit PRBC in the ER. Also received vitamin K and PCC in the ER. Was placed on 5 L supplemental oxygen and imaging was concerning for bilateral pneumonia. Case was discussed with poison control and did not think that chocolate containing mushroom mood cause encephalopathy and elevated transaminases. Patient only withdraws to painful stimulus at the time of my evaluation. Not responding to verbal stimulus. Unable to obtain history or review of systems. hospital course: And was admitted for acute metabolic encephalopathy, severe sepsis, acute hypoxic respiratory failure, acute hepatic encephalopathy, acute kidney injury, acute blood loss anemia from upper GI bleed, severe protein calorie malnutrition due to chronic pancreatitis from alcohol dependence, Gram-positive bacteremia, acute metabolic acidosis. Initially patient was treated conservatively with PPI, octreotide, IV fluids, packed RBCs, IV Unasyn, lactulose via NG tube. Patient's condition continued to decline, discussion was had with family and healthcare proxy and decision made to make patient comfort measures only. Patient on 04/13/2024 at 01:00. Date of : 04/13/24 Additional Data Attending physician: Godfrey Jaeger MD
--- OUTSIDE RECORDS SUMMARY | 2024-04-13 07:46 | XMS_ITS | Data Portability ---
Author Organization [facility], Main Office Address [address] [place] [address] Care Team Providers Care Nutritional Health Coach Name Role Phone STACY GUTIERREZ - 2ND FLOOR OTHER Assessment No assessment recorded. Plan of Treatment Reminders Order Date Submit Date Provider Last Modified By Organization Details Last Modified Time Details Appointments None record ed. Lab None record ed. Referral None record ed. Procedures None record ed. Surgeries None record ed. Imaging None record ed. Medication Orders None record ed. Patient TargetsNo targets recorded. Patient InstructionsNo instructions recorded. Reason for Referral None Reported. 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 5 15:24:06 Diarrhea 42720584 Active 2024 Ghazal Perez NP [address], [address], [place], [address], [facility] 5 15:24:18 Chronic pancreatitis 595813796 Active 2024 Ghazal Perez NP [address], [address], [place], [address], [facility] 5 15:24:29 Retention of urine 801460845 Active 2024 Ghazal Perez NP [address], [address], [place], [address], [facility] 5 15:24:41 Urinary tract infectious disease 60291820 Active 2024 Ghazal Perez NP [address] [facility], [address], [place], [address], [facility] 5 15:24:48 Type 2 diabetes mellitus 28982856 Active 2024 Ghazal Perez NP [address], [address], [place], [address], [facility] 5 15:25:00 Alteration in nutrition: less than body requirements 82527769 Active 2024 Ghazal Perez NP [address], [address], [place], [address], [facility] 5 15:26:32 Hypertensive disorder 20856492 Active 2024 Ghazal Perez NP [address] [facility], [address], [place], [address], [facility] 5 15:26:41 Neuropathy 918575194 Active 2024 Ghazal Perez NP [address] [facility], [address], [place], [address], [facility] 5 15:26:56 Cerebrovascula r accident 323365555 Active 2024 Ghazal Perez NP [address] [facility], [address], [place], [address], [facility] 5 15:27:06 Asthenia 60122609 Active 2024 Ghazal Perez NP [address] [facility], [address], [place], [address], [facility] 5 15:27:29 Chronic pain 32496174 Active 2024 Ghazal Perez NP [address], [place], [address], [facility] 5 15:27:37 Spinal stenosis of lumbar region 78492892 Active 2024 Ghazal Perez NP [address], [place], [address], [facility] 5 15:29:34 Anemia 003659699 Active 2024 Ghazal Perez NP [address] [facility], [address], [place], [address], [facility] 5 00:10:35 Alcohol dependence 88773027 Active 2024 Tyrone Ibarra MD [address] [facility], [address], [place], [address], [facility] 5 09:41:47 Problem Notes None recorded. Medical Equipment None Reported. Allergies No known drug allergies Medications Name Sig Start Date Stop Date Status Note LastModified by Organization Details LastModified Time Soma 350 mg tablet 1 tab Po QID 03/29/19 25 active Not Available Not Available Not Avai lable Vitals Date Recorded Heart rate Respiratory rate Oxygen saturation Oxygen saturation in Arterial blood by Pulse oximetry Systolic blood pressure Diastolic blood pressure Provider Name and Address Organization Details Last Updated DateTime 5 60 /min 14 /min 91 % 91 % 89 mm[Hg] 60 mm[Hg] Ghazal Perez NP [address] [facility], [address], [place], [address], [facility] 5 08:43:51 Date Recorded Body weight Heart rate Respiratory rate Body temperature Oxygen saturation Oxygen saturation in Arterial blood by Pulse oximetry Systolic blood pressure Diastolic blood pressure Provider Name and Address Organization Details Last Updated DateTime 5 90667.5 9 g 91 /min 18 /min 97.2 [degF] 97 % 97 % 124 mm[Hg] 86 mm[Hg] Ghazal Perez NP [address] [facility], [address], [place], [address], [facility] 5 10:21:42 Date Recorded Body weight Heart rate Respiratory rate Body temperature Oxygen saturation Oxygen saturation in Arterial blood by Pulse oximetry Systolic blood pressure Diastolic blood pressure Provider Name and Address Organization Details Last Updated DateTime 5 35367.5 9 g 65 /min 18 /min 97.2 [degF] 95 % 95 % 94 mm[Hg] 56 mm[Hg] Ghazal Perez NP [address] [facility], [address], [place], [address], [facility] 5 12:26:05 Date Recorded Systolic blood pressure Diastolic blood pressure Provider Name and Address Organization Details Last Updated DateTime 04/02/2024 122 mm[Hg] 83 mm[Hg] Tyrone Ibarra MD [address] [facility], [facility] [address], [place], [address], [facility] 04/02/2024 09:27:02 Social History Question Answer Notes LastModified by Organizat ion Details LastModified Time Tobacco Smoking Status Former Smoker Ghazal Perez NP [address] [facility], [facility] [address], [place], [address] 03/31/2024 23:59:16 What Is Your Level Of Alcohol Consumption? Occasional Information not available 03/31/2024 What Was The Date Of Your Most Recent Tobacco Screening? 03/31/2024 Information not available 03/31/2024 Sex: Male Functional Status None recorded. Mental Status None recorded. Family History Nothing Reported Notes:n/c Medical History No medical history recorded. Immunizations Vaccine Type Date Status Note Provider Nam e and Address Organization Details Recorded Time SARS-COV-2 (COVID-19) vaccine, UNSPECIFIED 04/12/[address] [facility], [facility] 03/31/2024 16:12:52 SARS-COV-2 (COVID-19) vaccine, UNSPECIFIED 02/19/2023 [facility] 03/31/2024 16:13:07 SARS-COV-2 (COVID-19) vaccine, UNSPECIFIED 08/23/2023 completed [facility] 03/31/2024 16:13:12 Past Encounters Encounter ID Performer Location Encounter Start Date Encounter Closed Date Diagnosis/Indication Diagnosis SNOMED-CT Code Diagnosis ICD10 Code Diagnosis Note [id number] [facility] [address] 03/30/2024 15:09:58 04/01/2024 10:21:12 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 CT was completed due to concern for potential osteomyeli tis but negative for this or abscess but did note wound. Recommenda tions:1. sacrococcy geal- Cleanse with ph balanced skin cleanser. Pat dry. Apply Triad to wound beds. Cover with Mepilex sacral foam dressing to affected area. Change every 3 days and as needed for soilage/sa turation. If requiring to be changed more often due to incontinen ce episodes, please discontinu e Mepilex dressing but continue use of Triad, increasing the frequency to daily and as needed after incontinen ce.2. Continue use of low air loss mattress3. Continue to turn and reposition every 2 hours and as needed4. Continue to provide incontinen ce care and moisture management as needed5. Continue to offload all bony prominence s6. Continue to float heels off of all surfaces7. Continue to provide optimal nutritiona l support8. Gaymar cushion to seat when/if OOB to chair Asthenia 81567106 R53.1 PT OT eval and treatsuppo rtive caremonito r Chronic pain 48841573 G8 9.29 carisoprod ol 350 mg po qidoxycodo ne 5 mg po q 6hours prn Cerebrovas cular accident 981385221 I63.9 Resume home Eliquis, lipitor Neuropathy 350660250 G62 .9 Resume home duloxetine . PM&R recommende d to increase gabapentin to 500mg PO tid. Hypertensive disorder 38 099531 I10 Resume home lisinopril Alteration in nutrition: less than body requirements 12649131 R63.8 Significan t weight loss recently. Loss of muscle mass.Low albumin? 1 .8.Supplem ents Chon cerda consult Type 2 noe betes mellitus 81572851 E11.21 According to outpatient prescripti ons patient should be on insulin as well as metformin however he is stating that he is taking neither of these medication s as his insulin was not approved by insurance and he states he is acting glipizide at home. Will hold the glipizide while in the hospital and transition to sliding scale insulin and monitor sugars.A1C - is 7.7 on 03/25.? POC's today and bedtime? Sliding scale insulin? Hypoglycem ia emergency measures Urinary tr act infectious disease 03050288 N39.0 Patient with apparent recent diagnosis of urine retention started on tamsulosin and finasterid e as well as Workman catheter. He states that this was back in January but I am not sure where this was diagnosed as it was certainly not here at [facility] as last records previous to this 1 are from 2016. Patient had Workman catheter removed on presentati on but is failing voiding trial and now will replace Workman.? Workman catheter placed? Continue ceftriaxon e, completed prolonged course of 10 days given had Workman catheter in place? urine culture mixed farrukh? Continue finasterid e and tamsulosin ? MRI with thickened bladder and large prostrate with recommenda tion of urology consult. Urology consulted and aware- they have scheduled patient for outpatient followup. Retention of urine 67852 4002 R33.9 see above Chronic pancreatitis 235 202249 K86.1 Patient has noted 2 weeks of frequent diarrhea. He notes that he has been having several bowel movements a day. C. difficile testing performed and negative. Of note patient is supposed to be on pancrelipa se it appears but he states that he has not been taking this medication at home. Potentiall y this is contributi ng to his increase in diarrhea. Have restarted the pancrelipa se and w has had improvemen t in diarrhea with this.? Continue pancrelipa se? Monitor diarrhea Diarrhea 61635071 R19.7 resolved in hospital Spinal moni nosis of lumbar region 49809177 M48.061 carisoprod ol 350 mg po qidmonitor Altered mental status 41 0267811 R41.82 pt with ams and not able to respond, follow commands, or converse with acute change notedvital s boderline with sat 91%, bp 89/60, hr 70also with anemiasend to ER for evaluation of AMS Anemia 932749080 D64.9 pt with acute anemia and amslabs as aboveno obvious s/s of bleedingse nd to ER for eval [id number] Tyrone Ibarra MD [address] [address] 04/02/2024 09:26:19 04/05/2024 09:47:05 Metabolic encephalopathy 43994123 G93.41 see HPIseconda ry to pneumonia and hypoglycem iaimproved with IVF and Abxnow started on metforminm [facility] cquired pneumonia 820941202 Y95 levaquin 750 mg qd to complete courseadd probioticm onitor respirator y status and need for repeat imaging Unstageabl e pressure injury of sacral region of back 0178665697 1026635 L89.152 see HPI with priorRecom mendations :1. sacrococcy geal- Cleanse with ph balanced skin cleanser. Pat dry. Apply Triad to wound beds. Cover with Mepilex sacral foam dressing to affected area. Change every 3 days and as needed for soilage/sa turation. If requiring to be changed more often due to incontinen ce episodes, please discontinu e Mepilex dressing but continue use of Triad, increasing the frequency to daily and as needed after incontinen ce.2. Continue use of low air loss mattress3. Continue to turn and reposition every 2 hours and as needed4. Continue to provide incontinen ce care and moisture management as needed5. Continue to offload all bony prominence s6. Continue to float heels off of all surfaces7. Continue to provide optimal nutritiona l support8. Gaymar cushion to seat when/if OOB to chairwound care to follow monitor sitecurren tly granulatio n tissue at wound bed Asthenia 61276067 R53.1 PT OT eval and treatmonit or fall risk and need for increased support in community Cerebrovas cular accident 024152869 I63.89 maintained oneliquis 5 mg bidlipitor 80 mg qdcontinue d Hypertensive disorder 38 022464 I10 lisinopril 2.5 mg qdmonitor bp and need to titrate Type 2 noe betes mellitus 18114691 E11.42 see above with recent hypoglycem ianow onmetformi n 500 mg bidinsulin discontinu edmonitor blood glucose prn Chronic pancreatitis 235 830351 K86.1 continue out patient medication supdate GI wiht concerns Moderate protein-calorie malnutrition (weight for age 60-74 percent of standard) 208750731 E44.0 dietary evalmonito r PO intake Benign pro static hyperplasia without outflow obstruction 614312062 N40.1 flomax 0.4 mg bidfinaste ride 5 mg qdcontinue dchronic foleyupdat e urology with concerns Alcohol dependence 49348 003 F10.20 recent withdrawal sx in hospital settingmon itor need for increased support in community [id number] Ghazal Perez NP [address] [place] [address] 04/08/2024 08:37:45 04/11/2024 16:30:40 Metabolic encephalopathy 47849792 G93.41 seems to be improving heresecond yaneli to pneumonia and hypoglycem iafelt improved with IVF and Abx in hospitalno w started on metforminm [facility]itor [facility] a cquired pneumonia 884704440 Y95 contlevaqu in 750 mg qd to complete course with probioticm onitor respirator y status and need for repeat imaging Type 2 noe betes mellitus 30914376 E11.42 see above with recent hypoglycem ia in hospitalpt is noncomplia nt with diet and eating large amounts of sugarnow onmetformi n 500 mg bid and BS 96-159 here 5 due to presentati on and lower BS will decrease metformin to 500 mg er dailyinsul in discontinu ed in hospitalmo nitor blood glucose prn Unstageabl e pressure injury of sacral region of back 1056248825 9470032 L89.152 wound team following for sacral wound with local care herewound care to follow monitor sitecurren tly granulatio n tissue at wound bed Asthenia 56269843 R53.1 PT OT eval and treatmonit or fall risk and need for increased support in community Cerebrovas cular accident 854942841 I63.89 maintained oneliquis 5 mg bidlipitor 80 mg qdcontinue d Hypertensive disorder 38 625227 I10 with lower bps here symptomati c with dizziness dc lisinopril 2.5 mg qdmonitor bp and need to reimplemen t Moderate protein-calorie malnutrition (weight for age 60-74 percent of standard) 858439918 E44.0 dietary eval for food choices and noncomplia nce with foodmonito r PO intake Benign pro static hyperplasia without outflow obstruction 164068380 N40.1 contflomax 0.4 mg bidfinaste ride 5 mg qdcontinue dchronic foleyupdat e urology with concerns Chronic pancreatitis 235 042203 K86.1 continue out patient medication supdate GI wiht concerns Alcohol dependence 33502 003 F10.20 recent withdrawal sx in hospital settingmon itor need for increased support in community Dizziness 920931741 R42 pt with dizziness and weakness todayvital s, BS, and labs on 04/03 per hosp [facility] HPI04/08/24 plan:dc lisinopril decrease metformin to 500 mg er qdencourag e po fluidsmoni tor for stool sample to come back with orders in place for vanco if cdif comes back over the weekendcbc bmp mag on tor closely with nursing [id number] Ghazal Perez NP [address] [address] 04/11/2024 12:22:52 04/11/2024 13:01:13 Altered mental status 210248930 R41.82 pt with ams and not able to respond, follow commands, or converse with acute change notedvital s stable bp 94/56 pulse 65, rr 16 BS 121 and o2 95%found with ?candy wrapped with mushrooms on it- states KEEP FROM CHILDREN-u nable to tell what this is without rest of wrapperrec eived glucose get at 1224receiv ed narcan at 1230no response to eithersend to ER for evaluation of AMS Health Concerns Section Related Observation LastModified by Organization Detai ls LastModified Time None Recorded Concern Status LastModified by Organization Details LastModified Time None Recorded Advance Directives Directive None Recorded Payers Encounter Date Sequence Insurance Name Policy Number Policy Ricardo Covered Member ID Ricardo Member ID Guarantor Name 03/30/2024 1 [employer] (MEDICARE REPLACEMENT/A DVANTAGE - PPO) [id number] [facility] [id number] [facility] 04/02/2024 1 [employer] (MEDICARE REPLACEMENT/A DVANTAGE - PPO) [id number] [facility] [id number] [facility] 04/08/2024 1 [employer] (MEDICARE REPLACEMENT/A DVANTAGE - PPO) [id number] [facility] [id number] [facility] 04/11/2024 1 [employer] [facility] (MEDICARE REPLACEMENT/A DVANTAGE - PPO) [id number] Conner Templeton [id number] Conner Templeton Notes Date Note Type Note Provider Name and Address Organization Details Recorded Time 03/30/19 25 text/ht ml Pt is seen for initial intake visit. Pt is a 63-yom with a past medical history of of NSTEMI, previous CVAs, h/o admission for alcohol withdrawal complicated by subarachnoid hemorrhage requiring ICU monitoring, type 2 diabetes, chronic pancreatitis, peripheral neuropathy, hypertension and hyperlipidemia who presented to the hospital from home secondary to new sacral wound that was markedly painful and noted to be malnourished. On exam, pt is seen in his room lethargic and not able to have conversation with this SMALL BRAKE FORM OPERATOR. He is falling asleep and not able to keep his eyes open. During the visit he remains slow to respond, does answer to name, vague and refuses to answer some questions. This SMALL BRAKE FORM OPERATOR consulted with director of corporate sponsorships and nurse who saw him a few hours ago and states he was appropriate and answering questions then. He denies taking any medications from home, denies any pain, or other concerns with a nod- but difficult to tell if he understands. After multiple attempts he states it is March of 2024 and his is at rehab. Nursing states he received an oxycodone 5 mg po at 1200. He has not recieved the soma here as it did not come from pharmacy yet.BS stable at 1627 per nursing. BP boderline 89/60, pulse 70, o2 sat 91 % on room air. Due to acute AMS will send to ER for evaluation.of note: labs back from this am showing 7/22 h/h and low calcium Assumed full code with pt not able to answer Ghazal Perez NP [address] [facility], [address], [place], [address], [facility] 04/01/2024 00:11:49 04/02/19 25 text/ht ml Patient is a 63 yo female admit from hospital after presenting with worsening sacral wound. Patient was evaluated and discharged to SNF however on arrival noted altered mental status returned to ED. Noted hypotension and lethargy with altered mental status on return. Dx with metabolic encephalopathy due to hypoglycemia and pneumonia. Improved with IVF, treated with levaquin. Started on metformin Noted recent episode of ETOH withdrawal and SAH PMH significant forcoccyx woundcad hx MIhx CVAetohdm with neuropathychronic pancreatitishtnhldmalnutrition admit to facility for continued care and therapy eval and treat Tyrone Ibarra MD [address] [facility], [address], [place], [address], [facility] 04/02/2024 09:50:35 04/08/19 25 text/ht diane Prieto is seen for an acute rounding visit. past medical history of of NSTEMI, previous CVAs, h/o admission for alcohol withdrawal complicated by subarachnoid hemorrhage requiring ICU monitoring, type 2 diabetes, chronic pancreatitis, peripheral neuropathy, hypertension and hyperlipidemia He is a 63 yo male admitted from hospital originally 03/20-03/29/24 after presenting with worsening sacral wound and sent to rehab for care. Noted recent episode of ETOH withdrawal and SAH and malnourishment. While at [facility] rehab he was noted altered mental status on 03/30/24 returned to ED for hypotension and lethargy with altered mental status. While in the hospital he was diagnosed with metabolic encephalopathy due to hypoglycemia and pneumonia. Improved with IVF, treated with levaquin. Started on metformin and returned here on 04/04/24. Since back to [facility] he is has had some diarrhea today and has refused breakfast. His vitals are stable from the am and BS at 1100 is 98. He has a large amount of candy at bedside and sodas in his room and noncompliant with diet. On exam,OT working with pt this am and he is having difficulty transitioning from lying to sitting today for more than 2 minutes and seems weak. He states he has some dizziness with sitting. Vitals stable in am. He denies pain, but reports some loose stools. There is some malodor to the stool and sample sent out this am per nursing for cdiff. Vitals done BP lying 106/73 hr 95, sitting 102/74 hr 95, and refuses to stand. RR 18, o2 sat 95 % on ra and Blood sugar 98.Per nursing he refused breakfast because he does not like eggs and nursing will attempt a snack or something else this am besides the sugary snacks in his room. Will get a picture of water and reports he can drink lots of fluids this am.Will get labs and monitor. Ghazal Perez NP [address] [facility], [address], [place], [address], [facility] 04/08/2024 11:32:25 04/11/19 25 text/ht diane Prieto is seen for an acute rounding visit. past medical history of of NSTEMI, previous CVAs, h/o admission for alcohol withdrawal complicated by subarachnoid hemorrhage requiring ICU monitoring, type 2 diabetes, chronic pancreatitis, peripheral neuropathy, hypertension and hyperlipidemia He is seen for AMS with increased lethargy and unresponsiveness. He refused breakfast this am and lab reported BS of 35. He since ate food and as soon BS 89 at 0800, 98 at 11:47 and rechecked at 12:30 and 121. He is found with inability to answer questions, not able to drink from straw, cannot keep eyes open and falls back to sleep. vitals stable. He was given glucose gel this am 12:24 without change followed by narcan at 12:30 without any change. He was found with a partial wrapper with mushrooms on it and difficult to read the wrapper. He is a 63 yo male admitted from hospital originally 03/20-03/29/24 after presenting with worsening sacral wound and sent to rehab for care. Noted recent episode of ETOH withdrawal and SAH and malnourishment. On 03/30/24 while here he returned to ED for hypotension and lethargy with altered mental status. While in the hospital he was diagnosed with metabolic encephalopathy due to hypoglycemia and pneumonia. Improved with IVF, treated with levaquin. Started on metformin and returned here on 04/04/24. Of note: nursing found gummies with tch in his room when searched. Ghazal Perez, MEG [address] [facility], [address], [place], [address], [employer] [facility] 04/11/2024 13:01:11
--- OUTSIDE RECORDS SUMMARY | 2024-04-13 07:46 | XMS_ITS | Clinical Summary ---
Author Organization [facility] Address [address] [place] [address] Care Team Providers Care Marketing Producer Name Role Phone Jhonatan García MD PhD Primary Care Provider + [phone] Allergies No known active allergies Medications Medication Sig Dispensed Refills Start Date End Date Status aspirin 81 MG chewable tablet Chew 1 tablet (81 mg total) daily. Active gabapentin (NEURONTIN) 400 MG capsule Take 1 capsule (400 mg total) by mouth 3 (three) times a day. Active glipiZIDE (GLUCOTROL XL) 2.5 MG 24 hr tablet Take 1 tablet (2.5 mg total) by mouth every morning with breakfast. Active levETIRAcetam (KEPPRA) 250 MG tablet Take 1 tablet (250 mg total) by mouth 2 (two) times a day. Active PANTOprazole (PROTONIX) 40 MG EC tablet Take 1 tablet (40 mg total) by mouth every morning before breakfast. Active tamsulosin (FLOMAX) 0.4 MG capsule Take 1 capsule (0.4 mg total) by mouth daily. Active lisinopril (PRINIVIL,ZeSTRIL) 2.5 MG tablet Take 1 tablet (2.5 mg total) by mouth daily. Active apixaban (ELIQUIS) 5 MG tabletIndications:Oth er acute pulmonary embolism without acute cor pulmonale Take 2 tablets (10 mg total) by mouth every 12 (twelve) hours around the clock. 05/01/2023 Active apixaban (ELIQUIS) 5 MG tabletIndications:Oth er acute pulmonary embolism without acute cor pulmonale Take 1 tablet (5 mg total) by mouth every 12 (twelve) hours around the clock. Do not start before May 04, 2023. 05/04/2023 Active cholecalciferol (VITAMIN D3) 61068 units capsuleIndications:Vi tamin D deficiency Take 1 capsule (50,000 Units total) by mouth once a week. 05/01/2023 Active HYDROmorphone (DILAUDID) 4 MG tabletIndications:Mas s of pancreas Take 1 tablet (4 mg total) by mouth 3 times daily (every 8 hours) as needed for severe pain. Max Daily Amount: 12 mg 05/01/2023 Active magnesium oxide 400 (240 Mg) MG Tab tabletIndications:Hyp omagnesemia Take 1 tablet (400 mg total) by mouth 2 (two) times a day. Take 2 hours apart from other medications; take with food 05/01/2023 Active senna-docusate (SENNA-S) 8.6-50 MGIndications:Mass of pancreas Take 2 tablets by mouth nightly. 05/01/2023 Active Active Problems Problem Noted Date Diagnosed Date Moderate malnutrition (HCC) related to acute on chronic illness; mild-moderate fat wasting to buccal/triceps and mild-moderate muscle wasting to deltoid, pectoralis, temporalis 04/27/2023 Gastric mass 04/23/2023 Dyspepsia 04/23/2023 Pulmonary embolism 04/23/2023 Mass of pancreas 04/23/2023 Gastric outlet obstruction 04/23/2023 CAD (coronary artery disease) 04/23/2023 CHF (congestive heart failure) 04/23/2023 DM (diabetes mellitus) 04/23/2023 Alcohol abuse 04/23/2023 Social History Tobacco Use Types Packs/Day Years Used Date Smoking Tobacco: Never Assessed [facility] Utilities Answer Date Recorded In the past 12 months has [employer], oil, or water [employer] threatened to shut off services in your home? No 04/25/2023 AUDIT-C Answer Date Recorded Q1: How often do you have a drink containing alc ohol? Monthly or less 04/24/2023 Q2: How many drinks containi ng alcohol do you have on a typical day when you are drinking? 3 or 4 04/24/2023 Frequency of Binge Drinking Not on file 04/2023 Overall Financial Resource Strain (CARDIA) Answe r Date Recorded How hard is it for you to pa y for the very basics like food, housing, medical care, and heating? Not hard at all 04/25/2023 PHQ-2 Answer Date Recorded PHQ-2 Total Score 4 04/24/2023 Hunger Vital Sign Answer Date Recorded Within the past 12 months, y ou worried that your food would run out before you got the money to buy more. Never true 04/25/19 24 Within the past 12 months, t he food you bought just didn't last and you didn't have money to get more. Never true 04/25/2023 PRAPARE - Transportation Answer Date Re corded In the past 12 months, has l ack of transportation kept you from medical appointments or from getting medications? No 05/2023 In the past 12 months, has l ack of transportation kept you from meetings, work, or from getting things needed for daily living? No 04/25/2023 Housing Stability Vital Sign Answer Garcia e Recorded In the last 12 months, was t here a time when you were not able to pay the mortgage or rent on time? No 04/25/2023 In the last 12 months, how many places have you lived? 1 04/25/2023 In the last 12 months, was t here a time when you did not have a steady place to sleep or slept in a half-way (including now)? No 04/25/2023 Sex and Gender Information Value Date Recorded Sex Assigned at Male 04/24/2023 2:24 PM EST Gender Identity Male 04/24/2023 2:24 PM EST Sexual Orientation Heterosexual (straight) 04/24 2:24 PM EST Last Filed Vital Signs Vital Sign Reading Time Taken Comments Blood Pressure 135/80 05/01/2023 2:35 PM EST Pulse 88 05/01/2023 2:35 PM EST Temperature 36.5 ??C (97.7 ??F) 05/01/2023 2:35 PM ES T Respiratory Rate 18 05/01/2023 2:3 5 PM EST Oxygen Saturation 99% 05/01/2023 2:35 PM EST Inhaled Oxygen Concentration - - Weight 71.3 kg (157 lb 3 oz) 04/27/2023 11:30 AM EST Height 177.8 cm (5' 10 ) 04/27/2023 3: 00 PM EST pt reported Body Mass Index 22.55 04/27/2023 11:30 AM EST Plan of Treatment Health Maintenance Due Date Last Done Comments Hepatitis C Virus Screening 1958 Foot Exam 1968 Lipid Panel 1968 Ophthalmology Exam 1968 HIV Screening 06/18/1971 Microalbumin/Creatinine Ratio Urine 1976 DTaP/Tdap/Td Vaccines (1 - Tdap) 1977 Pneumococcal Vaccines 50+ (1 of 2 - PCV) 1977 Colonoscopy 06/18/2003 Zoster (Shingles) Vaccine (1 of 2) 2008 RSV Vaccine 60 years and older and Patients (1 - Risk 60-74 years 1-dose series) 2018 Hemoglobin A1C 10/23/2023 04/24/2023, 02/04/2023, 04/24/2023 COVID-19 Vaccine ( season) 2023 08/23/2023, 04/12/2020 Creatinine with GFR 05/01/2024 05/01/2023, 04/30/2023, 04/29/2023, Additional history exists Influenza Vaccine Completed 12/27/2023 Hepatitis B Vaccines Aged Out No long er eligible based on patient's age to complete this topic Procedures Procedure Name Priority Date/Time Associated Diagnosis Comments BASIC METABOLIC PANEL Routine 05/01/2023 8:13 AM EST HEMOGLOBIN A1C WITH ESTIMATED AVERAGE GLUCOSE Routine 04/24/2023 12:03 AM EST from Last 3 Months or Most Recently Relevant to Health Maintenance Results * (ABNORMAL) BASIC METABOLIC PANEL (05/01/2023 8:13 AM EST) [facility] Glucose 76 65 - 99 mg/dL 05/01/2023 10:12 AM [facility] Comment:Fasting: <100 mg/dL, Non-Fasting: <200 mg/dL (ADA 2005) Blood Urea Nitrogen (BUN) 9 8 - 21 mg/dL 05/01/2023 10:12 AM [facility] Creatinine 0.5 0.5 - 1.3 mg/dL 05/01/2023 10:12 AM [facility] eGFR >90 >59 05/01/2023 10:12 AM [facility] Comment:CKD-EPI (2020) in mL /min/1.73 sq meters. Sodium 140 136 - 145 mmol/L 05/01/2023 10:12 AM [facility] Potassium 4.4 3.4 - 5.3 mmol/L 05/01/2023 10:12 AM [facility] Chloride 106 98 - 107 mmol/L 05/01/2023 10:12 AM [facility] CO2 29 22 - 33 mmol/L 05/01/2023 10:12 AM [facility] Anion Gap 5(L) 7 - 17 05/01/2023 10:12 AM [facility] Calcium 7.8(L) 8.7 - 10.5 mg/dL 05/01/2023 10:12 AM [facility] BUN/Creatinine Ratio 18 10.0 - 25.0 Ratio 05/01/2023 10:12 AM [facility] Blood specimen (specimen) (Plasma/Serum) 05/01/2023 8:13 AM EST 05/01/2023 9:48 AM EST Augie Li MD [place] [address], [place] [address] * (ABNORMAL) HEMOGLOBIN A1C WITH ESTIMATED AVERAGE GLUCOSE (04/24/2023 12:03 AM EST) Hemoglobin A1C 7.9(H) <5.7 % 04/24/2023 3:58 AM [facility] Comment: A1c% ? Interpretation 5.7 - 6.0 ?Increase risk of diabetes 6.1 - 6.4 ?Higher risk of diabetes > or = 6.5 ?? Consistent with diabetes Diabetes Care, 33(Supp 1):S1-S61, 2010 Estimated Average Glucose 180 mg/dL 04/24/2023 3:58 AM [facility] Blood specimen / Unknown 04/24/2023 12:03 AM EST 04/24/2023 1:35 AM EST Ramon García MD LAB BLOOD ORDERABLES [facility] [address] [place] [address], [facility] [address] [place] [address] from Last 3 Months or Most Recently Relevant to Health Maintenance Advance Directives * Full Code (Latest Code Status on File) Date Activated Date Inactivated Comments 04/23/2023 10:14 PM Care Teams Marketing Producer Relationship Specialty Start Date End Date Jhonatan García MD PhD [address] [place] [address] PCP - General Internal Medicine 04/24/23
--- OUTSIDE RECORDS SUMMARY | 2024-04-13 07:46 | XMS_ITS | Encounter Summary ---
Author Organization [facility] Address [address] [place] [address] Care Team Providers Care Medical Microbiologist Name Role Phone Tyrone Ibarra MD Primary Care Provider [phone] Encounter Details Date Type Department Care Team (Late st Contact Info) Description 04/11/2024 Lab Requisition [facility] - Main Lab [address] [facility] [place] [address] Tyrone Ibarra MD [address] [place] [address] [address] [place], [phone] Cerebral infarction, unspecified (CMS/HCC) Social History Tobacco Use Types Packs/Day Years Used Date Smoking Tobacco: Former Smokeless Tobacco: Never Alcohol Use Standard Drinks/Week Comments Yes 2 (1 standard drink = 0.6 oz pur e alcohol) Sex and Gender Information Value Date Recorded Sex Assigned at Not on file Gender Identity Not on file Sexual Orientation Not on file Job Start Date Occupation Industry Not on file Not on file Not on file documented as of this encounter Plan of Treatment Not on file documented as of this encounter Procedures Procedure Name Priority Date/Time Associated Diagnosis Comments COMPLETE BLOOD COUNT Routine 04/11/2024 5:05 AM EST Cerebral infarction, unspecified (CMS/HCC) MAGNESIUM Routine 04/11/2024 5:05 AM EST Cerebral infarction, unspecified (CMS/HCC) BASIC METABOLIC PANEL Routine 04/11/2024 5:05 AM EST Cerebral infarction, unspecified (CMS/HCC) documented in this encounter Results * (ABNORMAL) Magnesium (04/11/2024 5:05 AM EST) Pathologist [facility] Magnesium 1.3(L) 1.9 - 2.6 mg/dL LAB CHEMISTRY METHOD 04/11/2024 11:38 AM EST [facility] Blood Venous blood specimen / Unknown Venipuncture / Unknown 04/11/2024 5:05 AM EST 04/11/2024 10:40 AM EST Tyrone Ibarra MD LAB BLOOD ORDERABLES [facility] [address] [place] [address], * (ABNORMAL) Basic metabolic panel (04/11/2024 5:05 AM EST) [facility] Sodium 142 133 - 145 mmol/L LAB CHEMISTRY METHOD 04/11/2024 11:52 AM [facility] Potassium 4.6 3.5 - 5.5 mmol/L LAB CHEMISTRY METHOD 04/11/2024 11:52 AM [facility] Chloride 107 96 - 110 mmol/L LAB CHEMISTRY METHOD 04/11/2024 11:52 AM [facility] CO2 25 21 - 32 mmol/L LAB CHEMISTRY METHOD 04/11/2024 11:52 AM [facility] Anion Gap 10 3 - 11 LAB CHEMISTRY METHOD 04/11/2024 11:52 AM [facility] Glucose 35(LL) 70 - 100 mg/dL LAB CHEMISTRY METHOD 04/11/2024 11:52 AM [facility] BUN 23 5 - 25 mg/dL LAB CHEMISTRY METHOD 04/11/2024 11:52 AM [facility] Creatinine 1.68(H) 0.70 - 1.30 mg/dL LAB CHEMISTRY METHOD 04/11/2024 11:52 AM [facility] eGFR 45(L) >=60 mL/min/1. 73m2 LAB CHEMISTRY METHOD 04/11/2024 11:52 AM [facility] Comment:Calculation based on the??Chronic Kidney Disease Epidemiology Collaboration (CKD-EPI) equation refit??without adjustment for race. BUN/Creatinine Ratio 13.7 LAB CHEMISTRY METHOD 04/11/2024 11:52 AM [facility] Calcium 7.1(L) 8.5 - 10.5 mg/dL LAB CHEMISTRY METHOD 04/11/2024 11:52 AM [facility] Blood Venous blood specimen / Unknown Venipuncture / Unknown 04/11/2024 5:05 AM EST 04/11/2024 10:40 AM EST Tyrone Ibarra MD LAB BLOOD ORDERABLES [facility] [address] [place] [address], * (ABNORMAL) Complete blood count (04/11/2024 5:05 AM EST) WBC 9.0 4.8 - 10.8 K/mcL LAB HEMETOLOGY METHOD 04/11/2024 11:18 AM [facility] RBC 2.50(L) 4.50 - 5.50 M/mcL LAB HEMETOLOGY METHOD 04/11/2024 11:18 AM [facility] Hemoglobin 7.9(L) 13.5 - 17.5 g/dL LAB HEMETOLOGY METHOD 04/11/2024 11:18 AM [facility] Hematocrit 22.7(L) 42.0 - 54.0 % LAB HEMETOLOGY METHOD 04/11/2024 11:18 AM [facility] MCV 92.7 79.0 - 98.0 FL LAB HEMETOLOGY METHOD 04/11/2024 11:18 AM EST [facility] MCH 32.2(H) 27.0 - 32.0 pcg LAB HEMETOLOGY METHOD 04/11/2024 11:18 AM [facility] MCHC 34.8 32.0 - 37.0 g/dL LAB HEMETOLOGY METHOD 04/11/2024 11:18 AM EST [facility] RDW 16.5(H) 11.0 - 15.0 % LAB HEMETOLOGY METHOD 04/11/2024 11:18 AM EST [facility] Platelets 176 130 - 400 K/mcL LAB HEMETOLOGY METHOD 04/11/2024 11:18 AM [facility] MPV 10.2 7.0 - 11.0 FL LAB HEMETOLOGY METHOD 04/11/2024 11:18 AM EST [facility] NRBC 0.0 <1.0 % LAB HEMETOLOGY METHOD 04/11/2024 11:18 AM [facility] NRBC Absolute 0.00 <0.10 K/mcL LAB HEMETOLOGY METHOD 04/11/2024 11:18 AM [facility] Blood Venous blood specimen / Unknown Venipuncture / Unknown 04/11/2024 5:05 AM EST 04/11/2024 10:40 AM EST Tyrone Ibarra MD LAB BLOOD ORDERABLES [facility] [address] [phone] documented in this encounter Visit Diagnoses Diagnosis Cerebral infarction, unspecified (CMS/HCC) documented in this encounter Care Teams Medical Microbiologist Relationship Specialty Start Date End Date Tyrone Ibarra MD [address] [place] [phone] PCP - General Family Medicine 04/11/24 documented as of this encounter
--- OUTSIDE RECORDS SUMMARY | 2024-04-13 07:46 | XMS_ITS | Encounter Summary ---
Author Organization [facility] Address [address] [place] [address] Care Team Providers Care Brick Maker Name Role Phone Tyrone Ibarra MD Primary Care Provider [phone] Encounter Details Date Type Department Care Team (Late st Contact Info) Description 04/08/2024 Lab Requisition [facility] - Main Lab 299 [facility] [place] [phone] Tyrone Ibarra MD [address] [place] [address] [address] [place], [phone] Diarrhea, unspecified Social History Tobacco Use Types Packs/Day Years [...] Procedure Name Priority Date/Time Associated Diagnosis Comments CLOSTRIDIUM DIFFICILE TOXIN Routine 04/07/2024 9:30 PM EST Diarrhea, unspecified documented in this encounter Results * Clostridium difficile toxin (04/07/2024 9:30 PM EST) Clostridium difficile GDH Antigen Negative Negative 04/08/2024 11:27 AM EST [facility] C difficile Toxins A+B, EIA Negative Negative 04/08/2024 11:27 AM EST [facility] Comment:NEGATIVE FOR TOXIN P RODUCING CLOSTRIDIOIDES DIFFICILE, NO ADDITIONAL TESTING IS NECESSARY. Stool Rectum structure / Unknown Non-blood Collection / Unknown 04/07/2024 9:30 PM EST 04/08/2024 9:44 AM EST Tyrone Ibarra MD LAB MICROBIOLOGY - G ENERAL ORDERABLES [facility] [address] [place] [address], documented in this encounter Visit Diagnoses Diagnosis Diarrhea, unspecified documented in this encounter Additional Health Concerns Infection Onset Date Last Indicated Resolved Time C. Diff Rule-Out Infection 04/08/2024 04/07/2024 0 04/08/2024 11:27 AM EST documented as of this encounter Care Teams Brick Maker Relationship Specialty Start Date End Date Tyrone Ibarra MD [address], [phone] PCP - General Family Medicine 04/11/24 documented as of this encounter
--- OUTSIDE RECORDS SUMMARY | 2024-04-13 07:46 | XMS_ITS | Encounter Summary ---
Author Organization [facility] Address [address] [place] [address] Care Team Providers Care Sales And Marketing Executive Name Role Phone Tyrone Ibarra MD Primary Care Provider [phone] Encounter Details Date Type Department Care Team (Latest Contact Info) Description 03/30/2024 Lab Requisition [facility] - Main Lab [address] [facility] [place] [address] Tyrone Ibarra MD [address] [place] [address], [phone] Encounter for screening for malignant neoplasm of prostate; Other specified polyneuropathies Social History Tobacco Use Types Packs/Day Years [...] Associated Diagnosis Comments COMPLETE BLOOD COUNT Routine 03/30/2024 7:42 AM EST Encounter for screening for malignant neoplasm of prostate Other specified polyneuropathies COMPREHENSIVE METABOLIC PANEL Routine 03/30/2024 7:42 AM EST Encounter for screening for malignant neoplasm of prostate Other specified polyneuropathies documented in this encounter Results * (ABNORMAL) Comprehensive metabolic panel (03/30/2024 7:42 AM EST) Sodium 136 133 - 145 mmol/L LAB CHEMISTRY METHOD 03/30/2024 12:04 PM [facility] Potassium 4.9 3.5 - 5.5 mmol/L LAB CHEMISTRY METHOD 03/30/2024 12:04 PM [facility] Chloride 102 96 - 110 mmol/L LAB CHEMISTRY METHOD 03/30/2024 12:04 PM [facility] CO2 32 21 - 32 mmol/L LAB CHEMISTRY METHOD 03/30/2024 12:04 PM [facility] Anion Gap 2(L) 3 - 11 LAB CHEMISTRY METHOD 03/30/2024 12:04 PM [facility] Glucose 110(H) 70 - 100 mg/dL LAB CHEMISTRY METHOD 03/30/2024 12:04 PM [facility] BUN 23 5 - 25 mg/dL LAB CHEMISTRY METHOD 03/30/2024 12:04 PM [facility] Creatinine 0.51(L) 0.70 - 1.30 mg/dL LAB CHEMISTRY METHOD 03/30/2024 12:04 PM [facility] eGFR 113 >=60 mL/min/1. 73m2 LAB CHEMISTRY METHOD 03/30/2024 12:04 PM [facility] Comment:Calculation based on the??Chronic Kidney Disease Epidemiology Collaboration (CKD-EPI) equation refit??without adjustment for race. BUN/Creatinine Ratio 45.1 LAB CHEMISTRY METHOD 03/30/2024 12:04 PM [facility] Calcium 7.8(L) 8.5 - 10.5 mg/dL LAB CHEMISTRY METHOD 03/30/2024 12:04 PM [facility] AST (SGOT) 22 10 - 42 unit/L LAB CHEMISTRY METHOD 03/30/2024 12:04 PM [facility] ALT (SGPT) 16 10 - 60 unit/L LAB CHEMISTRY METHOD 03/30/2024 12:04 PM [facility] Alkaline Phosphatase 131(H) 42 - 121 unit/L LAB CHEMISTRY METHOD 03/30/2024 12:04 PM [facility] Total Protein 3.8(L) 6.0 - 8.0 g/dL LAB CHEMISTRY METHOD 03/30/2024 12:04 PM [facility] Albumin 1.3(L) 3.2 - 5.0 g/dL LAB CHEMISTRY METHOD 03/30/2024 12:04 PM [facility] Total Bilirubin 0.3 0.0 - 1.4 mg/dL LAB CHEMISTRY METHOD 03/30/2024 12:04 PM [facility] Blood Venous blood specimen / Unknown Venipuncture / Unknown 03/30/2024 7:42 AM EST 03/30/2024 10:42 AM EST Tyrone Ibarra MD LAB BLOOD ORDERABLES [facility] [address] [place] [address], * (ABNORMAL) Complete blood count (03/30/2024 7:42 AM EST) WBC 5.2 4.8 - 10.8 K/mcL LAB HEMETOLOGY METHOD 03/30/2024 11:24 AM [facility] RBC 2.30(L) 4.50 - 5.50 M/mcL LAB HEMETOLOGY METHOD 03/30/2024 11:24 AM [facility] Hemoglobin 7.5(L) 13.5 - 17.5 g/dL LAB HEMETOLOGY METHOD 03/30/2024 11:24 AM [facility] Hematocrit 22.5(L) 42.0 - 54.0 % LAB HEMETOLOGY METHOD 03/30/2024 11:24 AM [facility] MCV 99.1(H) 79.0 - 98.0 FL LAB HEMETOLOGY METHOD 03/30/2024 11:24 AM [facility] MCH 33.0(H) 27.0 - 32.0 pcg LAB HEMETOLOGY METHOD 03/30/2024 11:24 AM EST [facility] MCHC 33.3 32.0 - 37.0 g/dL LAB HEMETOLOGY METHOD 03/30/2024 11:24 AM [facility] RDW 16.2(H) 11.0 - 15.0 % LAB HEMETOLOGY METHOD 03/30/2024 11:24 AM [facility] Platelets 282 130 - 400 K/mcL LAB HEMETOLOGY METHOD 03/30/2024 11:24 AM EST [facility] MPV 9.7 7.0 - 11.0 FL LAB HEMETOLOGY METHOD 03/30/2024 11:24 AM [facility] NRBC 0.0 <1.0 % LAB HEMETOLOGY METHOD 03/30/2024 11:24 AM [facility] NRBC Absolute 0.00 <0.10 K/mcL LAB HEMETOLOGY METHOD 03/30/2024 11:24 AM [facility] Blood Venous blood specimen / Unknown Venipuncture / Unknown 03/30/2024 7:42 AM EST 03/30/2024 10:42 AM EST Tyrone Ibarra MD LAB BLOOD ORDERABLES [facility] [address] [place] [address], documented in this encounter Visit Diagnoses Diagnosis Encounter for screening for malignant neoplasm of prostate Other specified polyneuropathies documented in this encounter Additional Health Concerns Infection Onset Date Last Indicated Resolved Time C. Diff Rule-Out Infection 04/08/2024 04/07/2024 0 04/08/2024 11:27 AM EST documented as of this encounter Care Teams Sales And Marketing Executive Relationship Specialty Start Date End Date Tyrone Ibarra MD [address] [place] [address] [address] [place], [phone] PCP - General Family Medicine 04/11/24 documented as of this encounter
--- NOTE | 2024-04-13 07:47 | PC.NURSE ---
Late documentation,This RN assumed care of pt at 1900 on 04/12/24. Pt was with family, paralegal legal secretary, patient cleaned turned and repositioned Q2H. Medium loose bm. Pt elevated respirations, decreased spo2, HR 110's. Pt medicated with IV PRN medication. This RN and tech at bedside with pt at time of passing, notified of asystole HR. called time of at 0100. End of life care provided, Neds notified and declined, confirmation #[id number].
--- OUTSIDE RECORDS SUMMARY | 2024-04-13 07:47 | XMS_ITS | Encounter Summary ---
Author Organization [facility] Address [address] [place] [address] Care Team Providers Care Quality Tech Name Role Phone Jhonatan García MD Primary Care Provider [phone] Reason for Visit * Reason Onset Date Comments Actionable Finding 05/05/2023 Encounter Details Date Type Department Care Team (Late st Contact Info) Description 05/05/2023 Telephone [facility] - Actionable Findings [address] [place] [address] Caren Ordaz RN Actionable Finding Social History Tobacco Use Types Packs/Day Years Used Date Smoking Tobacco: Never Smokeless Tobacco: Never Alcohol Use Standard Drinks/Week Comments Not Currently 0 (1 standard drink = 0.6 oz pur e alcohol) Sex and Gender Information Value Date Recorded Sex Assigned at Male 05/25/2023 1:14 PM EST Legal Sex Male 3:36 AM EDT Gender Identity Not on file Sexual Orientation Not on file documented as of this encounter Miscellaneous Notes * Telephone Encounter - Caren Ordaz RN - 05/05/2023 1:41 PM EST Actionable finding review of CT Date of scan: 04/18/23 Location of scan: [place] Actionable Findings performed a review of radiology result(s). Arely Montano RNassociate professor of physics at [phone] documented in this encounter Plan of Treatment Upcoming Encounters Date Type Department Care Team (Late st Contact Info) Description 04/18/2024 1:00 PM EST [facility] [address] [place] [address] Gerber Alvarenga MD [address] [place] [address] 05/18/2024 9:30 AM EST Office Visit [facility] [place] [address] [place] [address] Marybeth Nieto, OD [address] [place] [address] documented as of this encounter Visit Diagnoses Not on filedocumented in this encounter Care Teams Quality Tech Relationship Specialty Start Date End Date Jhonatan García MD [address] [place] [address] PCP - General Internal Medicine 02/20/23 documented as of this encounter
--- OUTSIDE RECORDS SUMMARY | 2024-04-13 07:47 | XMS_ITS | Encounter Summary ---
Author Organization [facility] Address [address] [place] [address] Care Team Providers Care Ecologist Name Role Phone Jhonatan García MD Primary Care Provider [phone] Encounter Details Date Type Department Care Team (Late st Contact Info) Description 04/08/2024 Telephone [facility] [address] [place] [address] Telephone Intake, Staff Social History Tobacco Use Types Packs/Day Years Used Date Smoking Tobacco: Never Smokeless Tobacco: Never Alcohol Use Standard Drinks/Week Comments Not Currently 0 (1 standard drink = 0.6 oz pur e alcohol) no use since dec 2022 Sex and Gender Information Value Date Recorded Sex Assigned at Male 05/25/2023 1:14 PM EST Legal Sex Male 3:36 AM EDT Gender Identity Not on file Sexual Orientation Not on file documented as of this encounter Miscellaneous Notes * Telephone Encounter - Amanda Coleman - 04/08/2024 3:31 PM EST Patient discharged from rehab on 01/17/24, asked if she had updated contact information for the patient, and she did not have any contact information. Thank you. * Telephone Encounter - Tao Garcia MA - 04/08/2024 2:20 PM EST [facility] to reach patient[facility]ist stated patient does not show up in her system. She transferred me to Elly the social welfare research worker there but unable to be reached. LVM wanting to know if patient still resides there and if she could give me a call back. Patient needs labs drawn prior to appt on 04/18/24. documented in this encounter Plan of Treatment Upcoming Encounters Date Type Department Care Team (Late st Contact Info) Description 04/18/2024 1:00 PM EST Follow-Up [facility] [address] [place] [address] Gerber Alvarenga MD [address] [place] [address] 05/18/2024 9:30 AM EST Office Visit [facility] [place] [address] [place] [address] Marybeth Nieto P, OD [address] [place] [phone] documented as of this encounter Visit Diagnoses Not on filedocumented in this encounter Care Teams Ecologist Relationship Specialty Start Date End Date Jhonatan García MD [address] [place] [phone] PCP - General Internal Medicine 02/20/23 documented as of this encounter
--- OUTSIDE RECORDS SUMMARY | 2024-04-13 07:47 | XMS_ITS | Encounter Summary ---
Author Organization [facility] Address [address] [place] [address] Care Team Providers Care Vp Public Relations Name Role Phone Jhonatan García MD Primary Care Provider [phone] Encounter Details Date Type Department Care Team (Late st Contact Info) Description 08/24/2023 Orders Only [facility] [address] [place] [address] Richard Fuller MD [address] [place] [address] Social History Tobacco Use Types Packs/Day Years [...] as of this encounter Plan of Treatment Upcoming Encounters Date Type Department Care Team (Late st Contact Info) Description 04/18/2024 1:00 PM EST Follow-Up [facility] [address] [place] [address] Gerber Alvarenga MD [address] [place] [address] 05/18/2024 9:30 AM EST Office Visit [facility] [place] [address] [place] [address] Marybeth Nieto P, OD [address] [place] [address] documented as of this encounter Visit Diagnoses Not on filedocumented in this encounter Care Teams Vp Public Relations Relationship Specialty Start Date End Date Jhonatan García MD [address] [place] [phone] PCP - General Internal Medicine 02/20/23 documented as of this encounter
--- OUTSIDE RECORDS SUMMARY | 2024-04-13 07:47 | XMS_ITS | Referral Summary ---
Author Organization [facility] Address [address] [place] [address] Care Team Providers Care Disability Insurance Hearing Officer Name Role Phone Jhonatan García MD Primary Care Provider [phone] Encounters Date Type Department Care Team Description 04/08/[address] [address] Telephone Intake, Staff 01/13/2024 Telephone [facility] [address] [place] [id number] Stars Specialist: Zay Kim MD from Last 3 Months Allergies No known active allergies Medications bisacodyL (DULCOLAX) 10 mg suppository Insert 10 mg into the rectum daily as needed for constipation. --IF MILK OF MAG SUSP INEFFECTIVE 04/03/19 24 Active folic acid (FOLVITE) 1 mg tablet Take 1 mg by mouth in the morning. 04/04/19 24 Active glucagon 1 mg injection Inject 1 mg into the shoulder, thigh, or buttocks muscle as directed daily as needed (--HYPOGLYCEMIC REACTION). 04/03/19 24 Active levETIRAcetam (KEPPRA) 250 mg tablet Take 250 mg by mouth 2 times a day. 04/03/19 24 Active magnesium hydroxide (MILK OF MAGNESIA) 400 mg/5 mL suspension Take 30 mL by mouth daily as needed for constipation. --USE 1ST 04/03/19 24 Active tamsulosin (FLOMAX) 0.4 mg capsule Take 0.4 mg by mouth every night. 04/03/19 24 Active dextrose/dextrin /maltose (INSTA-GLUCOSE, WITH DEXTRIN, ORAL) Take by mouth daily as needed (BLOOD GLUCOSE <60). --77.4% DEXTROSE Active naloxone HCl (Narcan) 4 mg/actuation nasal spray Administer 4 mg into affected nostril(s) daily as needed (OPIOID REVERSAL). Instill the contents of 1 unit intranasally for suspected opioid overdose. Repeat after 3 minutes if no or minimal response. Active gabapentin (NEURONTIN) 100 mg capsule Take 2 capsules (200 mg total) by mouth every 8 hours. 04/23/19 24 Active lisinopriL (PRINIVIL,ZESTRI L) 10 mg tablet Take 1 tablet (10 mg total) by mouth once a day. 04/24/[address] (PROTONIX) 40 mg tablet Take 1 tablet (40 mg total) by mouth every 12 hours. 04/23/19 24 Active calcium carbonate (TUMS) 200 mg calcium (500 mg) chewable tablet Chew and swallow 1 tablet (500 mg total) by mouth every 6 hours as needed for indigestion or heartburn. 04/23/19 24 Active enoxaparin (LOVENOX) 80 mg/0.8 mL subcutaneous injection Inject 0.8 mL (80 mg total) under the skin every 12 hours. 04/23/19 24 Active HYDROmorphone PF (DILAUDID) 1 mg/mL injection Infuse 1 mL (1 mg total) intravenously every 3 hours as needed for pain (Severe pain). 0 04/23/19 24 Active ipratropium-albu teroL (DUO-NEB) 0.5-2.5 mg/3 mL nebulizer solution Inhale 3 mL via nebulizer every 4 hours as needed for wheezing or shortness of breath. 04/23/19 24 Active lactobacillus acidophilus-L. bulgaricus (FLORANEX) 1 million cell tablet Take 1 tablet by mouth 2 times a day. 04/24/19 24 Active LORazepam (ATIVAN) 2 mg/mL injection Infuse 0.5 mL (1 mg total) intravenously every 6 hours as needed for anxiety (Nausea and vomiting). 1 mL 04/23/19 24 Active metoprolol tartrate (LOPRESSOR) 25 mg tablet Take 1 tablet (25 mg total) by mouth every 12 hours. 04/23/19 24 Active ondansetron (ZOFRAN) 4 mg/2 mL injection Infuse 2 mL (4 mg total) intravenously every 8 hours as needed for nausea or vomiting. 20 mL 04/23/19 24 Active acetaminophen (TYLENOL) 325 mg tablet Take 650 mg by mouth every 6 hours as needed for pain. Active apixaban (ELIQUIS) 5 mg tablet Take 5 mg by mouth 2 times daily. 05/01/19 24 Active aspirin chewable tablet 81 mg Chew and swallow 81 mg by mouth daily. Active glipiZIDE XL (GLUCOTROL XL) 2.5 mg tablet Take 2.5 mg by mouth daily. Active sennosides-docus ate sodium (PERICOLACE) 8.6-50 mg Take 2 tablets by mouth daily. 05/01/19 24 Active morphine IR 15 mg tablet 06/17/19 24 Active morphine ER (MS CONTIN) 30 mg tablet 06/23/19 24 Active magnesium oxide (MAG-OX) 400 mg (241.3 mg mag) tablet Take 400 mg by mouth once a day. Active cholecalciferol (VITAMIN D3) 1,250 mcg (50,000 unit) capsule Take 50,000 Units by mouth every 7 days. 05/01/19 24 Active metFORMIN (GLUCOPHAGE) 500 mg tablet 07/15/19 24 Active Lantus U-100 Insulin 100 unit/mL solution injection 07/27/19 24 Active Zenpep 15,000-47,000 -63,000 unit capsule 07/31/19 24 Active blood-glucose sensor (FreeStyle Rome 3 Sensor) device Change sensor every 14 days. 1 each 11/12/19 24 Active blood-glucose meter,continuous (FreeStyle Rome 3 Pyrites) [facility] Use to monitor blood sugars. E11.9 1 each 11/12/19 24 Active Fiasp FlexTouch U-100 Insulin 100 unit/mL (3 mL) insulin pen Inject per sliding scale 3x daily with meals; MDD: 25 units. 15 mL 3 11/12/19 24 Active pen needle (BD Ultra-Fine Agnes) 4 mm x 32 g Use 3 times daily. E11.9 300 each 3 11/12/19 24 Active atorvastatin (LIPITOR) 20 mg tablet Take 1 tablet (20 mg total) by mouth once a day. 30 tablet 11/12/19 24 025 Active Active Problems Problem Noted Date Diagnosed Date Gastric mass 04/22/2023 Assessment & Plan (04/22/2023 5:50 PM EST): Gastric mass 04/21/2023 Assessment & Plan (04/22/2023 5:44 PM EST): GI evaluated. Patient underwent EGD on 04/20/23 showed partial gastric outlet obstruction due to a large mass in the gastric antrum multiple biopsies Await biopsies result review plan with Dr Hackett noting recs from () Dr Peterson 04/21. Patient will need to be transferred to a [facility] for surgical evaluation. Tolerating full liquid and ensure. Pt is an actual jail patient at [facility], so if care needed, pt can continue with Daniele noting that pt will likely require transfer to [facility] center for surgical oncology consult Assessment & Plan (04/21/2023 1:43 PM EST): EGD completed 04/20 Noted gastric mass, involving duodenum and pancreas Await biopsies review plan with Dr Hackett noting recs from Dr Peterson 04/21 Pain mgmt upgraded Bowel regimen held due to diarrhea (not CDIFF in presentation, pt is on ABX) Pt is tolerating clears, ensure Chronic indwelling Workman catheter 04/21/2023 Assessment & Plan (04/22/2023 5:50 PM EST): Maintain catheter Urine negative Assessment & Plan (04/21/2023 1:44 PM EST): Maintain catheter Urine negative Slow transit constipation 04/20/2023 Assessment & Plan (04/22/2023 5:50 PM EST): Having diarrhea Assessment & Plan (04/21/2023 1:42 PM EST): Pt reported long hx of constipation with straining and pain Added lactulose to routine bowel regimen Pt was incontinent of stool 04/19, lactulose stopped Pt will continue DS, senna, miralax prn 04/21 Now having diarrhea, no evidence of CDIFF Hold Bowel regimen If diarrhea continues, check for CDIFF Pt is on liquid diet Assessment & Plan (04/20/2023 8:34 AM EST): Pt reported long hx of constipation with straining and pain Added lactulose to routine bowel regimen Pt was incontinent of stool 04/19, lactulose stopped Pt will continue DS, senna, miralax prn Elevated CEA 04/19/2023 Assessment & Plan (04/22/2023 5:48 PM EST): Assessment & Plan (04/21/2023 1:40 PM EST): As above 6.4 CA 19-9 also elevated, back 04/21 149 GI, HEME/ONC consulted EGD planned for 04/20, biopsies will be taken Assessment & Plan (04/20/2023 8:25 AM EST): As above GI, HEME/ONC consulted EGD planned for 04/20, biopsies will be taken Assessment & Plan (04/19/2023 1:50 PM EST): As above GI, HEME/ONC consulted Anemia in other chronic diseases classified else where 04/19/2023 Assessment & Plan (04/22/2023 5:49 PM EST): Stool positive with noted GI findings on CT with possible new CA dx Assessment & Plan (04/21/2023 1:40 PM EST): Stool positive with noted GI findings on CT with possible new CA dx PPI IV 40 BID No indication for transfusion at this time EGD tomorrow 04/20 Iron studies: normal iron, elevated ferritin (reactive) Follow H/H, may be dilutional as pt has been on IVF, Discontinued IVF 04/21 Assessment & Plan (04/20/2023 8:25 AM EST): Stool positive with noted GI findings on CT with possible new CA dx PPI IV 40 BID No indication for transfusion at this time EGD tomorrow 04/20 Iron studies: normal iron, elevated ferritin Assessment & Plan (04/19/2023 1:51 PM EST): Stool positive with noted GI findings on CT with possible new CA dx PPI IV 40 BID No indication for transfusion at this time EGD tomorrow 04/20 Iron studies pending Sepsis 04/18/2023 Assessment & Plan (04/22/2023 5:40 PM EST): 2/ pneumonia - Pt is on ABX therapy for PNA, end date 04/23/23 - Hpylori, Blood cultures and urine culture negative for growth Assessment & Plan (04/21/2023 1:32 PM EST): Symptoms have improved but concern for new cancer diagnosis VSS Pt is on ABX therapy for PNA, GI tract infection - continuing Ceftriaxone, Flagyl and Azithromycin Blood cultures and urine culture negative for growth Hpylori negative 04/21 GI cancer noted on EGD, biopsies pending GS Dr Peterson recommends tertiary center for surgical oncology review for possible surgery once biopsies are back Dr Hackett is following, await biopsies Gastic, duodenum and pancreas involvement noted Pt is afebrile, no leukocytosis Remains on ABX coverage Assessment & Plan (04/20/2023 8:16 AM EST): Symptoms have improved but concern for new cancer diagnosis VSS Pt is on ABX therapy for PNA, GI tract infection - continuing Ceftriaxone, Flagyl and Azithromycin Blood cultures and urine culture negative for growth Hpylori negative Assessment & Plan (04/19/2023 1:42 PM EST): Symptoms have improved but concern for new cancer diagnosis VSS Pt is on ABX therapy for PNA, GI tract infection - continuing Ceftriaxone, Flagyl and Azithromycing Blood cultures and urine culture negative for growth Bladder stones 04/18/2023 Assessment & Plan (04/22/2023 5:29 PM EST): Incidental finding Follow up outpatient Assessment & Plan (04/21/2023 1:34 PM EST): Incidental finding, pt will be in OR for EGD Thursday UA neg for heme Urine culture neg Urology consult as needed Assessment & Plan (04/20/2023 8:16 AM EST): Incidental finding, will consult urology for Thursday, pt will be in OR for EGD Thursday UA neg for heme Urine culture neg Assessment & Plan (04/19/2023 1:43 PM EST): Incidental finding, will consult urology for tomorrow UA neg for heme Gallstones 04/18/2023 Assessment & Plan (04/22/2023 5:41 PM EST): Noted on CT of abdomen and pelvis. Patient is asymptomatic. He denies any pain. GI and GS are aware, no indication for cholecystectomy per Dr Peterson Assessment & Plan (04/21/2023 1:44 PM EST): Noted on CT ABD Dr Hackett updated No indication for cholecystectomy per Dr Peterson Pt is not having pain issues Lipase is trending down with IVF Assessment & Plan (04/20/2023 8:27 AM EST): Noted on CT ABD Dr Hackett updated No indication for cholecystectomy per Dr Peterson Pt is not having pain issues Lipase is trending down with IVF Assessment & Plan (04/19/2023 1:54 PM EST): Noted on CT ABD Dr Hackett updated No indication for cholecystectomy per Dr Peterson Pt is not having pain issues Lipase is trending down Multiple subsegmental pulmon yaneli emboli without acute cor pulmonale 04/18/2023 Assessment & Plan (04/22/2023 5:43 PM EST): New Pulmonary embolism seen on CTA. Suspected to be due to new GI malignancy. Heme & Onc evaluated, on full dose therapeutic lovenox (NOAC not recommended) Echo done, EF 55%, Grade 1 LV diastolic dysfunction with impaired relaxation. Duplex of the lower extremities were negative. Assessment & Plan (04/21/2023 1:37 PM EST): New finding, pt is on lovenox wt based due to suspected new GI CA dx (NOAC not recommended) Lower Ext dopplers ordered, neg for DVT Pt is on 3L Echo done, EF 55%, Grade 1 LV diastolic dysfunction with impaired relaxation Heme consult for Friday 04/21 Pt seen by Heme, agree with lovenox Updated provider regarding the EGD and noted cancer mass suspected, biopsies pending Pt is an actual jail patient at [facility], so if care needed, pt can continue with Daniele noting that pt will likely require transfer to tertiary center for surgical oncology consult Assessment & Plan (04/20/2023 8:18 AM EST): New finding, pt is on lovenox wt based due to suspected new GI CA dx (NOAC not recommended) Lower Ext dopplers ordered, neg for DVT Pt is on 3L Echo done, EF 55%, Grade 1 LV diastolic dysfunction with impaired relaxation Heme consult for Thursday Assessment & Plan (04/19/2023 1:44 PM EST): New finding, pt is on lovenox wt based due to suspected new CA dx (NOAC not recommended) Lower Ext dopplers ordered Pt is on 2L Echo done, results pending Heme consult for Thursday Alcohol-induced acute pancre atitis without infection or necrosis 04/18/2023 Assessment & Plan (04/21/2023 1:37 PM EST): Pt has not had alcohol since December 2022 No need for CIWA Thiamine and FA ordered Hepatitis panel pending Pt will be going for Endoscopy with Dr Hackett 04/20, unclear if pt will need ERCP CEA elevated 6.4, other tumor markers pending Continuing IVF, lipase is trending down Pain worsened overnight 04/20, morphine is helping Pt is currently NPO for EGD today 04/20, due to ABD symptoms and partial GOO, pt may need NG tube, will order Ativan IV as well, pt has zofran ordered Gallstones present on CT scan, no indication currently for cholecystectomy per Dr Peterson 04/21 Gastric cancer suspected s/p EGD, biopsies pending Pain mgmt dilaudid, po oxycodone Assessment & Plan (04/20/2023 8:21 AM EST): Pt has not had alcohol since December 2022 No need for CIWA Thiamine and FA ordered Hepatitis panel pending Pt will be going for Endoscopy with Dr Hackett 04/20, unclear if pt will need ERCP CEA elevated 6.4, other tumor markers pending Continuing IVF, lipase is trending down Pain worsened overnight 04/20, morphine is helping Pt is currently NPO for EGD today 04/20, due to ABD symptoms and partial GOO, pt may need NG tube, will order Ativan IV as well, pt has zofran ordered Gallstones present on CT scan, no indication currently for cholecystectomy per Dr Peterson Assessment & Plan (04/19/2023 1:55 PM EST): Pt has not had alcohol since December 2022 No need for CIWA Pt will be going for Endoscopy with Dr Hackett, unclear if pt will need ERCP CEA elevated 6.4 Continuing IVF lipase is trending down No issues with pain Pt is now tolerating full liquid diet Gallstones present on CT scan, no indication currently for cholecystectomy per Dr Peterson Pseudocyst of pancreas 04/18/2023 Assessment & Plan (04/22/2023 5:48 PM EST): Could be related to gastric mass. S/p stomach biopsy 04/21/23, result pending - CEA level is 6.4 & CA 19-9 level is 149 - Heme & Onc are aware. Assessment & Plan (04/21/2023 1:39 PM EST): Pt will be going for endoscopy 04/[address] Lew MARINELLI at midnight CEA elevated 04/21 Pt had EGD and notes gastric cancer, biopsies pending CA 19-9 also elevated Review needs with Dr Hackett once biopsies are back Assessment & Plan (04/20/2023 8:22 AM EST): Pt will be going for endoscopy 04/[address] Lew MARINELLI at midnight CEA elevated Assessment & Plan (04/19/2023 1:49 PM EST): Pt will be going for endoscopy tomorrow with Dr Lew MARINELLI at midnight CEA elevated Partial gastric outlet obstruction 04/18/2023 Assessment & Plan (04/22/2023 5:47 PM EST): Seen on EGD 04/21/23 Assessment & Plan (04/21/2023 1:39 PM EST): NG was not required on admission Pt has not had any further N/V Pt will be going for endoscopy tomorrow with Dr Hackett CEA elevated Biopsies will be collected 04/20 Pt having increasing abdominal pain with noted elevated CEA and abnormal CT Dr Hackett taking pt for EGD today, unclear if pt will need ER Morphine and ativan on board Concern for noted hx of SBO and surgery and more recent constipation with straining, pt is on a full bowel regimen 04/21 Gastric cancer suspected, biopsies pending No N/V, tolerating clears, added ensure per surgery Assessment & Plan (04/20/2023 8:24 AM EST): NG was not required on admission Pt has not had any further N/V Pt will be going for endoscopy tomorrow with Dr Hackett CEA elevated Biopsies will be collected 04/20 Pt having increasing abdominal pain with noted elevated CEA and abnormal CT Dr Hackett taking pt for EGD today, unclear if pt will need ER Morphine and ativan on board Concern for noted hx of SBO and surgery and more recent constipation with straining, pt is on a full bowel regimen Assessment & Plan (04/19/2023 1:50 PM EST): NG was not required Pt has not had any further N/V Pt will be going for endoscopy tomorrow with Dr Hackett CEA elevated Biopsies will be collected Hypoglycemia 04/12/2023 Assessment & Plan (04/13/2023 11:55 AM EST): IDDM No recent A1C S/p found to be unresponsive at [facility], has had decreased po intake Found to have fingerstick glucose in 30s, he was also seen in the ED for hypoglycemia on 02/20/2023 S/p IV 10DW by EMS, follow up glucose in 300s In the ED, serum glucose 170 Pt able to tolerate po intake, found to have pneumonia Encourage po intake POCT ACHS- may resume insulin once his po intake recovers Blood sugars improved now. Hemoglobin A1c-8.5 Hypoglycemic episode secondary to discectomies/poor oral intake Recommend to continue glipizide and insulin sliding scale Continue to monitor blood sugars closely agree Pneumonia 04/12/2023 Assessment & Plan (04/22/2023 5:26 PM EST): Completing treatment for pneumonia. Last dose of ceftriaxone 04/23/23. No leukocytosis or fever. On 2L NC. Wean o2 as tolerated. Assessment & Plan (04/21/2023 1:30 PM EST): Noted on CT chest Azithromycin added Duonebs prn 2L O2 04/20 Pt now on 3L, NPO for EGD Pain is more of an issue this AM, morphine on board and reduces the pain IS ordered to do as tolerated 04/21 Pt continues on ABX ordered O2 down to 2L IS when able Assessment & Plan (04/20/2023 8:15 AM EST): Noted on CT chest Azithromycin added Duonebs prn 2L O2 04/20 Pt now on 3L, NPO for EGD Pain is more of an issue this AM, morphine on board and reduces the pain IS ordered to do as tolerated Assessment & Plan (04/19/2023 1:52 PM EST): Noted on CT chest Azithromycin added Duonebs prn 2L O2 Assessment & Plan (04/13/2023 11:57 AM EST): C.c unresponsiveness, Congestive cough Tachycardic, lactic acidosis, no leukocytosis, tachypnea, the source of infection - pneumonia: SIRS and suspected sepsis, Blood cx pending, s/p volume resuscitation in the ED, Treated with IV Ceftriaxone and Azithromycin in the hospital Patient remained stable clinically. Hypoxia resolved Continue antibiotics on discharge. Hypomagnesemia 04/12/2023 Assessment & Plan (04/13/2023 11:57 AM EST): Received IV magnesium sulfate in the hospital BPH (benign prostatic hyperplasia) 04/12/2023 Assessment & Plan (04/12/2023 11:25 PM EST): On Tamsulosin Coronary artery disease invo lving autologous artery coronary bypass graft, unspecified whether angina present 04/12/2023 Assessment & Plan (04/22/2023 5:38 PM EST): ECG WNL NO CHEST PAIN Echo notes EF 55%, Grade 1 LV diastolic dysfunction, impaired relaxation Assessment & Plan (04/21/2023 1:43 PM EST): ECG WNL NO CHEST PAIN Echo notes EF 55%, Grade 1 LV diastolic dysfunction, impaired relaxation ASA held, pt on wt based lovenox for PE with possible new Cancer dx, stool positive but H/H stable Assessment & Plan (04/20/2023 8:26 AM EST): ECG WNL NO CHEST PAIN Echo notes EF 55%, Grade 1 LV diastolic dysfunction, impaired relaxation ASA held, pt on wt based lovenox for PE with possible new Cancer dx, stool positive but H/H stable Assessment & Plan (04/19/2023 1:53 PM EST): ECG WNL NO CHEST PAIN Echo pending ASA held, pt on wt based lovenox for PE with possible new Cancer dx, stool positive but H/H stable Assessment & Plan (04/12/2023 11:26 PM EST): ECHO in 2020 LVEF 70-75% On Aspirin, Carvedilol Diabetes mellitus 04/12/2023 Assessment & Plan (04/22/2023 5:38 PM EST): A1c level was 8.5 on 04/13/23 - Insulin sliding scale, POC glucose check, D50 PRN. Assessment & Plan (04/21/2023 1:43 PM EST): SSI ordered Pt NPO 04/20 for EGD no issues with hypoglycemia this admission, pt did experience hypoglycemia at [facility] which prompted the admission 04/21 D5 IVF stopped Pt is tolerating diet SSI Assessment & Plan (04/20/2023 8:27 AM EST): SSI ordered Pt NPO 04/20 for EGD no issues with hypoglycemia this admission, pt did experience hypoglycemia at [facility] which prompted the admission Assessment & Plan (04/19/2023 1:53 PM EST): SSI ordered Assessment & Plan (04/13/2023 11:58 AM EST): On Glipizide and insulin Hemoglobin A1c-8.5 on Gabapentin for neuropathy Continue to monitor blood sugars closely and hold glipizide for persistent hypoglycemia Resolved Problems Problem Noted Date Diagnosed Date Resolved Date Hypokalemia 04/20/2023 04/21/2023 Assessment & Plan (04/21/2023 1:40 PM EST): 04/19 K 3.2, replacement provided Pt is a difficult phlebotomy, labs for 04/20 pending Assessment & Plan (04/20/2023 8:29 AM EST): 04/19 K 3.2, replacement provided Pt is a difficult phlebotomy, labs for 04/20 pending Hypoglycemia 04/18/2023 04/19/2023 Social History Tobacco Use Types Packs/Day Years Used Date Smoking Tobacco: Never Smokeless Tobacco: Never Tobacco Cessation:Counseling Given: Not Answered Alcohol Use Standard Drinks/Week Comments Not Currently 0 (1 standard drink = 0.6 oz pur e alcohol) no use since dec 2022 Sex and Gender Information Value Date Recorded Sex Assigned at Male 05/25/2023 1:14 PM EST Legal Sex Male 3:36 AM EDT Gender Identity Not on file Sexual Orientation Not on file Last Filed Vital Signs Vital Sign Reading Time Taken Comments Blood Pressure 132/90 11/12/2023 8:41 AM EDT Pulse 109 11/12/2023 8:41 AM EDT Temperature 36.3 ??C (97.3 ??F) 10/13/2023 1:16 PM ED T Respiratory Rate 17 07/09/2023 4:09 PM EDT Oxygen Saturation 99% 10/13/2023 1:16 PM EDT Inhaled Oxygen Concentration - - Weight 72 kg (158 lb 11.7 oz) 11/12/2023 8:41 AM EDT Height 177.8 cm (5' 10 ) 11/12/2023 8:41 AM EDT Body Mass Index 22.78 11/12/2023 8:41 AM EDT Plan of Treatment Upcoming Encounters Date Type Department Care Team (Late st Contact Info) Description 04/18/2024 1:00 PM EST Follow-Up [address] [address] Gerber Alvarenga MD [address] [place] [address] 05/18/2024 9:30 AM EST Office Visit [facility] [address] [id number] Marybeth Nieto, LYUDMILA [address] [place], [place] [phone] Procedures * Due to [facility] law, this organization might not be sharing negative HIV tests. Procedure Name Priority Date/Time Associated Diagnosis Comments COMPREHENSIVE METABOLIC PANEL Routine 11/12/2023 10:27 AM EDT Type 2 diabetes mellitus with other specified complication, with long-term current use of insulin (HCC) POCT GLYCOSYLATED HEMOGLOBIN (HGB A1C) Routine 11/12/2023 8:33 AM EDT HEPATITIS PANEL, ACUTE Timed 11:30 AM EST OCCULT BLOOD (X1), STOOL Routine 04/19/2023 5:53 AM EST from Last 3 Months or Most Recently Relevant to Health Maintenance Results * Due to [place] [employer] law, this organization might not be sharing negative HIV tests. * (ABNORMAL) Comprehensive metabolic panel (11/12/2023 10:27 AM EDT) NA 132(L) 135 - 145 mmol/L 11/12/2023 11:34 AM EDT [facility] K 4.3 3.5 - 5.3 mmol/L 11/12/2023 11:34 AM EDT [facility] Cl 93(L) 98 - 107 mmol/L 11/12/2023 11:34 AM [facility] CO2 29 24 - 32 mmol/L 11/12/2023 11:34 AM [employer] [facility] Anion Gap 10 5 - 15 11/12/2023 11:34 AM [facility] Glucose 173(H) 65 - 99 mg/dL 11/12/2023 11:34 AM [facility] Creatinine 0.79 0.60 - 1.30 mg/dL 11/12/2023 11:34 AM [facility] Calcium 8.6 8.6 - 10.5 mg/dL 11/12/2023 11:34 AM [employer] [facility] Total Protein 6.2 6.0 - 8.0 g/dL 11/12/2023 11:34 AM [employer] [facility] Albumin 2.8(L) 3.5 - 5.2 g/dL 11/12/2023 11:34 AM [facility] Bilirubin, Total 0.4 0.2 - 1.2 mg/dL 11/12/2023 11:34 AM [facility] Alkaline Phosphatase 166(H) 35 - 129 U/L 11/12/2023 11:34 AM [facility] AST 27 10 - 40 U/L 11/12/2023 11:34 AM [facility] ALT 13 10 - 40 U/L 11/12/2023 11:34 AM [facility] BUN 16 7 - 23 mg/dL 11/12/2023 11:34 AM [facility] eGFR >90 >=60 mL/min/1. 73m2 11/12/2023 11:34 AM [facility] Comment:The estimated glomer ular filtration rate (eGFR) is calculated using a new formula developed by the NKF-ASN task force to eliminate race-based correction factors. The new formula uses serum/plasma creatinine, age, and gender to determine eGFR. A value below 60mls/min might indicate kidney disease and will be flagged. For additional information, see Francisco J naik al, Am J Kidney Dis. 2021;79(2):268- 288, A Unifying Approach for GFR estimation: Recommendations of the NKF-ASN Task Force on Reassessing the Inclusion of Race in Diagnosing Kidney Disease . Globulin, Total 3.4 2.1 - 4.2 g/dL 11/12/2023 11:34 AM EDT [facility] A/G Ratio 0.8(L) 1.5 - 3.0 11/12/2023 11:34 AM EDT [facility] Blood Structure of peripheral vein / Unknown Venipuncture / Unknown 11/12/2023 10:27 AM EDT 11/12/2023 10:49 AM EDT us Yunior Whitfield MD LAB BLOOD ORDERABLES Final Resu lt [facility] [address] [place] [address], * (ABNORMAL) POCT Glycosylated Hemoglobin (HGB A1C), interfaced (11/12/2023 8:33 AM EDT) Hemoglobin A1C, POCT 6.0(H) <=5.6 % 11/12/2023 8:46 AM EDT [facility], [facility] Comment: A1C Recommendation for Non- Adults with Diabetes: <7.0% ADA 2011 Standards of Medical Care in Diabetes Blood 11/12/2023 8:33 AM EDT 11/12/2023 8:46 AM EDT us Zay Castle MD LAB POCT ORDERABLES - DEVIC E Final Result [facility], [facility] [address] [place] [address], [place] * Hepatitis Panel, Acute (04/20/2023 11:30 AM EST) Hepatitis A IgM Antibody Interpretation Nonreactive Nonreactive 04/20/2023 3:36 PM EST [facility] Hepatitis B Core IgM Antibody Interpretation Nonreactive Nonreactive 04/20/2023 3:36 PM EST [facility] Hepatitis B Surface Antigen Interpretation Non-Reactive Non-Reactive 04/20/2023 3:36 PM EST [facility] Hepatitis C Antibody Interpretation Nonreactive Nonreactive 04/20/2023 3:36 PM EST [facility] Blood Structure of peripheral vein / Unknown Venipuncture / Unknown 04/20/2023 11:30 AM EST 04/20/2023 11:34 AM EST Brandon Davenport MD LAB BLOOD ORDERABLES Stephanie l Result [facility] [address] [place] [address], [place] [phone] * (ABNORMAL) Occult Blood (x1), Stool (04/19/2023 5:53 AM EST) Occult Blood, Stool #1 Positive(A ) Negative 04/19/2023 5:59 AM EST [facility] Stool Rectal route / Unknown 04/19/2023 5:53 AM EST 04/19/2023 5:53 AM EST Maddie Viera NP LAB BODY FLUIDS AND STOOLS ORDERABLES Final Result [facility] [address] [address], [place] [phone] from Last 3 Months or Most Recently [place]vant [id number] [id number] [facility] [id number] Advance Directives Documents on File Type Date 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 MOLST 07/01/2023 2:41 PM 04-06-2023 MOLST 04/18/2023 8:24 AM 04-03-2023 MOLST 04/13/2023 4:39 PM 04-03-2023 * Full Code (Latest Code Status on File) Date Activated Date Inactivated Comments 04/18/2023 12:52 AM 04/24/2023 12:44 AM * Full Code Date Activated Date Inactivated Comments 04/12/2023 10:37 PM 04/13/2023 3:07 PM Healthcare Agents on File Name Relationship Healthcare Agent Relationship Communication [facility] Health Care Agent Care Teams Disability Insurance Hearing Officer Relationship Specialty Start Date End Date Jhonatan García MD [address] [place] [address] PCP - General Internal Medicine 02/20/23
--- OUTSIDE RECORDS SUMMARY | 2024-04-13 07:47 | XMS_ITS | Encounter Summary ---
Author Organization [facility] Address [address] [place] [address] Care Team Providers Care Bobbin Hauler Name Role Phone Jhonatan García MD Primary Care Provider [phone] Encounter Details Date Type Department Care Team (Late st Contact Info) Description 10/18/2020 Lab Requisition [facility] [address] [place] [id number] Paresh Burden [address] [facility] [place] [address] Myopathy, unspecified Social History Tobacco Use Types Packs/Day Years Used Date Smoking Tobacco: Never Assessed Sex and Gender Information Value Date Recorded Sex Assigned at Male 05/25/2023 1:14 PM EST Legal Sex Male 3:36 AM EDT Gender Identity Not on file Sexual Orientation Not on file documented as of this encounter Plan of Treatment Upcoming Encounters Date Type Department Care Team (Late st Contact Info) Description 04/18/2024 1:00 PM EST Follow-Up [facility] [address] [place] [address] Gerber Alvarenga MD [address] [place] [address] 05/18/2024 9:30 AM EST Office Visit [facility] [address] [address] Marybeth Nieto, OD [address] [place] [address] documented as of this encounter Procedures * Due to [place] [email or web address] law, this organization might not be sharing negative HIV tests. Procedure Name Priority Date/Time Associated Diagnosis Comments TISSUE EXAM Routine 10/18/2020 9:00 AM EDT Myopathy, unspecified documented in this encounter Results * Due to [place] [email or web address] law, this organization might not be sharing negative HIV tests. * Tissue Exam (10/18/2020 9:00 AM EDT) Addendum Immunohistochemistry (frozen, block 2A): - MHC Class I: absent to minimal sarcoplasmic reactivity (not overexpressed) Interpretation: The muscle fibers show absent or perhaps minimal reactivity (in some fibers) for MHC Class I. This significantly differs from the known positive control, and indicates that this is most likely a negative result. Increased expression for MHC Class I, although not entirely specific, is most often associated with an inflammatory or autoimmune myopathy. [place] [facility] 4:36 PM EDT [facility] Addendum electronically signed by oGrdon Olivo MD on 10/29/2020 at 4:36 PM Final Diagnosis Specimens #1 and #2 - Muscle, Left Quadriceps, Biopsy: - Abnormal muscle with atrophy of both type 1 and 2 fibers, and rare degenerating/regenera ting fibers. - (See Note). Note: This muscle is somewhat difficult to interpret due to artifact. The presence of atrophic fibers of both histochemical types suggests possible denervation, however a component of type 2 atrophy is also likely present. Very rare degenerating and regenerating fibers are also noted, but they are not a prominent feature and are not accompanied by other myopathic changes or inflammation. Additional correlation with clinical and electrophysiologic data may help clarify this patients neuromuscular disorder. Microscopic Description: Fiber size/shape: - Fiber size variation: increased (bimodal pattern) - Atrophic fibers: - Angulated atrophic fibers: present - Non-angulated small fibers: present - Pyknotic nuclear clumps: present - Group atrophy: none - Perifascicular atrophy: none - Hypertrophic fibers: none Myopathic changes: - Degenerating/necrotic fibers: present (very rare) - Regenerating fibers: present (very rare) - Internalized nuclei: not increased - Fiber splitting: none - Vacuolated fibers: none - Endomysial fibrosis: none Inflammation: - Mononuclear inflammation: - Epimysial: none - Perimysial: none - Endomysial: none - Granulomas: none - Vasculitis: none Intramuscular nerves: not identified in specimen Muscle Enzyme Histochemistry and Special Stains: Gomori trichrome: - Intermyofibrillar network: no specific abnormality - Ragged red fibers: none - Rimmed vacuoles: none - Other abnormal inclusions: none NADH-TR: - Fiber cytoarchitecture: rare fibers with target-like structures - Dark atrophic fibers: present (focal) Cytochrome oxidase: - SAINI-negative fibers: none ATPase (pH 9.4, 4.6, 4.3): - Atrophic fibers: both type 1 and 2 - Fiber type grouping: none - Fiber type predominance: none PAS (+/- diastase): - Glycogen content/distribution: no abnormality identified Oil red O: - Lipid content/distribution: no abnormality identified [facility] MANUAL 1 4:36 PM EDT [facility] ANAT[facility] PATHOLOGY LABORATORY Clinical History Muscle weakness [facility] MANUAL 1 4:36 PM EDT [facility] AN[facility] PATHOLOGY LABORATORY Gross Description 1. Muscle, NOS, Left Quadricep The specimen is received in formalin labeled with the patient's name, medical record number, date of and quadriceps muscle left . It consists of a piece of skeletal muscle measuring 2.2 x 1.6 x 0.5 cm. Please note the specimen is received free-floating within the formalin (not attached to a muscle clamp). This specimen is processed for paraffin embedded routine light microscopy. A small fragment is also put into 3% gluteraldehyde for possible electron microscopy. 2. Muscle, NOS The specimen is received fresh on ice, wrapped in saline soaked gauze labeled with the patient's name, medical record number, date of and quadriceps muscle left . It consists of skeletal muscle measuring 1.5 x 1.3 x 0.4 cm cm, sutured to a tongue depressor. This is snap frozen in isopentane cooled by liquid nitrogen at -140 degrees C for histochemical stain. [place] [facility] 1 4:36 PM EDT [facility] [employer] [facility] ANATOMIC PATHOLOGY LABORATORY Gross Description User Grossing complete by Yoon Powers on 10/18/2020 11:38 AM [facility] MANUAL 4:36 PM EDT [facility] [employer] [facility] ANATOMIC PATHOLOGY LABORATORY Embedded Images [facility] MANUAL 4:36 PM EDT [facility] [employer] [facility] ANATOMIC PATHOLOGY LABORATORY Disclaimer Some of these tests were developed and their performance characteristics determined by the Immunoperoxidase/Hist ology Laboratory of [facility]. They have not been cleared or approved by the U.S. Food and Drug Administration. The FDA has determined that such clearance or approval is not necessary. This test is used for clinical purposes. It should not be regarded as investigational or for research. This laboratory is certified under the Clinical Laboratory Improvement Amendments of 1988 (CLIA-88) as qualified to perform high complexity clinical laboratory testing. [facility] MANUAL 4:36 PM EDT [facility] SYSTEM[facility] TechnologiesAR [employer] [facility] PATHOLOGY LAB[facility]ATORY Resulting Agency Case was signed out at [facility], Department of Pathology, [facility] 3 CLIA [id number] [facility] 4:36 PM EDT [facility] [employer] [facility] LAB[facility] Tissue Muscle structure / Unknown 10/18/2020 9:00 AM EDT 10/18/2020 11:26 AM EDT Tissue specimen (specimen) Muscle structure / Unknown 10/18/2020 9:00 AM EDT 10/18/2020 11:26 AM EDT us Paresh Burden LAB PATHOLOGY/CYTOLOGY ORDERABLE S Edited Result - Final [facility] [employer] [facility] LAB[facility]ORY [address] [place] [address], documented in this encounter Visit Diagnoses Diagnosis Myopathy, unspecified documented in this encounter Additional Health Concerns Infection Onset Date Last Indicated Resolved Time R/O Respiratory Virus Infection 04/18/2023 04/18/2023 2:22 AM EST R/O Influenza 04/18/2023 04/18/2023 04/18/2023 2:2 2 AM EST COVID-19 - Suspected infection 04/18/2023 04/18/2023 04/18/2023 2:22 AM EST R/O C.diff 04/22/2023 04/22/2023 04/29/2023 10:3 2 PM EST documented as of this encounter Care Teams Bobbin Hauler Relationship Specialty Start Date End Date Jhonatan García MD [address] [place] [address] PCP - General Internal Medicine 02/20/23 documented as of this encounter
--- OUTSIDE RECORDS SUMMARY | 2024-04-13 07:47 | XMS_ITS | Clinical Summary ---
Author Organization [facility] Address [address] [place] [address] Care Team Providers Care Branch Store Manager Name Role Phone Jhonatan García MD Primary Care Provider [phone] Allergies No known active allergies Medications bisacodyL [...] Take 2 tablets by mouth daily. 05/01/19 Active morphine IR 15 mg tablet 06/17/19 Active morphine ER (MS CONTIN) 30 mg tablet 06/23/19 Active magnesium oxide (MAG-OX) 400 mg (241.3 mg mag) tablet Take 400 mg by mouth once a day. Active cholecalciferol (VITAMIN D3) 1,250 mcg (50,000 unit) capsule Take 50,000 Units by mouth every 7 days. 05/01/19 Active metFORMIN (GLUCOPHAGE) 500 mg tablet 07/15/19 Active Lantus U-100 Insulin 100 unit/mL solution injection 07/27/19 Active Zenpep 15,000-47,000 -63,000 unit capsule 07/31/19 Active blood-glucose sensor (FreeStyle Rome 3 Sensor) device Change sensor every 14 days. 1 each 11/12/19 Active blood-glucose meter,continuous (FreeStyle Rome 3 [place]) [facility] Use to monitor blood sugars. E11.9 1 each 11/12/19 Active Fiasp FlexTouch U-100 Insulin 100 unit/mL (3 mL) insulin pen Inject per sliding scale 3x daily with meals; MDD: 25 units. 15 mL 3 11/12/19 Active pen needle (BD Ultra-Fine Agnes) 4 mm x 32 g Use 3 times daily. E11.9 300 each 11/12/19 Active atorvastatin (LIPITOR) 20 mg tablet Take 1 tablet (20 mg total) by mouth once a day. 30 tablet 11/12/19 025 Active Active Problems Problem Noted Date Diagnosed Date Gastric mass 04/22/2023 Assessment & Plan (04/22/2023 5:50 PM EST): Gastric mass 04/21/2023 Assessment & Plan (04/22/2023 5:44 PM EST): GI evaluated. 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 Patient will need to be transferred to a [facility] for surgical evaluation. Tolerating full liquid and ensure. 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, pt can continue [...] [facility]C [facility] Found to [...] Assessment & Plan (04/21/2023 1:43 PM EST): [facility] [employer] [facility] ordered Pt NPO 04/20 for EGD no [...] labs for 04/20 pending Hypoglycemia 04/18/2023 04/19/2023 Encounters Date Type Department Care Team Description 04/08/[address] [address] Telephone Intake, Staff 01/13/2024 Telephone [facility] [address] [place] [address] [phone] Banking Pin Adjuster: Zay Kim MD from Last 3 Months Family History Medical History Relation Name Comments Colon cancer Father Relation Name Status Comments Father Social History Tobacco Use Types Packs/Day Years [...] Info) Description 04/18/2024 1:00 PM EST Follow-Up [address] [address] Gerber Alvarenga MD [address] [place] [address] 05/18/2024 9:30 AM EST Office Visit [facility] [address] [place] [address] Marybeth Nieto P, OD [address] [place] [address] Health Maintenance Due Date Last Done Comments Cologuard 1960 Colonoscopy 1958 Sigmoidoscopy 1958 Pneumococcal Vaccine: 65+ Years (1 of 2 - PCV) 1964 Ophthalmology Exam 1968 Urine Microalbumin 1968 DTaP,Tdap,and Td Vaccines (1 - Tdap) 1980 Zoster Vaccines (1 of 2) 2008 RSV Vaccine (60+ years old and patients) (1 - Risk 60-74 years 1-dose series) 2018 COVID-19 Vaccine ( season) 2023 08/23/2023, 02/19/2023, 04/12/2020 Influenza Vaccine (#1) 2023 Alcohol/Substance Use Screening 03/23/2024 Depression Screening and Follow-Up 03/23/2024 06/11/2023 Health Care Proxy Review 03/23/2024 Social Drivers of Health Annual Screening 03/23/2024 Colon Cancer Screening 04/19/2024 FOBT / Fit Test 04/19/2024 04/19/2023 Hemoglobin A1C 05/14/2024 11/12/2023, 02/0 04/2023, 04/13/2023 Basic Metabolic Panel 11/11/2024 11/12/2023 , 09/30/2023, 07/27/2023, Additional history exists Hepatitis C Screening Completed 04/20/2023, 024 HIV Screening Completed 06/25/2023 Hepatitis B Vaccines Aged Out No long er eligible based on patient's age to complete this topic Procedures * Due to [facility] law, this organization might not be sharing [...] to Health Maintenance Results * Due to [place] [employer] law, this organization might not be sharing negative HIV tests. * (ABNORMAL) Comprehensive metabolic panel (11/12/2023 10:27 AM EDT) NA 132(L) 135 - 145 mmol/L 11/12/2023 11:34 AM EDT [facility] K 4.3 3.5 - 5.3 mmol/L 11/12/2023 11:34 AM EDT [facility] Cl 93(L) 98 - 107 mmol/L 11/12/2023 11:34 AM EDT [facility] CO2 29 24 - 32 mmol/L 11/12/2023 11:34 AM EDT [facility] Anion Gap 10 5 - 15 11/12/2023 11:34 AM EDT [facility] Glucose 173(H) 65 - 99 mg/dL 11/12/2023 11:34 AM EDT [facility] Creatinine 0.79 0.60 - 1.30 mg/dL 11/12/2023 11:34 AM [facility] Calcium 8.6 8.6 - 10.5 mg/dL 11/12/2023 11:34 AM [facility] Total Protein 6.2 6.0 - 8.0 g/dL 11/12/2023 11:34 AM ED [facility] Albumin 2.8(L) 3.5 - 5.2 g/dL 11/12/2023 11:34 AM [facility] Bilirubin, Total 0.4 0.2 - 1.2 mg/dL 11/12/2023 11:34 AM [facility] Alkaline Phosphatase 166(H) 35 - 129 U/L 11/12/2023 11:34 AM [facility] AST 27 10 - 40 U/L 11/12/2023 11:34 AM [facility] ALT 13 10 - 40 U/L 11/12/2023 11:34 AM [facility] BUN 16 7 - 23 mg/dL 11/12/2023 11:34 AM [facility] eGFR >90 >=60 mL/min/1. 73m2 11/12/2023 11:34 AM [facility] Comment:The estimated glomer ular [...] - 4.2 g/dL 11/12/2023 11:34 AM EDT [facility] A/G Ratio 0.8(L) 1.5 - 3.0 11/12/2023 11:34 AM EDT [facility] CL[facility] PATHOLOG[facility] LAB[facility] Blood Structure of peripheral vein / Unknown Venipuncture / Unknown 11/12/2023 10:27 AM EDT 11/12/2023 10:49 AM EDT us Yunior Whitfield MD LAB BLOOD ORDERABLES Final Resu lt [facility] CL[facility]ICAL [facility]OLOG[facility] LAB[facility]ORY [address] [place] [address], [place] * (ABNORMAL) POCT Glycosylated Hemoglobin (HGB A1C), interfaced (11/12/2023 8:33 AM EDT) Hemoglobin A1C, POCT 6.0(H) <=5.6 % 11/12/2023 8:46 AM EDT [facility], [facility] Comment: A1C Recommendation for Non- Adults with Diabetes: <7.0% ADA 2011 Standards of Medical Care in Diabetes Blood 11/12/2023 8:33 AM EDT 11/12/2023 8:46 AM EDT us Zay Castle MD LAB POCT ORDERABLES - DEVIC E Final Result [facility] [address] [place] [address], [place] * Hepatitis Panel, Acute (04/20/2023 11:30 AM EST) Hepatitis A IgM Antibody Interpretation Nonreactive Nonreactive 04/20/2023 3:[address] [facility] Hepatitis B Core IgM Antibody Interpretation Nonreactive Nonreactive 04/20/2023 3:[address] [facility] Hepatitis B Surface Antigen Interpretation Non-Reactive Non-Reactive 04/20/2023 3:[address] [facility] Hepatitis C Antibody Interpretation Nonreactive Nonreactive 04/20/2023 3:[address] [facility] Blood Structure of peripheral vein / Unknown Venipuncture / Unknown 04/20/2023 11:30 AM EST 04/20/2023 11:34 AM EST Brandon Davenport MD LAB BLOOD ORDERABLES Stephanie l Result [facility] [address] [place] [address], [place] [phone] * (ABNORMAL) Occult Blood (x1), Stool (04/19/2023 5:53 AM EST) Occult Blood, Stool #1 Positive(A ) Negative 04/19/2023 5:59 AM EST [facility] Stool Rectal route / Unknown 04/19/2023 5:53 AM EST 04/19/2023 5:53 AM EST Maddie Viera NP LAB BODY FLUIDS AND STOOLS ORDERABLES Final Result 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 MOLST 07/01/2023 2:41 PM 04-06-2023 MOLST 04/18/2023 8:24 AM 04-03-2023 MOLST 04/13/2023 4:39 PM 04-03-2023 * Full Code (Latest Code Status on File) Date Activated Date Inactivated Comments 04/18/2023 12:52 AM 04/24/2023 12:44 AM * Full Code Date Activated Date Inactivated Comments 04/12/2023 10:37 PM 04/13/2023 3:07 PM Healthcare Agents on File Name Relationship Healthcare Agent Relationship Communication [facility] Health Care Agent Care Teams Branch Store Manager Relationship Specialty Start Date End Date Jhonatan García MD [address] [place] [id number] PCP - General Internal Medicine 02/20/23
--- OUTSIDE RECORDS SUMMARY | 2024-04-13 07:47 | XMS_ITS | Continuity of Care Document ---
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 Name Role Phone REGRENETTA GUTIERREZ - 2ND FLOOR OTHER Assessment No [...] back Active 2024 Ghazal Perez NP [address], [place], [address], [facility] [employer] [facility] 5 15:24:06 Diarrhea 79492772 Active 2024 Ghazal Perez NP [address], [address], [place], [address], [facility] [employer] 5 15:24:18 Chronic pancreatitis 603110344 Active 2024 Ghazal Perez NP [address], [address], [place], [address], [facility] [employer] 5 15:24:29 Retention of urine 304630542 Active 2024 Ghazal Perez NP [address], [address], [place], [address], [facility] [employer] 5 15:24:41 Urinary tract infectious disease 48186672 Active 2024 Ghazal Perez NP [address], [address], [place], [address], [facility] 5 15:24:48 Type 2 diabetes mellitus 87150147 Active 2024 Ghazal Perez NP [address], [address], [place], [address], [facility] 5 15:25:00 Alteration in nutrition: less than body requirements 90402307 Active 2024 Ghazal Perez NP [address], [address], [place], [address], [facility] 5 15:26:32 Hypertensive disorder 34872084 Active 2024 Ghazal Perez NP [address] [facility], [address], [place], [address], [facility] 5 15:26:41 Neuropathy 729642019 Active 2024 Ghazal Perez NP [address] [facility], [address], [place], [address], [facility] 5 15:26:56 Cerebrovascula r accident 002983255 Active 2024 Ghazal Perez NP [address] [facility], [address], [place], [address], [facility] 5 15:27:06 Asthenia 66140230 Active 2024 Ghazal Perez NP [address] [facility], [address], [place], [address], [facility] 5 15:27:29 Chronic pain 23390049 Active 2024 Ghazal Perez NP [address], [address], [place], [address], [facility] 5 15:27:37 Spinal stenosis of lumbar region 93389347 Active 2024 Ghazal Perez NP [address], [address], [place], [address], [facility] 5 15:29:34 Anemia 897595691 Active 2024 Ghazal Perez NP [address] [facility], [address], [place], [address], [employer] [facility] 5 00:10:35 Alcohol dependence 69278327 Active 2024 Tyrone Ibarra MD [address] [facility], [address], [place], [address], [facility] [facility] 5 09:41:47 Problem Notes None recorded. Medical Equipment None Reported. Allergies No known drug allergies Medications Name Sig Start Date Stop Date Status Note LastModified by Organization Details LastModified Time Soma 350 mg tablet 1 tab Po QID 03/29/19 25 active Not Available Not Available Not Avai lable Vitals Date Recorded Body weight Heart rate Respiratory rate Body temperature Oxygen saturation Oxygen saturation in Arterial blood by Pulse oximetry Systolic blood pressure Diastolic blood pressure Provider Name and Address Organization Details Last Updated DateTime 5 97734.5 9 g 65 /min 18 /min 97.2 [degF] 95 % 95 % 94 mm[Hg] 56 mm[Hg] Ghazal Perez NP [address] [facility], [address], [place], [address], [employer] 5 12:26:05 Social History Question Answer Notes LastModified by Organizat ion Details LastModified Time Tobacco Smoking Status Former Smoker Ghazal Perez NP [address] [facility], [facility] [address], [place], [address], [employer] 03/31/2024 23:59:16 What Is Your Level Of [...] SARS-COV-2 (COVID-19) vaccine, UNSPECIFIED 04/12/2020 completed Harley ashley, [facility] [employer] 03/31/2024 16:12:52 SARS-COV-2 (COVID-19) vaccine, UNSPECIFIED 02/19/2023 completed Harley ashley, [facility] 03/31/2024 16:13:07 SARS-COV-2 (COVID-19) vaccine, UNSPECIFIED 08/23/2023 completed Harley ashley, [facility] 03/31/2024 16:13:12 Past Encounters Encounter ID Performer Location Encounter Start Date Encounter Closed Date Diagnosis/Indication Diagnosis SNOMED-CT Code Diagnosis ICD10 Code Diagnosis Note [id number] Ghazal Perez NP [facility] [address] [place] [address] 03/30/2024 15:09:58 04/01/2024 10:21:12 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 PM&R recommende d to increase gabapentin to 500mg PO tid. Hypertensive disorder 38 789879 I10 Resume home lisinopril Alteration in nutrition: less than body requirements 85147774 R63.8 Significan t weight loss recently. Loss of muscle mass.Low albumin? 1 .8.Supplem ents orderedNut rition consult Type 2 noe ishes mellitus 32149329 E11.21 According to outpatient prescripti ons patient [...] emergency measures Urinary tr act infectious disease 53584755 N39.0 Patient with apparent recent diagnosis of urine retention started on tamsulosin and finasterid e as well as Workman catheter. He states that this was back in January but I am not sure where this was diagnosed as it was certainly not here at [facility] as last records previous to this 1 are from 2017. Patient had Workman catheter removed on presentati [...] patient for outpatient followup. Retention of urine 76257 4002 R33.9 see above Chronic pancreatitis 235 414472 K86.1 Patient has noted 2 weeks of [...] this.? Continue pancrelipa se? Monitor diarrhea Diarrhea 98858106 R19.7 resolved in hospital Spinal moni nosis of lumbar region 91298281 M48.061 carisoprod ol 350 mg po qidmonitor Altered mental status 41 8183908 R41.82 pt with ams and not able to respond, follow commands, or converse with acute change notedvital s boderline with sat 91%, bp 89/60, hr 70also with anemiasend to ER for evaluation of AMS Anemia 573085966 D64.9 pt with acute anemia and amslabs as aboveno obvious s/s of bleedingse nd to ER for eval [id number] [facility] [address] 04/02/2024 09:26:19 04/05/2024 09:47:05 Metabolic encephalopathy 75194222 G93.41 see HPIseconda ry to pneumonia and hypoglycem iaimproved with IVF and Abxnow started on metforminm onitor level of [facility] a cquired pneumonia 054302873 Y95 levaquin 750 mg qd to complete courseadd probioticm onitor respirator y status and need for repeat imaging Unstageabl e pressure injury of sacral region of back 3070521723 9853917 L89.152 see HPI with priorRecom mendations :1. [...] granulatio n tissue at wound bed Asthenia 58497791 R53.1 PT OT eval and treatmonit or fall risk and need for increased support in community Cerebrovas cular accident 025063121 I63.89 maintained oneliquis 5 mg bidlipitor 80 mg qdcontinue d Hypertensive disorder 38 922506 I10 lisinopril 2.5 mg qdmonitor bp and need to titrate Type 2 noe betes mellitus 23877704 E11.42 see above with recent hypoglycem ianow onmetformi n 500 mg bidinsulin discontinu edmonitor blood glucose prn Chronic pancreatitis 235 581529 K86.1 continue out patient medication supdate GI wiht concerns Moderate protein-calorie malnutrition (weight for age 60-74 percent of standard) 463904680 E44.0 dietary evalmonito r PO intake Benign pro static hyperplasia without outflow obstruction 704980816 N40.1 flomax 0.4 mg bidfinaste ride 5 mg qdcontinue dchronic foleyupdat e urology with concerns Alcohol dependence 82790 003 F10.20 recent withdrawal sx in hospital settingmon itor need for increased support in community [id number] Ghazal Perez NP [address] [address] 04/08/2024 08:37:45 04/11/2024 16:30:40 Metabolic encephalopathy 84072850 G93.41 seems to be improving heresecond yaneli to pneumonia and hypoglycem iafelt improved with IVF and Abx in hospitalno w started on metforminm onitor level of [facility] a cquired pneumonia 674470341 Y95 contlevaqu in 750 mg qd to complete course with probioticm onitor respirator y status and need for repeat imaging Type 2 noe betes mellitus 06383280 E11.42 see above with recent hypoglycem ia in hospitalpt is noncomplia nt with diet and eating large amounts of sugarnow onmetformi n 500 mg bid and BS 96-159 here 5 due to presentati on and lower BS will decrease metformin to 500 mg er dailyinsul in discontinu ed in hospitalmo nitor blood glucose prn Unstageabl e pressure injury of sacral region of back 5040224450 4703726 L89.152 wound team following for sacral wound with local care herewound care to follow monitor sitecurren tly granulatio n tissue at wound bed Asthenia 93471017 R53.1 PT OT eval and treatmonit or fall risk and need for increased support in community Cerebrovas cular accident 015680676 I63.89 maintained oneliquis 5 mg bidlipitor 80 mg qdcontinue d Hypertensive disorder 38 170190 I10 with lower bps here symptomati c with dizziness dc lisinopril 2.5 mg qdmonitor bp and need to reimplemen t Moderate protein-calorie malnutrition (weight for age 60-74 percent of standard) 814367616 E44.0 dietary eval for food choices and noncomplia nce with foodmonito r PO intake Benign pro static hyperplasia without outflow obstruction 106369801 N40.1 contflomax 0.4 mg bidfinaste ride 5 mg qdcontinue dchronic foleyupdat e urology with concerns Chronic pancreatitis 235 512085 K86.1 continue out patient medication supdate GI wiht concerns Alcohol dependence 45372 003 F10.20 recent withdrawal sx in hospital settingmon itor need for increased support in community Dizziness 809067796 R42 pt with dizziness and weakness todayvital s, BS, and labs on 04/03 per [facility] HPI04/08/24 plan:dc lisinopril decrease metformin to 500 mg er qdencourag e po fluidsmoni tor for stool sample to come back with orders in place for vanco if cdif comes back over the weekendcbc bmp mag on tor closely with nursing [id number] Ghazal Perez NP [facility] [address] 04/11/2024 12:22:52 04/11/2024 13:01:13 Altered mental status 347967712 R41.82 pt with ams and not able [...] by Organization Details LastModified Time None Recorded Payers Encounter Date Sequence Insurance Name Policy Number Policy Ricardo Covered Member ID Ricardo Member ID Guarantor Name 04/11/2024 1 [facility] (MEDICARE REPLACEMENT/A DVANTAGE - PPO) [id number] Conner Templeton [id number] Conner Templeton Notes Date Note Type Note Provider Name and Address Organization Details Recorded Time 04/11/2024 text/html Conner is seen for an acute rounding visit. [...] this am 12:24 without change followed by wilda at 12:30 without any change. He was [...] tch in his room when searched. Ghazal Perez NP [address] [facility], [address], [place], [address], [facility] - [employer] 04/11/2024 13:01:11
== END 2024-04-13 13:57 | disposition expired | DRG 871 ==
LOC: HO.ED 23:30 → HO.EDOVER 04-12 07:19
PROVIDERS: Emergency Medicine; Hospitalist; Internal Medicine; Admitting Provider Student in an Organized Health Care Education/Training Program; Emergency Provider Internal Medicine; PCP Family Medicine; Visit Provider Student in an Organized Health Care Education/Training Program
DX: A41.9 Sepsis, unspecified organism (principal); E43 Unspecified severe protein-calorie malnutrition; G93.41 Metabolic encephalopathy; J96.01 Acute respiratory failure with hypoxia; K72.00 Acute and subacute hepatic failure without coma; D62 Acute posthemorrhagic anemia; E87.20 Acidosis, unspecified; K86.0 Alcohol-induced chronic pancreatitis; F11.20 Opioid dependence, uncomplicated; N17.9 Acute kidney failure, unspecified; D68.9 Coagulation defect, unspecified; K92.2 Gastrointestinal hemorrhage, unspecified; K76.82 Hepatic encephalopathy; Z66 Do not resuscitate; Z86.73 Personal history of transient ischemic attack (TIA), and cerebral infarction without residual deficits; E11.40 Type 2 diabetes mellitus with diabetic neuropathy, unspecified; L89.159 Pressure ulcer of sacral region, unspecified stage; Z68.21 Body mass index [BMI] 21.0-21.9, adult; N40.0 Benign prostatic hyperplasia without lower urinary tract symptoms; R65.20 Severe sepsis without septic shock; F10.20 Alcohol dependence, uncomplicated; Z51.5 Encounter for palliative care; Z20.822 Contact with and (suspected) exposure to COVID-19; Z87.891 Personal history of nicotine dependence; Z79.4 Long term (current) use of insulin; Z79.01 Long term (current) use of anticoagulants; Z79.84 Long term (current) use of oral hypoglycemic drugs; Z79.899 Other long term (current) drug therapy
CPT/HCPCS: 0241U; 36415; 36600; 70450; 71045; 71250; 74176; 80048; 80053; 80076; 80143; 80179; 80307; 81001; 82140; 82248; 82272; 82533; 82550; 82803; 82947; 83605; 83690; 83880; 84443; 84484; 85014; 85018; 85025; 85610; 86704; 86706; 86709; 86803; 86850; 86900; 86901; 86923; 87040; 87077; 87086; 87088; 87186; 87205; 87340; 93005; 99285; J0295; J2270; J2354; J2470; J2543; J3370; J3430; J7168; P9016; P9047

== ENCOUNTER → 2024-04-11 13:38 | Outpatient (BNV) | payer MEDICARE, MEDICAID, SELFPAY | PROVIDERS: Emergency Provider Emergency Medicine; PCP Family Medicine; Visit Provider Radiology Diagnostic Radiology | DX: K80.80 Other cholelithiasis without obstruction (principal); J90 Pleural effusion, not elsewhere classified; R41.82 Altered mental status, unspecified | CPT/HCPCS: 71045 ==

== ENCOUNTER → 2024-04-11 13:38 | Outpatient (BNV) | payer MEDICARE, MEDICAID, SELFPAY | PROVIDERS: Admitting Provider Student in an Organized Health Care Education/Training Program; Emergency Provider Internal Medicine; PCP Family Medicine; Visit Provider Internal Medicine Cardiovascular Disease | DX: R94.31 Abnormal electrocardiogram [ECG] [EKG] (principal) | CPT/HCPCS: 93010 ==

== ENCOUNTER → 2024-04-12 01:24 | Outpatient (BNV) | payer MEDICARE, MEDICAID, SELFPAY | PROVIDERS: Admitting Provider Student in an Organized Health Care Education/Training Program; Emergency Provider Internal Medicine; PCP Family Medicine; Visit Provider Hospitalist | DX: J69.0 Pneumonitis due to inhalation of food and vomit (principal); E87.20 Acidosis, unspecified; J90 Pleural effusion, not elsewhere classified | CPT/HCPCS: 99223 ==

== ENCOUNTER → 2024-04-12 01:24 | Outpatient (BNV) | payer MEDICARE, MEDICAID, SELFPAY | PROVIDERS: Admitting Provider Student in an Organized Health Care Education/Training Program; Emergency Provider Internal Medicine; PCP Family Medicine; Visit Provider Student in an Organized Health Care Education/Training Program | DX: K76.82 Hepatic encephalopathy (principal) | CPT/HCPCS: 99238; 99499 ==